=== PATIENT | male | born 1960 | race Caucasian/White ===

== ENCOUNTER 2021-01-17 08:21 | Outpatient (REF) | payer OTHER, SELFPAY ==
[2021-01-17 08:52] LABS: MANUAL DIFF FLAG NO
[2021-01-17 09:17] LABS: Basophils Absolute Auto 0.1 X10*3/uL (0.0-0.2); Basophils Percent Auto 0.8 % (0-2); Eosinophils Absolute Auto 0.3 X10*3/uL (0.0-0.4); Eosinophils Percent Auto 3.5 % (0-4); Hematocrit 46.1 % (42-52); Hemoglobin 15.6 g/dl (14.0-18.0); Imm Gran Abs Auto 0.03 X10*3/uL (0.00-0.03); Imm Gran Pct Auto 0.4 % (0.0-0.4); Lymphocytes Absolute Auto 2.1 X10*3/uL (1.2-4.9); Lymphocytes Percent Auto 29.4 % (20-40); Mean Corpuscular HGB Conc 33.8 g/dl (31.0-36.0); Mean Corpuscular Volume 91.5 fL (80-98); Mean Platelet Volume 10.1 fL (9.4-12.4); Monocytes Absolute Auto 0.6 X10*3/uL (0.1-1.2); Monocytes Percent Auto 8.2 % (2-11); Neutrophils Absolute Auto 4.1 X10*3/uL (2.0-8.3); Neutrophils Percent Auto 57.7 % (45-73); Platelet Count 235 X10*3/uL (160-400); Red Blood Count 5.04 X10*6/uL (4.60-5.80); Red Cell Distribution Width 12.9 % (11.0-16.0); White Blood Count 7.1 X10*3/uL (4.8-10.8)
[2021-01-17 09:19] LABS: Alanine Aminotransferase 31 U/L (0-40); Albumin Level 4.5 g/dL (3.5-5.0); Alkaline Phosphatase 55 U/L (39-117); Anion Gap 12 (12-20); Aspartate Amino Transferase 21 U/L (5-37); Bilirubin Total 0.6 mg/dL (0.0-1.0); Blood Urea Nitrogen 17 mg/dL (9-16); Calcium 9.1 mg/dL (8.4-10.2); Carbon Dioxide 27 mmol/L (22-29); Chloride 104 mmol/L (96-108); Cholesterol 196 mg/dL; Estimated Glomerular Filt Rate > 60; Glucose Fasting 120 mg/dL (60-99); HDL Cholesterol 67 mg/dL; LDL Cholesterol Calculated 94 mg/dl; Potassium 4.3 mmol/L (3.3-5.1); Sodium 139 mmol/L (135-145); Total Protein 7.4 g/dL (6.5-8.0); Triglycerides 175 mg/dL
[2021-01-17 09:31] LABS: Thyroid Stimulating Hormone 1.43 uIU/mL (0.32-4.0); Vitamin D 25-OH Total 35.3 ng/mL (>30)
[2021-01-17 10:50] LABS: Prostate Specific Antigen 0.51 ng/mL (<0.05-4.0)
== END 2021-01-17 08:22 | disposition home or self-care (01) ==
LOC: HO.LAB 08:21
PROVIDERS: Visit Provider Internal Medicine
DX: E78.5 Hyperlipidemia, unspecified (principal); R03.0 Elevated blood-pressure reading, without diagnosis of hypertension; K21.9 Gastro-esophageal reflux disease without esophagitis; Z12.5 Encounter for screening for malignant neoplasm of prostate
CPT/HCPCS: 36415; 80053; 80061; 82306; 84153; 84443; 85025

== ENCOUNTER → 2021-04-12 13:53 | Outpatient (REF) | payer OTHER, SELFPAY | LOC: HO.SL 13:53 | PROVIDERS: PCP Internal Medicine; Visit Provider Internal Medicine | DX: G47.33 Obstructive sleep apnea (adult) (pediatric) (principal) | CPT/HCPCS: 95806 ==

== ENCOUNTER → 2021-06-13 09:38 | Outpatient (BNVA) | payer OTHER, SELFPAY | PROVIDERS: PCP Internal Medicine; Visit Provider Internal Medicine | DX: G47.33 Obstructive sleep apnea (adult) (pediatric) (principal); I10 Essential (primary) hypertension; E66.9 Obesity, unspecified; R73.02 Impaired glucose tolerance (oral); F41.8 Other specified anxiety disorders; Z87.891 Personal history of nicotine dependence; Z68.31 Body mass index [BMI] 31.0-31.9, adult | CPT/HCPCS: 99202 ==

== ENCOUNTER 2021-08-14 11:23 | Day surgery (SDC) | payer OTHER, SELFPAY ==
--- NOTE | 2021-08-11 12:10 | HO.ANESPROP2 ---
Documented by User: Cristina Guerrero NP 08/11/21 12:12 HPI - Anesthesia Eval Consult details Narrative: 61yo M for Upper Endoscopy with Balloon Dilitation, Colonoscopy ? daily ETOH PMFSH Active Problems Active Problems: All Active Problems (Updated 07/07/21 @ 10:22 by Tracy Peraza MD) Generalized anxiety disorder (Acute) Annual physical exam (Acute) SILVERIO (obstructive sleep apnea) (Acute) Obesity (BMI 30.0-34.9) (Acute) Colon cancer screening (Acute) Allergic reaction (Acute) Psoriasis (Acute) Esophageal stricture (Acute) GERD (gastroesophageal reflux disease) (Acute) Hypertension (Acute) Obesity (BMI 30-39.9) (Acute) Impaired glucose tolerance (Acute) Past Medical History Medical History GERD (gastroesophageal reflux disease) Hypertension Impaired glucose tolerance Obesity (BMI 30-39.9) Obesity (BMI 30.0-34.9) SILVERIO (obstructive sleep apnea) Family History Family History Mother Heart attack Father No problems noted. Brother No problems noted. Sister No problems noted. Sister No problems noted. Brother Heart attack Son No problems noted. Son No problems noted. Daughter No problems noted. Surgical History Surgical History H/O left knee surgery History of cataract surgery History of shoulder surgery Social History Social History Housing: House Alcohol intake: current Alcohol intake frequency: 0-2 drinks per day Patient Tobacco Use Status: Former Tobacco user Years Smoked: Quit 1998 e-Cigarette/Vaping Use: Never Used Second Hand Smoke Exposure: No Use of substances other than those prescribed or required for medical reasons: No Are you DNR?: No Advance Directives: No Advance Directives Information Provided: No Recently lost weight without trying: No Nutrition Risks: No Nutritional Risk Current occupational status: employed Meds Allergies Allergy/AdvReac Type Severity Reaction Status Date / Time No Known Allergies Allergy Verified 07/07/21 10:06 Home Medications Medication Instructions Recorded Confirmed Last Taken Type aspirin 81 mg tablet,delayed 81 mg PO DAILY 03/09/21 07/07/21 Unknown History release (Adult Low Dose Aspirin) atorvastatin 20 mg tablet 20 mg PO DAILY 03/09/21 07/07/21 Unknown History calcium citrate 250 mg PO DAILY 03/09/21 07/07/21 Unknown History cholecalciferol (vitamin D3) 25 25 mcg PO DAILY 03/09/21 07/07/21 Unknown History mcg (1,000 unit) capsule diltiazem HCl 180 mg capsule,24 180 mg PO DAILY 03/09/21 07/07/21 08/14/21 History hr,extended release folic acid 400 mcg tablet 0.4 mg PO DAILY 03/09/21 07/07/21 Unknown History metoprolol succinate 50 mg 50 mg PO DAILY 03/09/21 07/07/21 08/14/21 History tablet,extended release 24 hr omeprazole 20 mg capsule,delayed 20 mg PO DAILY 03/09/21 07/07/21 08/14/21 History release pyridoxine (vitamin B6) 50 mg 50 mg PO DAILY 03/09/21 07/07/21 Unknown History tablet Exam Exam Date and Time: August 11, 2021 1210 Pertinent Lab Results Pertinent Lab Results: Laboratory Tests 01/17/21 01/17/21 08:34 08:34 WBC 7.1 Hgb 15.6 Hct 46.1 Plt Count 235 Sodium 139 Potassium 4.3 Chloride 104 Carbon Dioxide 27 BUN 17 H Creatinine 0.96 Assessment and Plan Assessment Anesthesia Assessment: Chart Reviewed Documented by User: Laureen Dahl MD 08/14/21 12:36 [facility] Past Medical History Medical History GERD (gastroesophageal reflux disease) Hypertension Impaired glucose tolerance Obesity (BMI 30-39.9) Obesity (BMI 30.0-34.9) SILVERIO (obstructive sleep apnea) Family History Family History Mother Heart attack Father No problems noted. Brother No problems noted. Sister No problems noted. Sister No problems noted. Brother Heart attack Son No problems noted. Son No problems noted. Daughter No problems noted. Surgical History Surgical History H/O left knee surgery History of cataract surgery History of shoulder surgery History of Problems with Anesthesia: No Social History Social History Housing: House Alcohol intake: current Alcohol intake frequency: 0-2 drinks per day Patient Tobacco Use Status: Former Tobacco user Years Smoked: Quit 1998 e-Cigarette/Vaping Use: Never Used Second Hand Smoke Exposure: No Use of substances other than those prescribed or required for medical reasons: No Are you DNR?: No Advance Directives: No Advance Directives Information Provided: No Recently lost weight without trying: No Nutrition Risks: No Nutritional Risk Current occupational status: employed Meds Allergies Allergy/AdvReac Type Severity Reaction Status Date / Time No Known Allergies Allergy Verified 07/07/21 10:06 Home Medications Medication Instructions Recorded Confirmed Last Taken Type aspirin 81 mg tablet,delayed 81 mg PO DAILY 03/09/21 07/07/21 Unknown History release (Adult Low Dose Aspirin) atorvastatin 20 mg tablet 20 mg PO DAILY 03/09/21 07/07/21 Unknown History calcium citrate 250 mg PO DAILY 03/09/21 07/07/21 Unknown History cholecalciferol (vitamin D3) 25 25 mcg PO DAILY 03/09/21 07/07/21 Unknown History mcg (1,000 unit) capsule diltiazem HCl 180 mg capsule,24 180 mg PO DAILY 03/09/21 07/07/21 08/14/21 History hr,extended release folic acid 400 mcg tablet 0.4 mg PO DAILY 03/09/21 07/07/21 Unknown History metoprolol succinate 50 mg 50 mg PO DAILY 03/09/21 07/07/21 08/14/21 History tablet,extended release 24 hr omeprazole 20 mg capsule,delayed 20 mg PO DAILY 03/09/21 07/07/21 08/14/21 History release pyridoxine (vitamin B6) 50 mg 50 mg PO DAILY 03/09/21 07/07/21 Unknown History tablet Exam Airway Mallampati Class: II TM Dist: >3cm Neck ROM: Full Loose/Missing/Broken Teeth: No Heart: RRR Lungs: CTA Assessment and Plan Assessment Anesthesia Assessment: Anesthesia Plan Discussed Final Anesthetic Review History of Problems with Anesthesia: No NPO: Yes ASA Class: III Final Preanesthetic Review: Meds/Allgs Chart Reviewed, Consent Obtained/Reviewed and Anes Risks/Benef Reviewed Patient Risk: Intermediate Procedure Risk: Intermediate Anesthetic Plan Anesthetic Plan: MAC: Disposition: Standard PACU
[2021-08-14 11:51] VITALS: BMI 31.1
[2021-08-14 12:00] VITALS: BP 147/83; PULSE 91; RESP 16; TEMP 36.4; O2SAT 94
--- NOTE | 2021-08-14 12:35 | PC.NURSE ---
myself n another rn attempting multiple iv insertions. anesthesia by the bedside. alisia well. patient states hes a hardstick
[2021-08-14] MEDS: Lactated Ringers 1,000 ML 100 ML IVCONT (12:36)
[2021-08-14 14:05] VITALS: BP 99/56; PULSE 64; RESP 16; TEMP 36.8; O2SAT 95
--- NOTE | 2021-08-14 14:10 | PM.OP ---
Brief Operative Note Date of Service: 08/14/21 Pre-op diagnosis: GERD, Dysphagia, Screening Post-op diagnosis: other (Hiatal hernia, GERD, Very mild distal esophageal stricture, Colon polyps) Procedure: EGD with Balloon Dilation and biopsies, Colonoscopy to the cecum and TI with cold snare polypectomy(Cecum) and bx/removal of polyps Surgeon: Dayron Yousif Anesthesia: MAC Was an [employer] Technician used for this Procedure?: No Estimated blood loss (mL): 3.0 Pathology: other (A. EG Junction at 39cm B. Cecal polyp C. Ascending colon polyp D. Rectal polyp) Condition: stable Disposition: PACU
[2021-08-14 14:20] VITALS: BP 101/59; PULSE 71; RESP 16; O2SAT 93
[2021-08-14 14:35] VITALS: BP 117/77; PULSE 55; RESP 20; TEMP 36.8; O2SAT 95
--- NOTE | 2021-08-14 15:16 | OP_ITS ---
SURGEON: Dayron Yousif MD INDICATIONS: The patient presents for evaluation of gastroesophageal reflux, dysphagia, and colorectal cancer screening. Full consent has been obtained from him for this, including risks of bleeding and perforation. PREOPERATIVE DIAGNOSIS: POSTOPERATIVE DIAGNOSIS: PROCEDURE PERFORMED: Esophagogastroduodenoscopy with balloon dilation of gastroesophageal junction, and biopsies, and colonoscopy to the cecum and terminal ileum with cold snare polypectomy, and biopsy and removal of polyps. ESTIMATED BLOOD LOSS: COMPLICATIONS: ANESTHESIA: Monitored anesthesia care. ASSISTANTS: SPECIMENS: PREOPERATIVE DIAGNOSES: Colorectal cancer screening and dysphagia, gastroesophageal reflux. POSTOPERATIVE DIAGNOSES: Colorectal cancer screening and dysphagia, gastroesophageal reflux, hiatal hernia, colon polyps, diverticulosis, and internal hemorrhoids. DESCRIPTION OF PROCEDURE: The patient was placed in the left lateral decubitus position. The Olympus video gastroscope was passed in the posterior oropharynx and upper esophagus under direct vision. The scope was passed slowly into the distal esophagus. The gastroesophageal junction appeared at 39 cm. There was a very minimal irregularity consistent with reflux, but no evidence of esophagitis nor any definitive evidence of Don's mucosa. There may have been a very minimal fibrotic stricture, but the scope easily entered the stomach. There was a small to moderate-sized hiatal hernia. The scope was advanced to pylorus and the duodenum was cannulated the descending portion. The duodenum including the bulb appeared normal without mass or ulceration. The scope was withdrawn back into the stomach. The gastric antrum and body appeared normal with good peristalsis. Scope was retroflexed visualizing the proximal stomach carefully, which appeared normal, without any sign of mass or ulceration. The scope was straightened out and withdrawn back into the esophagus. I did use a [employer] incremental balloon to dilate the gastroesophageal junction from 18 mm to 19 mm to 20 mm at the recommended pressure for between 30 and 60 seconds each. There appeared to be some minimal heme noted post-dilation. The 20 mm balloon actually pulled easily into and out of the esophagus. I did obtain some biopsies at the EG junction at 39 cm. Proximal to this, the esophageal mucosa appeared normal. There was no sign of any proximal esophageal rings nor stricture. The scope was withdrawn from the patient. He was turned around for the colonoscopy. The digital rectal exam revealed no abnormalities. The Olympus video pediatric colonoscope was entered into the rectum and advanced easily to the cecum. Once in the cecum, I did identify cecal pouch with appendiceal orifice a normal-appearing ileocecal valve. The terminal ileum was cannulated and appeared normal. The scope was withdrawn back in the colon. In the cecum, was an approximately 5 or 6 mm slightly raised polyp, which was removed in its majority with a cold snare polypectomy. Two small portions were then biopsied and removed with cold biopsy forceps. The polyp was recovered by suction. The remainder of the cecum appeared normal. The scope was then slowly withdrawn assessing all mucosal surfaces carefully. Preparation was excellent. In the ascending colon and in the rectum, were flat approximately 5 mm polyps, which were each biopsied and completely removed with cold biopsy forceps. I did not visualize any other polyps, colitis, nor angiodysplasia. There was a mild amount of sigmoid diverticulosis. In the rectum, scope was retroflexed visualizing small internal hemorrhoids, but no other pathology. The rectal mucosa appeared normal. The scope was straightened out and withdrawn from the patient. He tolerated the procedures well and was returned to the recovery area in stable condition. IMPRESSION: 1. Hiatal hernia, gastroesophageal reflux, question of very mild distal esophageal stricture, status post balloon dilation. 2. Colon polyps. 3. Diverticulosis. 4. Internal hemorrhoids. PLAN: The results of the pathology will be checked. If the colon polyps are tubular adenoma, I would recommend a followup colonoscopy in 5 years. If they are only hyperplastic, I would recommend a followup colonoscopy in 10 years. He was advised to continue his daily omeprazole. He was advised not to use any aspirin and NSAIDs for 1 more week. If he continues to have significant dysphagia despite today's procedure, I would then recommend a barium swallow with a barium tablet to further assess things. May very well be having some symptoms from the hiatal hernia in regard to esophageal spasm and reflux. This has been discussed with his . MD JESSE Luna/MARIAELENA / [id number]
== END 2021-08-14 15:19 | disposition home or self-care (01) ==
PROVIDERS: PCP Internal Medicine; Visit Provider Internal Medicine
PROC: (CPT 45385; principal; 2021-08-14 12:30)
DX: Z12.11 Encounter for screening for malignant neoplasm of colon (principal); D12.0 Benign neoplasm of cecum; D12.2 Benign neoplasm of ascending colon; K62.1 Rectal polyp; K57.30 Diverticulosis of large intestine without perforation or abscess without bleeding; K64.8 Other hemorrhoids; K22.2 Esophageal obstruction; R13.19 Other dysphagia; K21.9 Gastro-esophageal reflux disease without esophagitis; K44.9 Diaphragmatic hernia without obstruction or gangrene; Z79.899 Other long term (current) drug therapy
CPT/HCPCS: 45385; 45380; 43249; 43239; 88305; C1726; J3010

== ENCOUNTER → 2021-09-11 10:16 | Outpatient (BNVA) | payer OTHER, SELFPAY | PROVIDERS: PCP Internal Medicine; Visit Provider Internal Medicine | DX: G47.33 Obstructive sleep apnea (adult) (pediatric) (principal); E66.9 Obesity, unspecified; Z68.32 Body mass index [BMI] 32.0-32.9, adult | CPT/HCPCS: 99212 ==

== ENCOUNTER 2021-11-06 09:54 | Outpatient (REF) | payer OTHER, SELFPAY ==
[2021-11-06 10:17] LABS: MANUAL DIFF FLAG NO
[2021-11-06 10:53] LABS: Basophils Absolute Auto 0.1 X10*3/uL (0.0-0.2); Basophils Percent Auto 0.8 % (0-2); Eosinophils Absolute Auto 0.2 X10*3/uL (0.0-0.4); Eosinophils Percent Auto 2.6 % (0-4); Hemoglobin 13.5 g/dl (14.0-18.0); Imm Gran Abs Auto 0.04 X10*3/uL (0.00-0.03); Imm Gran Pct Auto 0.5 % (0.0-0.4); Lymphocytes Absolute Auto 1.9 X10*3/uL (1.2-4.9); Lymphocytes Percent Auto 25.1 % (20-40); Mean Corpuscular HGB Conc 33.8 g/dl (31.0-36.0); Mean Platelet Volume 9.8 fL (9.4-12.4); Monocytes Absolute Auto 0.6 X10*3/uL (0.1-1.2); Monocytes Percent Auto 8.3 % (2-11); Neutrophils Absolute Auto 4.8 x10*3/uL (2.0-8.3); Neutrophils Percent Auto 62.7 % (45-73); Platelet Count 260 X10*3/uL (160-400); Red Blood Count 4.35 X10*6/uL (4.60-5.80); Red Cell Distribution Width 12.7 % (11.0-16.0); White Blood Count 7.6 X10*3/uL (4.8-10.8)
== END 2021-11-06 09:55 | disposition home or self-care (01) ==
LOC: HO.LAB 09:54
PROVIDERS: Absent Provider Internal Medicine; PCP Internal Medicine; Visit Provider Physician Assistant
DX: S30.1XXA Contusion of abdominal wall, initial encounter (principal)
CPT/HCPCS: 36415; 85025

== ENCOUNTER 2022-01-29 10:26 | Outpatient (REF) | payer OTHER, SELFPAY ==
[2022-01-29 10:29] VITALS: BP 153/75; PULSE 75; RESP 16; TEMP 36.8; O2SAT 97
[2022-01-29 10:30] VITALS: BMI 31.1
== END 2022-01-29 10:27 | disposition home or self-care (01) ==
LOC: HO.MS 10:26
PROVIDERS: PCP Internal Medicine; Visit Provider Ophthalmology
PROC: (CPT 66821; principal; 2022-01-29 12:10)
DX: H26.491 Other secondary cataract, right eye (principal); Z96.1 Presence of intraocular lens; H52.4 Presbyopia; H35.371 Puckering of macula, right eye; I10 Essential (primary) hypertension; Z79.82 Long term (current) use of aspirin; Z79.899 Other long term (current) drug therapy; Z87.891 Personal history of nicotine dependence
CPT/HCPCS: 66821

== ENCOUNTER → 2022-03-08 09:53 | Outpatient (BNVA) | payer OTHER, SELFPAY | PROVIDERS: PCP Internal Medicine; Visit Provider Internal Medicine | DX: G47.33 Obstructive sleep apnea (adult) (pediatric) (principal); E66.9 Obesity, unspecified; Z68.32 Body mass index [BMI] 32.0-32.9, adult | CPT/HCPCS: 99212 ==

== ENCOUNTER 2022-06-13 09:51 | Outpatient (REF) | payer OTHER, SELFPAY ==
[2022-06-13 10:03] LABS: MANUAL DIFF FLAG NO
[2022-06-13 10:25] LABS: Basophils Absolute Auto 0.1 X10*3/uL (0.0-0.2); Eosinophils Absolute Auto 0.2 X10*3/uL (0.0-0.4); Eosinophils Percent Auto 3.4 % (0-4); Hematocrit 44.7 % (42.0-52.0); Hemoglobin 15.3 g/dl (14.0-18.0); Imm Gran Abs Auto 0.02 X10*3/uL (0.00-0.03); Imm Gran Pct Auto 0.3 % (0.0-0.4); Lymphocytes Absolute Auto 1.8 X10*3/uL (1.2-4.9); Lymphocytes Percent Auto 26.1 % (20-40); Mean Corpuscular HGB Conc 34.2 g/dl (31.0-36.0); Mean Corpuscular Hemoglobin 31.1 pg (27.0-33.0); Mean Corpuscular Volume 90.9 fL (80.0-98.0); Mean Platelet Volume 9.5 fL (9.4-12.4); Monocytes Absolute Auto 0.6 X10*3/uL (0.1-1.2); Monocytes Percent Auto 8.7 % (2-11); Neutrophils Absolute Auto 4.3 x10*3/uL (2.0-8.3); Neutrophils Percent Auto 60.5 % (45-73); Platelet Count 241 X10*3/uL (160-400); Red Blood Count 4.92 X10*6/uL (4.60-5.80); Red Cell Distribution Width 12.7 % (11.0-16.0)
[2022-06-13 10:38] LABS: Estimated Average Glucose 114 mg/dL; Hemoglobin A1C 150.3381 umol/L; Hemoglobin A1c % 5.6 %
[2022-06-13 10:53] LABS: Alanine Aminotransferase 40 U/L (0-40); Albumin Level 4.5 g/dL (3.5-5.0); Alkaline Phosphatase 58 U/L (39-117); Anion Gap 16 (12-20); Aspartate Amino Transferase 26 U/L (5-37); Bilirubin Total 0.6 mg/dL (0.0-1.0); Blood Urea Nitrogen 20 mg/dL (9-16); Calcium 9.2 mg/dL (8.4-10.2); Carbon Dioxide 25 mmol/L (22-29); Chloride 103 mmol/L (96-108); Cholesterol 195 mg/dL; Estimated Glomerular Filt Rate > 60; Glucose Random 104 mg/dL (60-115); HDL Cholesterol 56 mg/dL; LDL Cholesterol Calculated 98 mg/dl; Potassium 4.2 mmol/L (3.3-5.1); Sodium 140 mmol/L (135-145); Total Protein 7.6 g/dL (6.5-8.0); Triglycerides 209 mg/dL
[2022-06-13 11:06] LABS: Free T4 (Free Thyroxine) 0.85 ng/dL (0.71-1.85); Prostate Specific Antigen Scr 0.93 ng/mL (<0.05-4.0); Vitamin D 25-OH Total 50.5 ng/mL (>30)
[2022-06-13 11:56] LABS: Folate > 20.0 ng/mL (> or = 4.0); Vitamin B12 289 pg/mL (200-900)
== END 2022-06-13 09:52 | disposition home or self-care (01) ==
LOC: HO.LAB 09:51
PROVIDERS: PCP Internal Medicine; Visit Provider Internal Medicine
DX: Z12.5 Encounter for screening for malignant neoplasm of prostate (principal); R73.02 Impaired glucose tolerance (oral); E78.00 Pure hypercholesterolemia, unspecified; I10 Essential (primary) hypertension
CPT/HCPCS: 36415; 80053; 80061; 82306; 82607; 82746; 83036; 84153; 84439; 84443; 85025

== ENCOUNTER → 2022-08-16 09:35 | Outpatient (BNVA) | payer OTHER, SELFPAY | PROVIDERS: PCP Internal Medicine; Visit Provider Internal Medicine | DX: G47.33 Obstructive sleep apnea (adult) (pediatric) (principal); E66.9 Obesity, unspecified; Z68.32 Body mass index [BMI] 32.0-32.9, adult | CPT/HCPCS: 99212 ==

== ENCOUNTER → 2023-02-11 09:31 | Outpatient (BNVA) | payer OTHER, SELFPAY | PROVIDERS: PCP Internal Medicine; Visit Provider Internal Medicine | DX: G47.33 Obstructive sleep apnea (adult) (pediatric) (principal); E66.9 Obesity, unspecified; Z68.33 Body mass index [BMI] 33.0-33.9, adult | CPT/HCPCS: 99212 ==

== ENCOUNTER 2023-06-18 09:42 | Outpatient (AMB) | payer OTHER, SELFPAY ==
[2023-06-18 09:46] VITALS: BP 144/80; PULSE 78; O2SAT 98; BMI 31.5
--- NOTE | 2023-06-18 09:46 | A.OFFPC_ITS ---
Vital Signs 06/18/23 09:46 06/18/23 10:23 Height 6 ft Weight 232 lb BMI 31.5 BP 144/80 H 132/86 Blood Pressure Location Lt brachial Lt brachial Position Sitting Sitting Pulse 78 Pulse Source Pulse Oximeter Pulse Oximetry (%) 98 Oxygen Delivery Method Room Air Intake Visit Reasons: HTN,IGT, GERD, bilateral feet pain Allergies clindamycin Adverse Reaction (Verified 06/18/23 09:46) Anaphylaxis Medication List - Last Reconciled 06/18/23 by Tracy Peraza MD aspirin (Adult Low Dose Aspirin) 81 mg PO DAILY atorvastatin 20 mg PO DAILY 90 days calcium citrate 250 mg PO DAILY cholecalciferol (vitamin D3) 25 mcg PO DAILY diltiazem HCl TAKE 1 CAPSULE BY MOUTH DAILY folic acid 0.4 mg PO DAILY metoprolol succinate ER 50 mg PO DAILY 90 days omeprazole 40 mg PO BID pyridoxine (vitamin B6) 50 mg PO DAILY zolpidem 5 mg PO BEDTIME PRN 90 days Tobacco use date assessed: 02/13/23 Dental Screening Dental Screen Date: 06/18/23 Did you have a dental visit in the last 12 months?: Yes Did you have a dental problem in the last 6 months where you did not have access to dental care?: No Was dental information given to patient?: Patient has dentist HPI HTN,IGT, GERD HPI Details 62-year-old obese male with impaired glu cose tolerance hypertension GERD obstructive sleep apnea coming in for follow-up. Patient was last seen in February 2023 for physical exam. Colonoscopy is up-to-date August 2021. [facility] Medical History GERD (gastroesophageal reflux disease) Hypertension Impaired glucose tolerance Obesity (BMI 30.0-34.9) SILVERIO (obstructive sleep apnea) Surgical History H/O left knee surgery History of cataract surgery History of shoulder surgery Family History (Updated 06/18/23 @ 09:[address] [facility]) Mother Heart attack Father No problems noted. Brother No problems noted. Sister No problems noted. Sister No problems noted. Brother Heart attack Son No problems noted. Son No problems noted. Daughter No problems noted. Social History (Updated 02/13/23 @ 14:10 by NAVID Burr) Housing: House Alcohol intake: current Alcohol intake frequency: a few times a week Patient Tobacco Use Status: Former Tobacco user Tobacco use type: Cigarette Years Smoked: Quit 1998 e-Cigarette/Vaping Use: Never Used Second Hand Smoke Exposure: No Current occupational status: employed Cognitive needs: No Hearing needs: No Vision needs: Yes (reading glasses) Questionnaire PHQ-9 Over the last 2 weeks, how often have you been bothered by any of the following problems? 1. Little interest or pleasure in doing things: more than half the days 2. Feeling down, depressed, or hopeless: more than half the days 3. Trouble falling or staying asleep, or sleeping too much: more than half the days 4. Feeling tired or having little energy: more than half the days 5. Poor appetite or overeating: not at all 6. Feeling bad about yourself - or that you are a failure or have let yourself or your family down: not at all 7. Trouble concentrating on things, such as reading the newspaper or watching television: not at all 8. Moving or speaking so slowly that other people could have noticed. Or the opposite - being so fidgety or restless that you have been moving around a lot more than usual: not at all 9. Thoughts that you would be better off or of hurting yourself in some way: not at all Total score: 8 Depression Screening Interpretation: Positive 32242 - PHQ-9 Billing: Yes Source: Developed by Drs. Dayron Osborne, Ronald Mcclure and colleagues, with an educational joya from [employer]. Thrive Questionnaire Date Thrive assessed: 02/13/23 AUDIT C Alcohol Use Questionnaire (AUDIT-C) 1. How often do you have a drink containing alcohol?: 4 or more times a week 2. How many drinks containing alcohol do you have on a typical day when you are drinking?: 1 or 2 3. How often do you have six or more drinks on one occasion?: Never Total Score: 4 YADIRA-7 AMB Questionnaire YADIRA-7 Date YADIRA - 7 assessed: 02/13/23 Source: Developed by Drs. Dayron Osborne, Ronald Mcclure and colleagues, with an educational joya from [employer]. Physical exam (Primary Care) Vital Signs: Last Vital Signs Pulse 78 06/18/23 09:46 BP 132/86 06/18/23 10:23 Pulse Ox 98 06/18/23 09:46 Oxygen Delivery Method Room Air 06/18/23 09:46 BMI result Body Mass Index 31.5 Tobacco/Smoking Status: Tobacco use Status Tobacco use date assessed 02/13/23 06/18/23 09:54 Patient Tobacco Use Status Former Tobacco user 06/18/23 09:54 Tobacco use type Cigarette 06/18/23 09:54 e-Cigarette/Vaping Use Never Used 06/18/23 09:54 PHQ-9: PHQ-9 Score PHQ-9: Total score 8 06/18/23 19:10 Depression Screening Interpretation: Positive Thrive Assessment: Date of Thrive Assessment Date Thrive assessed 02/13/23 06/18/23 09:54 Const General: alert; No acute distress Eyes Conjunctivae: conjunctivae normal Resp Auscultation: clear to auscultation bilaterally Cardio Rate: regular rate Rhythm: regular rhythm GI Inspection: Yes normal to inspection Extrem General: Yes normal to inspection and No edema Assessment and Plan Assessment & Plan (1) Impaired glucose tolerance: Code(s): R73.02 - Impaired glucose tolerance (oral) Plan: Decrease the amount of carbohydrate intake, pasta, bread, rice and potatoes are all sugar and that is aside from all the sweet stuff, remember that fruits are good but they are Sweet also. (2) Hypertension: Code(s): I10 - Essential (primary) hypertension Qualifiers: Hypertension type: essential hypertension Qualified Code(s): I10 - Essential (primary) hypertension Plan: Continue with blood pressure medication. Decrease salt intake and exercise patient takes diltiazem metoprolol (3) GERD (gastroesophageal reflux disease): Code(s): K21.9 - Gastro-esophageal reflux disease without esophagitis Qualifiers: Esophagitis presence: without esophagitis Qualified Code(s): K21.9 - Gastro-esophageal reflux disease without esophagitis Plan: Avoid the foods that causes that usually spicy foods, tomato products, juices, coffee, soda and foods that your sensitive to. After eating do not lie down, allow 3-4 hours before in lie down. And keep the head of bed above 30 degrees to avoid the acid from going up. On omeprazole 40 mg twice a day (4) Obesity (BMI 30.0-34.9): Comment: PATIENT REMAINS MODERATELY OBESE. DISCUSSED ABOUT NEED TO LOSE WEIGHT. HE IS ENCOURAGED TO WALK DAILY, AND REDUCE INTAKE OF CARBOHYDRATES./CALORIES. Code(s): E66.9 - Obesity, unspecified Plan: Diet and exercise (5) SILVERIO (obstructive sleep apnea): Comment: PATIENT USING CPAP REGULARLY, COMPLIANCE IS OK . RE-INFORCED TO USE CPAP EVERY NIGHT . Order for new supplies is sent. Revisit Q 6 months Code(s): G47.33 - Obstructive sleep apnea (adult) (pediatric) Plan: Continue to use the CPAP more than 4 hours a night and benefits from this (6) Generalized anxiety disorder: Comment[facility] Code(s): F41.1 - Generalized anxiety disorder Plan: [place] (7) Hypercholesterolemia: Code(s): E78.00 - Pure hypercholesterolemia, unspecified Plan: Avoid fried foods, chicken skin, eggs, butter margarine, pastries and meat. Be it pork or beef they have a lot of cholesterol LDL goal of less than 130 and triglyceride of less than 150 (8) Insomnia: Code(s): G47.00 - Insomnia, unspecified Plan: zolpidem did not work and so change to seroquel (9) Plantar fasciitis, bilateral: Code(s): M72.2 - Plantar fascial fibromatosis Orders: Orders Complete Blood Count Auto Diff Today Z13.0 - Encounter for screening for diseases of the blood and blood-forming organs and certain disorders involving the immune mechanism Comprehensive Met. Panel Today I10 - Essential (primary) hypertension Hemoglobin A1c Today R73.02 - Impaired glucose tolerance (oral) Lipid Panel Today I10 - Essential (primary) hypertension, Z13.220 - Encounter for screening for lipoid disorders PSA,Total (Free>4and<10) Today Z12.5 - Encounter for screening for malignant neoplasm of prostate TSH reflex Free T4 Today Z13.29 - Encounter for screening for other suspected endocrine disorder Referrals Podiatry Referral M72.2 - Plantar fascial fibromatosis Medications: New quetiapine (Seroquel) 50 mg PO BEDTIME 90 tabs 1RF G47.00 - Insomnia, unspecified Discontinued zolpidem Discontinued Reason: None 5 mg PO BEDTIME 90 days PRN 90 tabs 1RF sleep G47.00 - Insomnia, unspecified Coding Level of Care Code Est Pt Level 4 (72802) Diagnoses Impaired glucose tolerance R73.02 Essential hypertension I10 Hypertension type: essential hypertension Gastroesophageal reflux disease without esophagitis K21.9 Esophagitis presence: without esophagitis Obesity (BMI 30.0-34.9) E66.9 SILVERIO (obstructive sleep apnea) G47.33 Generalized anxiety disorder F41.1 Hypercholesterolemia E78.00 Insomnia G47.00 Plantar fasciitis, bilateral M72.2
[2023-06-18 10:23] VITALS: BP 132/86
== END 2023-06-18 10:28 | disposition home or self-care (01) ==
PROVIDERS: PCP Internal Medicine; Visit Provider Internal Medicine
DX: R73.02 Impaired glucose tolerance (oral) (principal); I10 Essential (primary) hypertension; K21.9 Gastro-esophageal reflux disease without esophagitis; G47.33 Obstructive sleep apnea (adult) (pediatric); F41.1 Generalized anxiety disorder; E78.00 Pure hypercholesterolemia, unspecified; G47.00 Insomnia, unspecified; M72.2 Plantar fascial fibromatosis
CPT/HCPCS: 99214

== ENCOUNTER 2023-06-19 08:44 | Outpatient (REF) | payer OTHER, SELFPAY ==
[2023-06-19 08:59] LABS: MANUAL DIFF FLAG NO
[2023-06-19 09:26] LABS: Basophils Absolute Auto 0.1 X10*3/uL (0.0-0.2); Basophils Percent Auto 0.7 % (0-2); Eosinophils Absolute Auto 0.2 X10*3/uL (0.0-0.4); Eosinophils Percent Auto 1.5 % (0-4); Hematocrit 46.3 % (42.0-52.0); Hemoglobin 15.9 g/dl (14.0-18.0); Imm Gran Abs Auto 0.03 X10*3/uL (0.00-0.03); Imm Gran Pct Auto 0.3 % (0.0-0.4); Lymphocytes Absolute Auto 1.9 X10*3/uL (1.2-4.9); Lymphocytes Percent Auto 19.4 % (20-40); Mean Corpuscular HGB Conc 34.3 g/dl (31.0-36.0); Mean Corpuscular Hemoglobin 32.1 pg (27.0-33.0); Mean Corpuscular Volume 93.3 fL (80.0-98.0); Mean Platelet Volume 10.1 fL (9.4-12.4); Monocytes Absolute Auto 0.9 X10*3/uL (0.1-1.2); Monocytes Percent Auto 8.7 % (2-11); Neutrophils Percent Auto 69.4 % (45-73); Platelet Count 244 X10*3/uL (160-400); Red Blood Count 4.96 X10*6/uL (4.60-5.80); Red Cell Distribution Width 12.8 % (11.0-16.0)
[2023-06-19 09:31] LABS: Estimated Average Glucose 108 mg/dL; Hemoglobin A1c % 5.4 % (<6.0)
[2023-06-19 10:04] LABS: Alanine Aminotransferase 46 U/L (0-40); Albumin Level 4.6 g/dL (3.5-5.0); Alkaline Phosphatase 51 U/L (39-117); Anion Gap 15 (12-20); Aspartate Amino Transferase 33 U/L (5-37); Bilirubin Total 0.7 mg/dL (0.0-1.0); Blood Urea Nitrogen 23 mg/dL (9-16); Carbon Dioxide 26 mmol/L (22-29); Chloride 107 mmol/L (96-108); Cholesterol 208 mg/dL (<200); Estimated Glomerular Filt Rate > 60; Glucose Random 96 mg/dL (60-115); HDL Cholesterol 64 mg/dL (>40); LDL Cholesterol Calculated 115 mg/dL (<100); Potassium 4.1 mmol/L (3.3-5.1); Sodium 144 mmol/L (135-145); Total Protein 7.9 g/dL (6.5-8.0); Triglycerides 147 mg/dL (<150)
[2023-06-19 10:12] LABS: PSA,Total (Free>4and<10) 0.51 ng/mL (0.00-4.00)
[2023-06-19 10:22] LABS: TSH reflex Free T4 1.27 uIU/mL (0.32-4.0)
== END 2023-06-19 08:45 | disposition home or self-care (01) ==
LOC: HO.LAB 08:44
PROVIDERS: PCP Internal Medicine; Visit Provider Internal Medicine
DX: I10 Essential (primary) hypertension (principal); R73.02 Impaired glucose tolerance (oral); Z13.29 Encounter for screening for other suspected endocrine disorder; Z13.0 Encounter for screening for diseases of the blood and blood-forming organs and certain disorders involving the immune mechanism; Z13.220 Encounter for screening for lipoid disorders; Z12.5 Encounter for screening for malignant neoplasm of prostate
CPT/HCPCS: 36415; 80053; 80061; 83036; 84153; 84443; 85025

== ENCOUNTER 2023-07-12 08:44 | Outpatient (REF) | payer OTHER, SELFPAY | END 2023-07-12 08:45 | disposition home or self-care (01) | LOC: HO.US 08:44 | PROVIDERS: PCP Internal Medicine; Visit Provider Internal Medicine | DX: R79.89 Other specified abnormal findings of blood chemistry (principal) | CPT/HCPCS: 76700 ==

== ENCOUNTER 2023-07-18 11:43 | Outpatient (REF) | payer OTHER, SELFPAY ==
[2023-07-18 13:01] LABS: Alanine Aminotransferase 28 U/L (0-40); Albumin Level 4.4 g/dL (3.5-5.0); Alkaline Phosphatase 51 U/L (39-117); Aspartate Amino Transferase 20 U/L (5-37); Bilirubin Direct 0.2 mg/dL (0.0-0.5); Bilirubin Total 0.5 mg/dL (0.0-1.0); Total Protein 7.4 g/dL (6.5-8.0)
[2023-07-19 04:03] LABS: HBS Num1 0.21 mIU/mL (0-7.99); HBc Num1 0.08 S/CO (0.00-0.79); HBsAGNum1 0.31 S/CO (0.00-0.99); Hepatitis B Core Antibody Nonreactive (Nonreactive); Hepatitis B Surface Antigen Negative (Negative); ~HepC Num1 0.07 S/CO (0.00-0.79); ~Hepatitis B Surface Antibody NONREACTIVE (Nonreactive); ~Hepatitis C Antibody Nonreactive (Nonreactive)
== END 2023-07-18 11:44 | disposition home or self-care (01) ==
LOC: HO.LAB 11:43
PROVIDERS: PCP Internal Medicine; Visit Provider Internal Medicine
DX: R79.89 Other specified abnormal findings of blood chemistry (principal)
CPT/HCPCS: 36415; 80076; 86704; 86706; 86803; 87340

== ENCOUNTER 2023-11-06 10:11 | Outpatient (AMB) | payer OTHER, SELFPAY ==
--- NOTE | 2023-11-06 10:14 | MHC.OFFVIS ---
Intake Vital Signs 11/06/23 10:17 Height 6 ft Weight 246 lb 14.684 oz BMI 33.5 BP 110/70 Blood Pressure Location Lt brachial Position Sitting Pulse 67 Pulse Source Pulse Oximeter Pulse Oximetry (%) 96 Oxygen Delivery Method Room Air Intake Visit Reasons: Obstructive sleep apnea Intake Note: pt is here for follow up and states he does okay, but he is still getting gimenez on side of face. Park Aide Required: No Allergies clindamycin Adverse Reaction (Verified 11/06/23 10:32) Anaphylaxis Medication List - Last Reconciled 11/06/23 by Alfredito Rivas MD aspirin (Adult Low Dose Aspirin) 81 mg PO DAILY atorvastatin 20 mg PO DAILY 90 days bupropion HCl 450 mg PO DAILY calcium citrate 250 mg PO DAILY cholecalciferol (vitamin D3) 25 mcg PO DAILY diltiazem HCl TAKE 1 CAPSULE BY MOUTH DAILY folic acid 0.4 mg PO DAILY metoprolol succinate ER 50 mg PO DAILY 90 days omeprazole 40 mg PO BID pyridoxine (vitamin B6) 50 mg PO DAILY quetiapine (Seroquel) 50 mg PO BEDTIME Do you need a note to return to daycare/school/sports/work: No HPI Obstructive sleep apnea HPI Details 63 YEARS OLD GENTLEMAN WITH MODERATE OBESITY, AND OBSTRUCTIVE SLEEP APNEA, IS HERE AFTER 6 MONTHS FOR FOLLOW-UP. HE HAS BEEN USING CPAP REGULARLY EVERY NIGHT FOR AT LEAST 6 HOURS PER NIGHT, SLEEPS WELL BUT HAS TO TAKE SEROQUEL 50 MG AT BEDTIME. HE COMPLAINS OF SOME IRRITATION OF THE CHEEKS WITH SOME GIMENEZ ON THE FACE WHEN HE WAKES UP IN THE MORNING. HE HAS NOT BEEN PHYSICALLY ACTIVE AND HAS GAINED ABOUT 14 LB IN THE LAST 4 MONTHS. HE BLAMES IT ON WINTER MONTHS. HAS NOT BEEN WALKING. [facility]LY [facility] Medical History LFT elevation SILVERIO (obstructive sleep apnea) Obesity (BMI 30.0-34.9) GERD (gastroesophageal reflux disease) Hypertension Impaired glucose tolerance Surgical History H/O left knee surgery History of shoulder surgery History of cataract surgery Family History Mother Heart attack Father No problems noted. Brother No problems noted. Sister No problems noted. Sister No problems noted. Brother Heart attack Son No problems noted. Son No problems noted. Daughter No problems noted. Social History Housing: House Alcohol intake: current Alcohol intake frequency: a few times a week Patient Tobacco Use Status: Former Tobacco user Tobacco use type: Cigarette Years Smoked: Quit 1998 e-Cigarette/Vaping Use: Never Used Second Hand Smoke Exposure: No Current occupational status: employed Cognitive needs: No Hearing needs: No Vision needs: Yes (reading glasses) Review of Systems Const All systems reviewed & are unremarkable except as noted in HPI and below Eyes Reports no additional complaints ENT Reports no additional complaints Card Reports no additional complaints Resp Reports no additional complaints GI Reports heartburn (GERD SYMPTOMS CONTROLLED WITH OMEPRAZOLE) Reports no additional complaints Musc Reports no additional complaints Skin/Breast Reports system reviewed and no additional complaints, except as documented Neuro Reports no additional complaints Psych Reports depression (Mild, controlled with minimal medication) Endo Reports no additional complaints Aller/Immun Reports no additional complaints Physical Exam Const General: healthy appearing (Except for overweight .), comfortable, no acute distress, alert and awake Orientation/consciousness: patient oriented x3 HEENT Head: Yes normal to inspection General nose exam: No nasal polyps present and No nasal discharge present Face and sinus: Yes sinuses nontender Mouth: oropharynx normal Throat: Yes posterior oropharynx normal Eyes General: appearance normal, both eyes and all related structures Neck Neck: Yes normal visual inspection, Yes no lymphadenopathy, Yes trachea midline and Yes no JVD Thyroid: Thyroid normal Chest Chest palpation & inspection: normal inspection of the chest, normal palpation of entire chest wall and no tenderness Resp Effort & Inspection: normal respiratory effort Auscultation: clear to auscultation bilaterally, no rhonchi and no wheezes Percussion: percussion normal Cardio Palpation: normal PMI Rate: regular rate Rhythm: regular rhythm Heart sounds: no gallops and no murmurs Peripheral pulses: Peripheral pulses 2+ throughout GI Palpation (GI): Soft to palpation, nontender, No hepatosplenomegaly present and no masses Auscultation: normal bowel sounds Back/Spine/Pelvis Thoracic/Lumbar Spine: thoracic and lumbar spine normal to inspection Skin General skin exam: no rashes or lesions noted and dry skin (RELATED TO PSORIASIS) Neuro General: patient oriented x3 and no focal motor deficits Cranial nerves: Yes CN's II-XII intact bilaterally Extrem General: Yes normal to inspection, Yes no clubbing, cyanosis or edema and Yes no calf tenderness Psych Appearance: grossly normal and well kempt Speech and movement: Normal speech and movement present Results Reviewed Results Reviewed: COMPLIANCE REPORT REVIEWED USED 30/30 NIGHTS, 100% AVERAGE USE IT PER NIGHT 6 HOURS 35 MINUTES. PRESSURE USED IS WELL WITHIN THE RANGE AND 95TH PERCENTILE 11.8 CM. NO SIGNIFICANT AIR. LEAK IS NOTED RESIDUAL AHI ONLY 1.0 Assessment & Plan Assessment & Plan (1) Obesity (BMI 30.0-34.9): Comment: PATIENT REMAINS MODERATELY OBESE. HAS PUT ON SOME WEIGHT DURING THE PAST 4 MONTHS, DUE TO STAYING IN THE HOUSE MOST OF THE TIME. DISCUSSED ABOUT NEED TO LOSE WEIGHT. Code(s): E66.9 - Obesity, unspecified Plan: MADE AWARE OF HIS WEIGHT GAIN. HE IS ENCOURAGED TO WALK DAILY, AND REDUCE INTAKE OF CARBOHYDRATES./CALORIES. (2) SILVERIO (obstructive sleep apnea): Comment: PATIENT USING CPAP REGULARLY, COMPLIANCE IS OK . AND HE IS DEFINITELY BENEFITING FROM THE USE OF CPAP. Code(s): G47.33 - Obstructive sleep apnea (adult) (pediatric) Plan: RE-INFORCED TO USE CPAP EVERY NIGHT . Order for new supplies is sent. Revisit Q 6 months Coding Level of Care Code Est Pt Level 3 (08237) Diagnoses Obesity (BMI 30.0-34.9) E66.9 SILVERIO (obstructive sleep apnea) G47.33
[2023-11-06 10:17] VITALS: BP 110/70; PULSE 67; O2SAT 96; BMI 33.5
== END 2023-11-06 10:33 | disposition home or self-care (01) ==
PROVIDERS: PCP Internal Medicine; Visit Provider Internal Medicine
DX: E66.9 Obesity, unspecified (principal); G47.33 Obstructive sleep apnea (adult) (pediatric)
CPT/HCPCS: 99213

== ENCOUNTER → 2023-11-06 10:11 | Outpatient (BNVA) | payer OTHER, SELFPAY | PROVIDERS: PCP Internal Medicine; Visit Provider Internal Medicine | DX: G47.33 Obstructive sleep apnea (adult) (pediatric) (principal); E66.9 Obesity, unspecified; Z68.33 Body mass index [BMI] 33.0-33.9, adult | CPT/HCPCS: 99212 ==

== ENCOUNTER 2023-12-17 09:42 | Outpatient (AMB) | payer OTHER, SELFPAY ==
[2023-12-17 10:12] VITALS: BP 130/82; PULSE 65; O2SAT 98; BMI 33.5
--- NOTE | 2023-12-17 10:12 | MHC.PC.OV ---
Vital Signs 12/17/23 10:12 Height 6 ft Weight 247 lb BMI 33.5 BP 130/82 Blood Pressure Location Lt brachial Position Sitting Pulse 65 Pulse Source Pulse Oximeter Pulse Oximetry (%) 98 Oxygen Delivery Method Room Air Intake Visit Reasons: Hypertension Allergies clindamycin Adverse Reaction (Verified 12/17/23 10:12) Anaphylaxis Tobacco use date assessed: 12/17/23 Dental Screening Dental Screen Date: 12/17/23 Did you have a dental visit in the last 12 months?: Yes Did you have a dental problem in the last 6 months where you did not have access to dental care?: No Was dental information given to patient?: Patient has dentist HPI Hypertension HPI Details 63-year-old obese male with impaired glucose tolerance hypertension GERD obstructive sleep apnea hypercholesterolemia generalized anxiety disorder and insomnia last seen in June 2023. Patient's colonoscopy was done in August 2021 having tubular adenoma. Review of the notes patient follows up with Pulmonary October 2023 for the sleep apnea patient had a good compliance with the CPAP patient had blood work done with an elevated liver function test ultrasound of the liver done diagnosis of hepatic steatosis. years of having ANDREWS R temporal area- has had a scan and is negative, states has been faithful with CPAP, sleeping good, QD takes advil or tylenol. Patient also complains of bilateral shoulder pain did have surgery done by before and would like to have the Orthopedics to see them again. Also complains of frequency but not nocturia discussed on doing ultrasound but will have the urinalysis done 1st. [facility] Medical History LFT elevation SILVERIO (obstructive sleep apnea) Obesity (BMI 30.0-34.9) GERD (gastroesophageal reflux disease) Hypertension Impaired glucose tolerance Surgical History H/O left knee surgery History of shoulder surgery History of cataract surgery Family History Mother Heart attack Father No problems noted. Brother No problems noted. Sister No problems noted. Sister No problems noted. Brother Heart attack Son No problems noted. Son No problems noted. Daughter No problems noted. Social History Housing: House Alcohol intake: current Alcohol intake frequency: a few times a week Patient Tobacco Use Status: Former Tobacco user Tobacco use type: Cigarette Years Smoked: Quit 1998 e-Cigarette/Vaping Use: Never Used Second Hand Smoke Exposure: No Current occupational status: employed Cognitive needs: No Hearing needs: No Vision needs: Yes (reading glasses) Questionnaire PHQ-9 Over the last 2 weeks, how often have you been bothered by any of the following problems? 1. Little interest or pleasure in doing things: more than half the days 2. Feeling down, depressed, or hopeless: more than half the days 3. Trouble falling or staying asleep, or sleeping too much: more than half the days 4. Feeling tired or having little energy: more than half the days 5. Poor appetite or overeating: not at all 6. Feeling bad about yourself - or that you are a failure or have let yourself or your family down: not at all 7. Trouble concentrating on things, such as reading the newspaper or watching television: not at all 8. Moving or speaking so slowly that other people could have noticed. Or the opposite - being so fidgety or restless that you have been moving around a lot more than usual: not at all 9. Thoughts that you would be better off or of hurting yourself in some way: not at all Total score: 8 Depression Screening Interpretation: Positive Depression Screening Done: Yes 49570 - PHQ-9 Billing: Yes Source: Developed by Drs. Dayron Osborne, Lety Higgins, Ronald Pacheco and colleagues, with an educational joya from [employer]. Thrive Questionnaire Date Thrive assessed: 12/17/23 I am a: Patient What is your living situation today?: I have a steady place to live Within the past 12 months, did the food you bought not last and you didn't have the money to get more?: Never true Within the past 12 months, did you worry whether your food would run out before you got money to buy more?: Never true Do you have trouble paying for medicines?: No Do you have trouble getting transportation to medical appointments?: No Do you have trouble paying your heating and electricity bill?: No Do you have trouble taking care of your child, family member or friend?: No Do you have trouble with day-to-day activities such as bathing, preparing meals, shopping, managing finances, etc.?: No Are you currently unemployed and looking for a job?: No Are you interested in more education?: No Currently or been in a relationship where the following occur: no concerns reported THRIVE Score: 0 AUDIT C Alcohol Use Questionnaire (AUDIT-C) 1. How often do you have a drink containing alcohol?: 4 or more times a week 2. How many drinks containing alcohol do you have on a typical day when you are drinking?: 1 or 2 3. How often do you have six or more drinks on one occasion?: Never Total Score: 4 YADIRA-7 AMB Questionnaire YADIRA-7 Date YADIRA - 7 assessed: 12/17/23 Feeling nervous, anxious, or on edge: 1 = Several days Not being able to stop or control worryin = Not at all Worrying too much about different things: 0 = Not at all Trouble relaxin = Not at all Being so restless that it is hard to sit still: 0 = Not at all Becoming easily annoyed or irritable: 0 = Not at all Feeling afraid as if something awful might happen: 0 = Not at all Total YADIRA-7 score (0-4 normal; 5-9 mild; 10-14 moderate; 15-21 severe): 1 Source: Developed by Drs. Dayron Osborne, Lety Higgins, Ronald Pacheco and colleagues, with an educational joya from [employer]. Physical exam (Primary Care) Vital Signs: Last Vital Signs Pulse 65 12/17/23 10:12 BP 130/82 12/17/23 10:12 Pulse Ox 98 12/17/23 10:12 Oxygen Delivery Method Room Air 12/17/23 10:12 BMI result Body Mass Index 33.5 Tobacco/Smoking Status: Tobacco use Status Tobacco use date assessed 12/17/23 12/17/23 10:18 Patient Tobacco Use Status Former Tobacco user 12/17/23 10:18 Tobacco use type Cigarette 12/17/23 10:18 e-Cigarette/Vaping Use Never Used 12/17/23 10:18 PHQ-9: PHQ-9 Score PHQ-9: Total score 8 12/17/23 10:18 Depression Screening Interpretation: Positive Thrive Assessment: Date of Thrive Assessment Date Thrive assessed 12/17/23 12/17/23 10:18 Currently or been in a relationship where the following occur: no concerns reported Const General: alert; No acute distress Eyes Conjunctivae: conjunctivae normal Resp Auscultation: clear to auscultation bilaterally Cardio Rate: regular rate Rhythm: regular rhythm GI Inspection: Yes normal to inspection Extrem General: Yes normal to inspection and No edema Assessment and Plan Assessment & Plan (1) Hypertension: Code(s): I10 - Essential (primary) hypertension Qualifiers: Hypertension type: essential hypertension Qualified Code(s): I10 - Essential (primary) hypertension Plan: Continue with blood pressure medication. Decrease salt intake and exercise patient takes diltiazem and metoprolol (2) Impaired glucose tolerance: Code(s): R73.02 - Impaired glucose tolerance (oral) Plan: Decrease the amount of carbohydrate intake, pasta, bread, rice and potatoes are all sugar and that is aside from all the sweet stuff, remember that fruits are good but they are Sweet also. (3) Obesity (BMI 30.0-34.9): Comment: PATIENT REMAINS MODERATELY OBESE. HAS PUT ON SOME WEIGHT DURING THE PAST 4 MONTHS, DUE TO STAYING IN THE HOUSE MOST OF THE TIME. DISCUSSED ABOUT NEED TO LOSE WEIGHT. Code(s): E66.9 - Obesity, unspecified Plan: Diet and exercise (4) SILVERIO (obstructive sleep apnea): Comment: PATIENT USING CPAP REGULARLY, COMPLIANCE IS OK . AND HE IS DEFINITELY BENEFITING FROM THE USE OF CPAP. Code(s): G47.33 - Obstructive sleep apnea (adult) (pediatric) Plan: Patient uses the CPAP more than 6 hours a night and benefits from this. (5) Hypercholesterolemia: Code(s): E78.00 - Pure hypercholesterolemia, unspecified Plan: Avoid fried foods, chicken skin, eggs, butter margarine, pastries and meat. Be it pork or beef they have a lot of cholesterol LDL goal of less than 130 and triglyceride of less than 150 June 2023 last blood work wheeled atorvastatin 20 mg once a day (6) Fatty liver: Comment: 07/2023 Code(s): K76.0 - Fatty (change of) liver, not elsewhere classified Plan: Low-fat diet and exercise (7) Generalized anxiety disorder: Comment: [facility]) Code(s): F41.1 - Generalized anxiety disorder Plan: Continue with Bue per prior on and lorazepam. (8) Headache: Code(s): R51.9 - Headache, unspecified Plan: Concern that the headaches may be part of the problem sleep apnea although 1 CPAP. Referral to neurology done. Will try on migraine medication. (9) Shoulder pain, right: Code(s): M25.511 - Pain in right shoulder Plan: Referral to orthopedics done. (10) Frequency of micturition: Code(s): R35.0 - Frequency of micturition Plan: Ordered for urinalysis as well as ultrasound of the bladder. Orders: Orders AMB Urinalysis Automated Today R35.0 - Frequency of micturition, Z13.9 - Encounter for screening, unspecified US bladder Today R35.0 - Frequency of micturition Referrals Orthopedics Referral M25.511 - Pain in right shoulder Neurology Referral R51.9 - Headache, unspecified Medications: New sumatriptan succinate (Imitrex) do not exceed 4 doses per 24 hrs 50 mg PO .QD PRN 10 tabs 3RF migraine headache R51.9 - Headache, unspecified Coding Level of Care Code Est Pt Level 4 (23476) Diagnoses Essential hypertension I10 Hypertension type: essential hypertension Impaired glucose tolerance R73.02 Obesity (BMI 30.0-34.9) E66.9 SILVERIO (obstructive sleep apnea) G47.33 Hypercholesterolemia E78.00 Fatty liver K76.0 Generalized anxiety disorder F41.1 Headache R51.9 Shoulder pain, right M25.511 Frequency of micturition R35.0
== END 2023-12-17 10:49 | disposition home or self-care (01) ==
PROVIDERS: PCP Internal Medicine; Visit Provider Internal Medicine
DX: I10 Essential (primary) hypertension (principal); R73.02 Impaired glucose tolerance (oral); E66.9 Obesity, unspecified; Z68.33 Body mass index [BMI] 33.0-33.9, adult; G47.33 Obstructive sleep apnea (adult) (pediatric); R35.0 Frequency of micturition; E78.00 Pure hypercholesterolemia, unspecified; K76.0 Fatty (change of) liver, not elsewhere classified; F41.1 Generalized anxiety disorder; R51.9 Headache, unspecified; M25.511 Pain in right shoulder
CPT/HCPCS: 81003; 99214

== ENCOUNTER 2024-01-01 11:20 | Outpatient (REF) | payer OTHER, SELFPAY ==
--- NOTE | ~2024-01-01 | US_ITS ---
EXAMINATION: US PELVIS LIMITED (BLADDER) CLINICAL INFORMATION: Frequency of micturition. COMPARISON: None available. TECHNIQUE: Real-time imaging of the bladder. FINDINGS: BLADDER: Moderately distended. Bladder wall appears diffusely thickened with mild irregularity, although this could partially be attributable to incomplete distention. Bilateral ureteral jets are demonstrated. Prevoid bladder volume is 171 mL. Postvoid bladder volume is 20.6 mL. Prostate volume 18.7 mL. US/US bladder IMPRESSION: 1. Bladder wall appears diffusely thickened with mild irregularity, although this could partially be attributable to incomplete distention. Correlation with clinical exam and urinalysis recommended. 2. Prostate volume 18.7 mL.
== END 2024-01-01 11:21 | disposition home or self-care (01) ==
LOC: HO.US 11:20
PROVIDERS: PCP Internal Medicine; Visit Provider Internal Medicine
DX: R35.0 Frequency of micturition (principal)
CPT/HCPCS: 76857

== ENCOUNTER 2024-01-17 12:24 | Outpatient (REF) | payer OTHER, SELFPAY | END 2024-01-17 12:25 | disposition home or self-care (01) | LOC: HO.HOSX 12:24 | PROVIDERS: Visit Provider Physician Assistant | DX: Z13.89 Encounter for screening for other disorder (principal) ==

== ENCOUNTER 2024-01-24 08:17 | Outpatient (REF) | payer OTHER, SELFPAY ==
--- NOTE | ~2024-01-24 | XR_ITS ---
EXAMINATION: XR SHOULDER, RIGHT CLINICAL INFORMATION: Pain right shoulder COMPARISON: None available. TECHNIQUE: 3 views of the right shoulder of the right shoulder. FINDINGS: The bones and soft tissues are normal. No fracture. Glenohumeral and acromioclavicular alignment is anatomic with normal joint space. No abnormal soft tissue calcifications. XR/XR shoulder RT min 2V IMPRESSION: Normal right shoulder.
== END 2024-01-24 08:18 | disposition home or self-care (01) ==
LOC: HO.HOSX 08:17
PROVIDERS: Visit Provider Physician Assistant
DX: M25.511 Pain in right shoulder (principal); M77.8 Other enthesopathies, not elsewhere classified
CPT/HCPCS: 73030; 99202

== ENCOUNTER 2024-01-24 11:13 | Outpatient (AMB) | payer OTHER, SELFPAY ==
[2024-01-24 11:39] VITALS: BMI 33.5
--- NOTE | 2024-01-24 11:39 | A.OFFVIS_ITS ---
Vital Signs 01/24/24 11:39 Height 6 ft Weight 247 lb BMI 33.5 Intake Visit Reasons: N/P rt shoulder pain Intake Note: Lucille 63 year old right hand dominant male who presents today for as new patient for an evaluation for his right shoulder pain. Patient reports left shoulder with Dr. Vega over 5 years ago. States that he has always had discomfort in his shoulder however recently his pain has increased. He has pain with ROM. States he does not take any OTC pain relievers for his pain. Allergies clindamycin Adverse Reaction (Verified 01/24/24 11:40) Anaphylaxis Medication List - Last Reconciled 01/24/24 by Gretchen Morales PA-C aspirin (Adult Low Dose Aspirin) 81 mg PO DAILY atorvastatin 20 mg PO DAILY 90 days bupropion HCl XL 450 mg PO DAILY calcium citrate 250 mg PO DAILY cholecalciferol (vitamin D3) 25 mcg PO DAILY diltiazem HCl CD TAKE 1 CAPSULE BY MOUTH DAILY folic acid 0.4 mg PO DAILY lorazepam 1 mg PO DAILY PRN metoprolol succinate ER 50 mg PO DAILY 90 days omeprazole 40 mg PO BID pyridoxine (vitamin B6) 50 mg PO DAILY quetiapine (Seroquel) 50 mg PO BEDTIME sumatriptan succinate (Imitrex) 50 mg PO .QD PRN HPI HPI N/P rt shoulder pain: Details: 63-year-old right hand dominant male who presents to the office today for evaluation of right shoulder pain. He states he has right shoulder pain and discomfort which has been worse recently. He currently states he has intermittent pain in his shoulder which is worse with ROM, heavy lifting and overhead reaching. He does not take any OTC pain relievers for his pain. He had a left shoulder with Dr. Vega about 5 years ago. He is retired ex-. [facility] Medical History LFT elevation SILVERIO (obstructive sleep apnea) Obesity (BMI 30.0-34.9) GERD (gastroesophageal reflux disease) Hypertension Impaired glucose tolerance Surgical History H/O left knee surgery History of shoulder surgery History of cataract surgery Family History Mother Heart attack Father No problems noted. Brother No problems noted. Sister No problems noted. Sister No problems noted. Brother Heart attack Son No problems noted. Son No problems noted. Daughter No problems noted. Social History (Updated 01/24/24 @ 11:45 by FILIBERTO Tripp) Housing: House Alcohol intake: current Alcohol intake frequency: a few times a week Patient Tobacco Use Status: Former Tobacco user Tobacco use type: Cigarette Years Smoked: Quit 1998 e-Cigarette/Vaping Use: Never Used Second Hand Smoke Exposure: No Current occupational status: retired Current occupation: right hand dominant Cognitive needs: No Hearing needs: No Vision needs: Yes (reading glasses) Review of Systems Const All systems reviewed & are unremarkable except as noted in HPI and below Physical Exam Vital Signs: BMI result Body Mass Index 33.5 Const General: cooperative, healthy appearing, comfortable, no acute distress, well developed and alert Orientation/consciousness: patient oriented x3 HEENT Head: Yes normal to inspection, Yes normocephalic and Yes atraumatic Eyes General: appearance normal, both eyes and all related structures Resp Effort & Inspection: normal respiratory effort and able to speak in complete sentences Cardio Rate: regular rate Peripheral pulses: Peripheral pulses 2+ throughout GI Palpation (GI): Soft to palpation Skin Lesions: no lesions Rashes: no rashes Neuro General: patient oriented x3 Extrem Other: Right shoulder normal to inspection. Tenderness over the bicipital groove and along the deltoid region of the shoulder. Forward flexion to 175, external rotation to 90, internal rotation to S1. Significant pain and weakness with RTC strength testing. Positive O'Briens. NVI. Results Reviewed Results Reviewed: Xrays were obtained in the office today and personally reviewed by me of the right shoulder are negative for acute fracture or dislocation Assessment & Plan Assessment & Plan (1) Tendinitis of right rotator cuff: Code(s): M75.81 - Other shoulder lesions, right shoulder Category: Medical Plan Based on significant pain and weakness on exam, an MRI of the right shoulder has been ordered to further evaluate the integrity of RTC. Once the scan is complete, he will see me back with the results. Orders: Orders MR shoulder RT wo con 01/24/24 M77.8 - Other enthesopathies, not elsewhere cla ssified XR shoulder RT min 2V 01/24/24 M25.511 - Pain in right shoulder Patient Instructions: Scribed for Gretchen Morales PA-C, by He Rojo, director of medical staff services, on 01/24/2024 at 11:15 AM Gretchen MAYORGA PA-C, have personally reviewed and agree with the information entered by the scribe.
== END 2024-01-24 12:01 | disposition home or self-care (01) ==
PROVIDERS: PCP Internal Medicine; Visit Provider Physician Assistant
DX: M75.81 Other shoulder lesions, right shoulder (principal)
CPT/HCPCS: 99203; 99213

== ENCOUNTER 2024-03-03 09:52 | Outpatient (AMB) | payer OTHER, SELFPAY ==
--- NOTE | 2024-03-03 09:58 | MHC.OFFVIS ---
Intake Visit Reasons: frequency, bladder wall thickening Intake Note: New Patient presents today for initial visit to establish treatment for : Urinary Frequency Urology Medications: None Allergies to Antibiotic: Clindamycin Blood Thinner: ASA PVR: 77ml's Rabies Inspector Required: No Accompanied by: Self / Same As Patient Allergies clindamycin Adverse Reaction (Verified 03/03/24 10:35) Anaphylaxis Medication List - Last Reconciled 03/03/24 by ALVARADO ArguelloP- aspirin (Adult Low Dose Aspirin) 81 mg PO DAILY atorvastatin 20 mg PO DAILY 90 days bupropion HCl XL 450 mg PO DAILY calcium citrate 250 mg PO DAILY cholecalciferol (vitamin D3) 25 mcg PO DAILY diltiazem HCl CD TAKE 1 CAPSULE BY MOUTH DAILY doxycycline hyclate 100 mg PO BID folic acid 0.4 mg PO DAILY lorazepam 1 mg PO DAILY PRN metoprolol succinate ER 50 mg PO DAILY 90 days omeprazole 40 mg PO BID pyridoxine (vitamin B6) 50 mg PO DAILY quetiapine (Seroquel) 50 mg PO BEDTIME sumatriptan succinate (Imitrex) 50 mg PO .QD PRN HPI Comments Details: Marquez is a very pleasant 63-year-old male patient of Dr. Peraza. He has a past medical history of generalized anxiety disorder, obstructive sleep apnea uses CPAP machine, obesity, GERD, hypertension and impaired glucose tolerance. He presents to the office today as a new patient for bladder wall thickening. In discussion with the patient today reports having followed up with his PCP for urinary frequency has been experiencing over the last 6-8 months at which time a bladder ultrasound was ordered for further assessment evaluation. These results reviewed with the patient today. He the bladder is moderately distended. Bladder wall appears diffusely thickened with mild irregularity, although this could partially be attributable to incomplete distention. Bilateral ureteral jets are demonstrated. Prevoid bladder volume is approximately 170 mL. Postvoid bladder volume is approximately 20mls. Prostate volume is approximately 19 mL. He discusses seeking emergency room care at [facility] approximately 1 week ago and has since been diagnosed with Lyme disease. He is currently on doxycycline for treatment. In office urinalysis results reviewed with the patient today. 2+ microscopic hematuria noted. When asked he does reports previous smoking history however quit approximately 25 years ago. He reports smoking for approximately 20 years 1 pack per day. PVR 77 mL. Discussed potential causes for microscopic hematuria may/can include but are not limited to kidney stones, cancer in the urinary tract, BPH, kidney stone disease or inflammatory conditions of the urinary tract. Discussed at length potential causes for lower urinary tract symptoms patient is experiencing. In review of patient's chart it appears PSA 06/29 0.5. He otherwise offers no other issues or concerns at this time. [facility] Medical History LFT elevation SILVERIO (obstructive sleep apnea) Obesity (BMI 30.0-34.9) GERD (gastroesophageal reflux disease) Hypertension Impaired glucose tolerance Surgical History H/O left knee surgery History of shoulder surgery History of cataract surgery Family History Mother Heart attack Father No problems noted. Brother No problems noted. Sister No problems noted. Sister No problems noted. Brother Heart attack Son No problems noted. Son No problems noted. Daughter No problems noted. Social History Housing: House Alcohol intake: current Alcohol intake frequency: a few times a week Patient Tobacco Use Status: Former Tobacco user Tobacco use type: Cigarette Years Smoked: Quit 1998 e-Cigarette/Vaping Use: Never Used Second Hand Smoke Exposure: No Current occupational status: retired Current occupation: right hand dominant Cognitive needs: No Hearing needs: No Vision needs: Yes (reading glasses) Review of Systems Const Reports as per HPI Eyes Reports no additional complaints ENT Reports no additional complaints Card Reports as per HPI Resp Reports as per HPI GI Reports as per HPI Reports as per HPI Musc Details: Reports joint pains, neck stiffness, and headaches; however recently diagnosed with Lyme disease and on doxycycline. Neuro Reports as per HPI Psych Reports as per HPI Endo Reports no additional complaints Physical Exam Const General: cooperative, healthy appearing, comfortable, no acute distress, well developed, alert and awake Nutritional Appearance: overweight Orientation/consciousness: patient oriented x3 Limitations: no limitations HEENT Head: Yes normal to inspection, Yes normocephalic and Yes atraumatic Ears: hearing grossly normal bilaterally Eyes General: appearance normal, both eyes and all related structures Neck Neck: Yes normal visual inspection and Yes trachea midline Chest Chest palpation & inspection: normal inspection of the chest Resp Effort & Inspection: normal respiratory effort and able to speak in complete sentences Cardio Rate: regular rate GI Inspection: Yes normal to inspection General: Yes no CVA tenderness Back/Spine/Pelvis Back: no CVA tenderness Skin General skin exam: no rashes or lesions noted Neuro General: patient oriented x3 Extrem General: Yes normal to inspection Psych Appearance: grossly normal and well kempt Mental Status: mental status grossly normal Speech and movement: Normal speech and movement present and Clear speech present Affect: normal affect Attitude: cooperative Thought process: Normal thought process present Thought content: Normal thought content present Insight: Fair insight present (Psych) Judgement: Fair judgement present (Psych) Office Procedures Post Void Residual Post Residual Void Post Void Residual (PVR): 77 21071-[id number] Void Residual by ultrasound Results AMB Urinalysis, Automated UA Leukoctes 0 Susanna/uL Last Edit by [employer] on 03/03/24 10:16 UA Nitrite Negative Last Edit by [employer] on 03/03/24 10:16 UA Urobilinogen 0.2 mg/dL Last Edit by [employer] on 03/03/24 10:16 UA Protein 15 mg/dL Last Edit by [employer] on 03/03/24 10:16 UA pH 6.0 Last Edit by [employer] on 03/03/24 10:16 UA Blood 80 Deepak/uL Last Edit by [employer] on 03/03/24 10:16 UA Specific [place] 1.020 Last Edit by [employer] on 03/03/24 10:16 UA Ketone Negative Last Edit by [employer] on 03/03/24 10:16 UA Bilirubin 1 mg/dL Last Edit by [employer] on 03/03/24 10:16 UA Glucose 0 mg/dL Last Edit by [employer] on 03/03/24 10:16 Results Reviewed Results Reviewed: Laboratory Last Values Urine pH (Auto) 6.0 03/03/24 10:00 Specific [place] (Auto) 1.020 03/03/24 10:00 Urine Protein (Auto) 15 mg/dL 03/03/24 10:00 Glucose (UA)(Auto) 0 mg/dL 03/03/24 10:00 Urine Ketones (Auto) Negative 03/03/24 10:00 Urine Blood (Auto) 80 Deepak/uL 03/03/24 10:00 Urine Nitrite (Auto) Negative 03/03/24 10:00 Urine Bilirubin (Auto) 1 mg/dL 03/03/24 10:00 Urine Urobilinogen (Auto) 0.2 mg/dL 03/03/24 10:00 Leukocyte Esterase (Auto) 0 Susanna/uL 03/03/24 10:00 Date of Service: 01/01/24 EXAMINATION: US PELVIS LIMITED (BLADDER) FINDINGS: BLADDER: Moderately distended. Bladder wall appears diffusely thickened with mild irregularity, although this could partially be attributable to incomplete distention. Bilateral ureteral jets are demonstrated. Prevoid bladder volume is 171 mL. Postvoid bladder volume is 20.6 mL. Prostate volume 18.7 mL. IMPRESSION: 1. Bladder wall appears diffusely thickened with mild irregularity, although this could partially be attributable to incomplete distention. Correlation with clinical exam and urinalysis recommended. 2. Prostate volume 18.7 mL. Assessment & Plan Assessment & Plan (1) Frequency of micturition: Code(s): R35.0 - Frequency of micturition Category: Medical (2) Bladder wall thickening: Code(s): N32.89 - Other specified disorders of bladder Category: Medical (3) Microscopic hematuria: Code(s): R31.29 - Other microscopic hematuria Category: Medical Plan In office urinalysis results reviewed with the patient today; as noted above; will send for urine cytology. PVR 77 mL. Discussed at length potential causes of microscopic hematuria; as noted above. Discussed further treatment options of microscopic hematuria to include CT urogram and in office cystoscopy versus surveillance monitoring; risks and benefits of these interventions were discussed at length; will continue with surveillance monitoring at this time per patient request. Recent bladder ultrasound results reviewed with the patient today; as noted above. Discussed at length potential causes for lower urinary tract symptoms patient is experiencing. Start Flomax as discussed and prescribed. Discussed attempting to sit when voiding to relax pelvis. Discussed possible near future in office cystoscopy for further assessment evaluation. Discussed bladder triggers/irritants. Follow-up in 1-3 months with PVR; or sooner with any issues, concerns, and or questions. Orders: Orders Urine Cytology Today R35.0 - Frequency of micturition, Z13.9 - Encounter for screening, unspecified AMB Urinalysis Automated Today Z13.9 - Encounter for screening, unspecified AMB Post Void Residual by ultrasound Today R35.0 - Frequency of micturition Patient Instructions: The patient had an opportunity to ask questions regarding the treatment plan. All questions were answered. Physical exam, labs, and imaging were discussed and reviewed in detail. As well as risks, benefits, and discussion of treatment choices. No major barriers to understanding were identified. The patient expressed understanding and agreement with the above treatment plan. The patient was made aware they should contact our office by phone for worsening of their current condition, the appearance of new symptoms, or with any questions or concerns. Compliance is encouraged with any medications and follow up testing that is ordered. It is a privilege to be allowed the opportunity to participate in? your urological care.? Again, if you have any questions or concerns If you have any questions or concerns please do not hesitate to contact me. The office is [phone]. This note is constructed using voice recognition software. While every effort has been made to ensure accuracy international logistics coordinator errors may have been included. Yours sincerely, SHARON Arguello Coding Level of Care Code New Pt Level 4 (68908) Diagnoses Frequency of micturition R35.0 Bladder wall thickening N32.89 Microscopic hematuria R31.29 CPT Codes Post Residual Void - PVR CPT Code: 73410-[id number] Void Residual by ultrasound ([id number])
== END 2024-03-03 10:32 | disposition home or self-care (01) ==
PROVIDERS: PCP Internal Medicine; Visit Provider Nurse Practitioner Family
DX: R35.0 Frequency of micturition (principal); N32.89 Other specified disorders of bladder; R31.29 Other microscopic hematuria; Z13.9 Encounter for screening, unspecified
CPT/HCPCS: 99204

== ENCOUNTER 2024-03-03 09:52 | Outpatient (REF) | payer OTHER, SELFPAY ==
[2024-03-03 16:25] LABS: Urine Cytology See Pathology rpt
== END 2024-03-03 09:53 | disposition home or self-care (01) ==
LOC: HO.LNP 09:52
PROVIDERS: PCP Internal Medicine; Visit Provider Nurse Practitioner Family
DX: R35.0 Frequency of micturition (principal); N32.89 Other specified disorders of bladder; R31.29 Other microscopic hematuria
CPT/HCPCS: 51798; 81003; 88112; 99202

== ENCOUNTER 2024-03-16 15:41 | Outpatient (AMB) | payer OTHER, SELFPAY ==
--- NOTE | 2024-03-16 15:41 | MHC.PC.OV ---
Vital Signs 03/16/24 15:42 Height 6 ft Weight 237 lb BMI 32.1 BP 130/74 Blood Pressure Location Lt brachial Position Sitting Pulse 71 Pulse Source Pulse Oximeter Pulse Oximetry (%) 97 Oxygen Delivery Method Room Air Intake Visit Reasons: Frequency, headaches, fatty liver Human Machine Interface Engineer Required: No Allergies clindamycin Adverse Reaction (Verified 03/16/24 15:42) Anaphylaxis Tobacco use date assessed: 03/16/24 Dental Screening Dental Screen Date: 12/17/23 HPI Frequency, headaches, fatty liver HPI Details 63-year-old obese male(noted 10 lb weight loss) with hypertension impaired glucose tolerance obstructive sleep apnea hypercholesterolemia generalized anxiety disorder coming in for follow-up. Last seen in 12/25/2023 patient was sent to Neurology. Patient is up-to-date with colonoscopy 08/26/2021 5 years. Review of the notes [facility] fever 02/24/2024 diagnosis placed his bad headache also has had a schedule with the urologist having frequency with hematuria ultrasound requested and cytology. Reviewed also noted right shoulder pain seen Orthopedics tendonitis of right rotator cuff MRI requested. Lyme disease.- states no known tick bite PFSH Medical History LFT elevation SILVERIO (obstructive sleep apnea) Obesity (BMI 30.0-34.9) GERD (gastroesophageal reflux disease) Hypertension Impaired glucose tolerance Surgical History H/O left knee surgery History of shoulder surgery History of cataract surgery Family History Mother Heart attack Father No problems noted. Brother No problems noted. Sister No problems noted. Sister No problems noted. Brother Heart attack Son No problems noted. Son No problems noted. Daughter No problems noted. Social History Housing: House Alcohol intake: current Alcohol intake frequency: a few times a week Patient Tobacco Use Status: Former Tobacco user Tobacco use type: Cigarette Years Smoked: Quit 1998 e-Cigarette/Vaping Use: Never Used Second Hand Smoke Exposure: No Current occupational status: retired Current occupation: right hand dominant Cognitive needs: No Hearing needs: No Vision needs: Yes (reading glasses) Questionnaire Thrive Questionnaire Date Thrive assessed: 12/17/23 I am a: Patient What is your living situation today?: I have a steady place to live Within the past 12 months, did the food you bought not last and you didn't have the money to get more?: Never true Within the past 12 months, did you worry whether your food would run out before you got money to buy more?: Never true Do you have trouble paying for medicines?: No Do you have trouble getting transportation to medical appointments?: No Do you have trouble paying your heating and electricity bill?: No Do you have trouble taking care of your child, family member or friend?: No Do you have trouble with day-to-day activities such as bathing, preparing meals, shopping, managing finances, etc.?: No Are you currently unemployed and looking for a job?: No Are you interested in more education?: No Currently or been in a relationship where the following occur: no concerns reported THRIVE Score: 0 AUDIT C Alcohol Use Questionnaire (AUDIT-C) 1. How often do you have a drink containing alcohol?: 4 or more times a week 2. How many drinks containing alcohol do you have on a typical day when you are drinking?: 1 or 2 3. How often do you have six or more drinks on one occasion?: Never Total Score: 4 YADIRA-7 AMB Questionnaire YADIRA-7 Date YADIRA - 7 assessed: 12/17/23 Source: Developed by Drs. Dayron Osborne, Lety Higgins, Ronald Pacheco and colleagues, with an educational joya from [employer]. Physical exam (Primary Care) Vital Signs: Last Vital Signs Pulse 71 03/16/24 15:42 BP 130/74 03/16/24 15:42 Pulse Ox 97 03/16/24 15:42 Oxygen Delivery Method Room Air 03/16/24 15:42 BMI result Body Mass Index 32.1 Tobacco/Smoking Status: Tobacco use Status Tobacco use date assessed 03/16/24 03/16/24 15:42 Patient Tobacco Use Status Former Tobacco user 03/16/24 15:42 Tobacco use type Cigarette 03/16/24 15:42 e-Cigarette/Vaping Use Never Used 03/16/24 15:42 Thrive Assessment: Date of Thrive Assessment Date Thrive assessed 12/17/23 03/16/24 15:42 Currently or been in a relationship where the following occur: no concerns reported Const General: alert; No acute distress Eyes Conjunctivae: conjunctivae normal Resp Auscultation: clear to auscultation bilaterally Cardio Rate: regular rate Rhythm: regular rhythm GI Inspection: Yes normal to inspection Extrem General: Yes normal to inspection and No edema Assessment and Plan Assessment & Plan (1) Microscopic hematuria: Code(s): R31.29 - Other microscopic hematuria Plan: Patient follows up with urology and had the cytology done negative results did order for another ultrasound. (2) SILVERIO (obstructive sleep apnea): Comment: PATIENT USING CPAP REGULARLY, COMPLIANCE IS OK . AND HE IS DEFINITELY BENEFITING FROM THE USE OF CPAP. Code(s): G47.33 - Obstructive sleep apnea (adult) (pediatric) Plan: Patient's continue using the CPAP more than 4 hours a night and benefits from this. (3) Obesity (BMI 30.0-34.9): Comment: PATIENT REMAINS MODERATELY OBESE. HAS PUT ON SOME WEIGHT DURING THE PAST 4 MONTHS, DUE TO STAYING IN THE HOUSE MOST OF THE TIME. DISCUSSED ABOUT NEED TO LOSE WEIGHT. Code(s): E66.9 - Obesity, unspecified Plan: Diet and exercise continue noted weight loss (4) Hypertension: Code(s): I10 - Essential (primary) hypertension Qualifiers: Hypertension type: essential hypertension Qualified Code(s): I10 - Essential (primary) hypertension Plan: Continue with blood pressure medication. Decrease salt intake and exercise on metoprolol 50 mg once a day (5) GERD (gastroesophageal reflux disease): Code(s): K21.9 - Gastro-esophageal reflux disease without esophagitis Qualifiers: Esophagitis presence: without esophagitis Qualified Code(s): K21.9 - Gastro-esophageal reflux disease without esophagitis Plan: Avoid the foods that causes that usually spicy foods, tomato products, juices, coffee, soda and foods that your sensitive to. After eating do not lie down, allow 3-4 hours before in lie down. And keep the head of bed above 30 degrees to avoid the acid from going up. (6) Lyme disease: Code(s): A69.20 - Lyme disease, unspecified Plan: PAtient was treated for Lyme with 3 weeks of Doxycycline and patient is feeling better- finishing the last week of antibiotics Coding Level of Care Code Est Pt Level 4 (12602) Diagnoses Microscopic hematuria R31.29 SILVERIO (obstructive sleep apnea) G47.33 Obesity (BMI 30.0-34.9) E66.9 Essential hypertension I10 Hypertension type: essential hypertension Gastroesophageal reflux disease without esophagitis K21.9 Esophagitis presence: without esophagitis Lyme disease A69.20
[2024-03-16 15:42] VITALS: BP 130/74; PULSE 71; O2SAT 97; BMI 32.1
== END 2024-03-16 16:41 | disposition home or self-care (01) ==
PROVIDERS: PCP Internal Medicine; Visit Provider Internal Medicine
DX: I10 Essential (primary) hypertension (principal); R31.29 Other microscopic hematuria; G47.33 Obstructive sleep apnea (adult) (pediatric); Z68.32 Body mass index [BMI] 32.0-32.9, adult; E66.9 Obesity, unspecified; K21.9 Gastro-esophageal reflux disease without esophagitis; A69.20 Lyme disease, unspecified
CPT/HCPCS: 99214

== ENCOUNTER 2024-03-17 08:55 | Outpatient (REF) | payer OTHER, SELFPAY ==
--- NOTE | ~2024-03-17 | MR_ITS ---
EXAMINATION: MR SHOULDER WITHOUT CONTRAST, RIGHT CLINICAL INFORMATION: Right shoulder pain and decreased range of motion. Prior arthroscopy 10 years ago. COMPARISON: Outside right shoulder MRI dated 05/27/2017. Right shoulder radiographs dated 01/24/2024. TECHNIQUE: MRI of the shoulder without contrast was performed on a high-field scanner. FINDINGS: ROTATOR CUFF: Minimal distal supraspinatus tendinosis, unchanged. Moderate subscapularis tendinosis with distal articular surface partial tearing measuring up to 3.6 cm in ML dimension, increased in prominence when compared to the prior examination. There are a few thin bursal surface tendon fibers remaining intact. No muscle atrophy or fatty infiltration. BICEPS: Medial dislocation of the proximal long head biceps tendon through the subscapularis tendon tear. There is proximal tendon heterogeneity with flattening as it drapes of the lesser tuberosity, consistent with tendinosis and longitudinal partial tearing. Findings are slightly increased in prominence when compared to the prior examination. No full-thickness transverse tendon tear or tendon retraction. CORACOACROMIAL ARCH: The undersurface of the acromion is curved with no subacromial spur. Mild acromioclavicular osteoarthritis, unchanged. LABRUM/CAPSULE: Linear fluid signal within the undersurface of the superior, posterosuperior, posterior, and posteroinferior labrum, increased in prominence when compared to the prior examination and consistent with undersurface tearing. Posterior parameniscal cyst measuring up to 1.7 cm in ML dimension, new when compared to the prior examination. Intact inferior joint capsule. GLENOHUMERAL JOINT/MARROW: Mild chronic posterior subluxation of the humeral head with posterior glenoid articular cartilage thinning and areas of full thickness articular cartilage loss as well as subchondral cystic change and marginal osteophytes. Findings are slightly progressed when compared to the prior examination. Superior humeral head articular cartilage thinning with areas of loss, progressed when compared to the prior examination. Trace joint effusion. MR/MR shoulder RT wo con IMPRESSION: 1. Moderate subscapularis tendinosis with distal articular surface partial tearing, increased in prominence when compared to the prior examination. Minimal distal supraspinatus tendinosis, unchanged. 2. Medial dislocation of the proximal long head biceps tendon through the subscapularis tendon tear. Proximal long head biceps tendinosis and longitudinal partial tearing, slightly increased when compared to the prior examination. 3. Nondisplaced undersurface tearing of the superior, posterosuperior, posterior, and posteroinferior labrum, increased in prominence when compared to the prior examination. New posterior parameniscal cyst measuring up to 1.7 cm. 4. Mild chronic posterior subluxation of the humeral head with [id number] glenohumeral osteoarthritis, slightly progressed when compared to the prior examination. Trace joint effusion.
== END 2024-03-17 08:56 | disposition home or self-care (01) ==
LOC: HO.MRI 08:55
PROVIDERS: PCP Internal Medicine; Visit Provider Physician Assistant
DX: M77.8 Other enthesopathies, not elsewhere classified (principal)
CPT/HCPCS: 73221

== ENCOUNTER 2024-05-05 09:25 | Outpatient (AMB) | payer OTHER, SELFPAY ==
[2024-05-05 09:33] VITALS: BP 108/80; PULSE 67; O2SAT 95; BMI 32.4
--- NOTE | 2024-05-05 09:33 | MHC.OFFVIS ---
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 Allergies clindamycin Adverse Reaction (Verified 05/05/24 09:38) Anaphylaxis Medication List - Last Reconciled 05/05/24 by Alfredito Rivas MD aspirin (Adult Low Dose Aspirin) 81 mg PO DAILY atorvastatin 20 mg PO DAILY 90 days bupropion HCl XL 450 mg PO DAILY calcium citrate 250 mg PO DAILY cholecalciferol (vitamin D3) 25 mcg PO DAILY diltiazem HCl CD TAKE 1 CAPSULE BY MOUTH DAILY folic acid 0.4 mg PO DAILY lorazepam 1 mg PO DAILY PRN metoprolol succinate ER 50 mg PO DAILY 90 days omeprazole 40 mg PO BID pyridoxine (vitamin B6) 50 mg PO DAILY quetiapine (Seroquel) 50 mg PO BEDTIME sumatriptan succinate (Imitrex) 50 mg PO .QD PRN tamsulosin 0.4 mg PO BEDTIME 30 days Do you need a note to return to daycare/school/sports/work: No HPI HPI Obstructive sleep apnea: Details: Marquez is 63 years old gentleman moderately obese with BMI of 32.4. He is a known case of obstructive sleep apnea, has been using CPAP very regularly. Currently using full face mask and wants to change it to nasal, as he claims that fullface mask becomes somewhat uncomfortable during the night His weight has remained unchanged. He is not in any active weight management program. He does have generalized anxiety syndrome which is under control. [facility] Medical History LFT elevation SILVERIO (obstructive sleep apnea) Obesity (BMI 30.0-34.9) GERD (gastroesophageal reflux disease) Hypertension Impaired glucose tolerance Surgical History H/O left knee surgery History of shoulder surgery History of cataract surgery Family History Mother Heart attack Father No problems noted. Brother No problems noted. Sister No problems noted. Sister No problems noted. Brother Heart attack Son No problems noted. Son No problems noted. Daughter No problems noted. Social History Housing: House Alcohol intake: current Alcohol intake frequency: a few times a week Patient Tobacco Use Status: Former Tobacco user Tobacco use type: Cigarette Years Smoked: Quit 1998 e-Cigarette/Vaping Use: Never Used Second Hand Smoke Exposure: No Current occupational status: retired Current occupation: right hand dominant Cognitive needs: No Hearing needs: No Vision needs: Yes (reading glasses) Review of Systems Const All systems reviewed & are unremarkable except as noted in HPI and below Eyes Reports no additional complaints ENT Reports no additional complaints Card Reports no additional complaints Resp Reports no additional complaints GI Reports heartburn (GERD SYMPTOMS CONTROLLED WITH OMEPRAZOLE) Reports no additional complaints Musc Reports no additional complaints Skin/Breast Reports system reviewed and no additional complaints, except as documented Neuro Reports no additional complaints Psych Reports depression (Mild, controlled with minimal medication) Endo Reports no additional complaints Aller/Immun Reports no additional complaints Physical Exam Vital Signs: Last Vital Signs Pulse 67 05/05/24 09:33 BP 108/80 05/05/24 09:33 Pulse Ox 95 05/05/24 09:33 Oxygen Delivery Method Room Air 05/05/24 09:33 BMI result Body Mass Index 32.4 Const General: healthy appearing (Except for overweight .), comfortable, no acute distress, alert and awake Orientation/consciousness: patient oriented x3 HEENT Head: Yes normal to inspection General nose exam: No nasal polyps present and No nasal discharge present Face and sinus: Yes sinuses nontender Mouth: oropharynx normal Throat: Yes posterior oropharynx normal Eyes General: appearance normal, both eyes and all related structures Neck Neck: Yes normal visual inspection, Yes no lymphadenopathy, Yes trachea midline and Yes no JVD Thyroid: Thyroid normal Chest Chest palpation & inspection: normal inspection of the chest, normal palpation of entire chest wall and no tenderness Resp Effort & Inspection: normal respiratory effort Auscultation: clear to auscultation bilaterally, no rhonchi and no wheezes Percussion: percussion normal Cardio Palpation: normal PMI Rate: regular rate Rhythm: regular rhythm Heart sounds: no gallops and no murmurs Peripheral pulses: Peripheral pulses 2+ throughout GI Palpation (GI): Soft to palpation, nontender, No hepatosplenomegaly present and no masses Auscultation: normal bowel sounds Back/Spine/Pelvis Thoracic/Lumbar Spine: thoracic and lumbar spine normal to inspection Skin General skin exam: no rashes or lesions noted and dry skin (RELATED TO PSORIASIS) Neuro General: patient oriented x3 and no focal motor deficits Cranial nerves: Yes CN's II-XII intact bilaterally Extrem General: Yes normal to inspection, Yes no clubbing, cyanosis or edema and Yes no calf tenderness Psych Appearance: grossly normal and well kempt Speech and movement: Normal speech and movement present Results Reviewed Results Reviewed: Compliance report is reviewed. He uses 30/30 nights, 100%. Average use it per night 6 hours 58 minute. Pressure used is mostly 13-14 cm. .There is no significant air leak Residual AHI 1.1 Assessment & Plan Assessment & Plan (1) Obesity (BMI 30.0-34.9): Comment: PATIENT REMAINS MODERATELY OBESE. HE IS NOT IN ANY ACTIVE WEIGHT MANAGEMENT PROGRAM. BECAUSE OF HIS ANXIETY DISORDER HE IS NOT GOING OUTDOORS MUCH AND DOES NOT DO ANY EXERCISE. Code(s): E66.9 - Obesity, unspecified Category: Medical Plan: DISCUSSED WITH HIM ABOUT DIET MANAGEMENT AND WALKING MORE EVERY DAY. NEEDS TO LOSE ABOUT 10 LB OF WEIGHT. (2) SILVERIO (obstructive sleep apnea): Comment: KNOWN CASE OF SILVERIO. USING CPAP REGULARLY, COMPLIANCE IS OK . AND HE IS DEFINITELY BENEFITING FROM THE USE OF CPAP. WANTS TO TRY A NASAL INTERFACE. Code(s): G47.33 - Obstructive sleep apnea (adult) (pediatric) Category: Medical Plan: COMMENDED FOR GOOD COMPLIANCE. ADVISED TO CONTINUE USING CPAP EVERY NIGHT FOR INTERFACE GIVEN SAMPLE OF NASAL AIR FROM THE OFFICE, TO TRY, HE MAY ALTERNATE BETWEEN NASAL AIR AND FULLFACE MASK. Coding Level of Care Code Est Pt Level 3 (34650) Diagnoses Obesity (BMI 30.0-34.9) E66.9 SILVERIO (obstructive sleep apnea) G47.33
== END 2024-05-05 09:47 | disposition home or self-care (01) ==
PROVIDERS: PCP Internal Medicine; Referring Provider Internal Medicine; Visit Provider Internal Medicine
DX: E66.9 Obesity, unspecified (principal); G47.33 Obstructive sleep apnea (adult) (pediatric)
CPT/HCPCS: 99213

== ENCOUNTER → 2024-05-05 09:25 | Outpatient (BNVA) | payer OTHER, SELFPAY | PROVIDERS: PCP Internal Medicine; Visit Provider Internal Medicine | DX: G47.33 Obstructive sleep apnea (adult) (pediatric) (principal); E66.9 Obesity, unspecified; Z99.89 Dependence on other enabling machines and devices; Z68.32 Body mass index [BMI] 32.0-32.9, adult | CPT/HCPCS: 99212 ==

== ENCOUNTER 2024-05-06 09:43 | Outpatient (AMB) | payer OTHER, SELFPAY ==
--- NOTE | 2024-05-06 09:43 | MHC.OFFVIS ---
Intake Visit Reasons: 2m/PVR Intake Note: Patient presents today for 2m f/u Urinary Frequency/PVR Urology Medications: TAMSULOSIN,PYRIDOXINE Allergies to Antibiotic: Clindamycin Blood Thinner: ASA PVR: 77ml's TODAY'S PVR:22ml's Photoengraving Apprentice Required: No Accompanied by: Self / Same As Patient Allergies clindamycin Adverse Reaction (Verified 05/06/24 10:18) Anaphylaxis Medication List - Last Reconciled 05/06/24 by RYAN Arguello aspirin (Adult Low Dose Aspirin) 81 mg PO DAILY atorvastatin 20 mg PO DAILY 90 days bupropion HCl XL 450 mg PO DAILY calcium citrate 250 mg PO DAILY cholecalciferol (vitamin D3) 25 mcg PO DAILY diltiazem HCl CD TAKE 1 CAPSULE BY MOUTH DAILY folic acid 0.4 mg PO DAILY lorazepam 1 mg PO DAILY PRN metoprolol succinate ER 50 mg PO DAILY 90 days omeprazole 40 mg PO BID pyridoxine (vitamin B6) 50 mg PO DAILY quetiapine (Seroquel) 50 mg PO BEDTIME sumatriptan succinate (Imitrex) 50 mg PO .QD PRN terazosin 5 mg PO BEDTIME 30 days HPI Comments Details: Marquez is a very pleasant 63-year-old male patient of Dr. Peraza. He has a past medical history of generalized anxiety disorder, obstructive sleep apnea uses CPAP machine, obesity, GERD, hypertension and impaired glucose tolerance. He presents to the office today today for follow-up. Of note, patient was seen approximately 2 months ago as a new patient for bladder wall thickening at which time he was started on Flomax. In discussion with the patient today he reports feeling lower urinary tract symptoms have somewhat improved however he does continue with urinary frequency. During last office visit microscopic hematuria was noted at which time urine was sent for urine cytology. These results were reviewed with the patient today. 02/27 Negative for high-grade urothelial carcinoma. Previous workup has included a bladder ultrasound noting the bladder is moderately distended. Bladder wall appears diffusely thickened with mild irregularity, although this could partially be attributable to incomplete distention. Bilateral ureteral jets are demonstrated. Prevoid bladder volume is approximately 170 mL. Postvoid bladder volume is approximately 20mls. Prostate volume is approximately 19 mL. In office urinalysis results reviewed with the patient today. Trace microscopic hematuria noted. When asked he does reports previous smoking history however quit approximately 25 years ago. He reports smoking for approximately 20 years 1 pack per day. PVR 22mLs. Discussed potential causes for microscopic hematuria may/can include but are not limited to kidney stones, cancer in the urinary tract, BPH, kidney stone disease or inflammatory conditions of the urinary tract. Discussed at length potential causes for lower urinary tract symptoms patient is experiencing. Discussed possible near future in office cystoscopy for further assessment evaluation. In review of patient's chart it appears PSA 06/29 0.5. He otherwise offers no other issues or concerns at this time. [facility] Medical History LFT elevation SILVERIO (obstructive sleep apnea) Obesity (BMI 30.0-34.9) GERD (gastroesophageal reflux disease) Hypertension Impaired glucose tolerance Surgical History H/O left knee surgery History of shoulder surgery History of cataract surgery Family History Mother Heart attack Father No problems noted. Brother No problems noted. Sister No problems noted. Sister No problems noted. Brother Heart attack Son No problems noted. Son No problems noted. Daughter No problems noted. Social History Housing: House Alcohol intake: current Alcohol intake frequency: a few times a week Patient Tobacco Use Status: Former Tobacco user Tobacco use type: Cigarette Years Smoked: Quit 1998 e-Cigarette/Vaping Use: Never Used Second Hand Smoke Exposure: No Current occupational status: retired Current occupation: right hand dominant Cognitive needs: No Hearing needs: No Vision needs: Yes (reading glasses) Review of Systems Const Reports as per HPI Eyes Reports no additional complaints ENT Reports no additional complaints Card Reports as per HPI Resp Reports as per HPI GI Reports as per HPI Reports as per HPI Musc Details: Reports joint pains, neck stiffness, and headaches; however recently diagnosed with Lyme disease and on doxycycline. Neuro Reports as per HPI Psych Reports as per HPI Endo Reports no additional complaints Physical Exam Const General: cooperative, healthy appearing, comfortable, no acute distress, well developed, alert and awake Nutritional Appearance: overweight Orientation/consciousness: patient oriented x3 Limitations: no limitations HEENT Head: Yes normal to inspection, Yes normocephalic and Yes atraumatic Ears: hearing grossly normal bilaterally Eyes General: appearance normal, both eyes and all related structures Neck Neck: Yes normal visual inspection and Yes trachea midline Chest Chest palpation & inspection: normal inspection of the chest Resp Effort & Inspection: normal respiratory effort and able to speak in complete sentences Cardio Rate: regular rate GI Inspection: Yes normal to inspection General: Yes no CVA tenderness Back/Spine/Pelvis Back: no CVA tenderness Skin General skin exam: no rashes or lesions noted Neuro General: patient oriented x3 Extrem General: Yes normal to inspection Psych Appearance: grossly normal and well kempt Mental Status: mental status grossly normal Speech and movement: Normal speech and movement present and Clear speech present Affect: normal affect Attitude: cooperative Thought process: Normal thought process present Thought content: Normal thought content present Insight: Fair insight present (Psych) Judgement: Fair judgement present (Psych) Office Procedures Post Void Residual Post Residual Void Post Void Residual (PVR): 22 [id number] Void Residual by ultrasound Results AMB Urinalysis, Automated UA Leukoctes 0 Susanna/uL Last Edit by VIPUL Hilliard on 05/06/24 09:56 UA Nitrite Negative Last Edit by VIPUL Hilliard on 05/06/24 09:56 UA Urobilinogen 0.2 mg/dL Last Edit by VIPUL Hilliard on 05/06/24 09:56 UA Protein 15 mg/dL Last Edit by VIPUL Hilliard on 05/06/24 09:56 UA pH 5.5 Last Edit by VIPUL Hilliard on 05/06/24 09:56 UA Blood 10 Deepak/uL Last Edit by VIPUL Hilliard on 05/06/24 09:56 UA Specific [place] 1.025 Last Edit by VIPUL Hilliard on 05/06/24 09:56 UA Ketone Last Edit by VIPUL Hilliard on 05/06/24 09:56 UA Bilirubin 0 mg/dL Last Edit by VIPUL Hilliard on 05/06/24 09:56 UA Glucose 0 mg/dL Last Edit by VIPUL Hilliard on 05/06/24 09:56 Results Reviewed Results Reviewed: Laboratory Last Values Urine pH (Auto) 5.5 05/06/24 09:55 Specific [place] (Auto) 1.025 05/06/24 09:55 Urine Protein (Auto) 15 mg/dL 05/06/24 09:55 Glucose (UA)(Auto) 0 mg/dL 05/06/24 09:55 Urine Blood (Auto) 10 Deepak/uL 05/06/24 09:55 Urine Nitrite (Auto) Negative 05/06/24 09:55 Urine Bilirubin (Auto) 0 mg/dL 05/06/24 09:55 Urine Urobilinogen (Auto) 0.2 mg/dL 05/06/24 09:55 Leukocyte Esterase (Auto) 0 Susanna/uL 05/06/24 09:55 Assessment & Plan Assessment & Plan (1) Microscopic hematuria: Code(s): R31.29 - Other microscopic hematuria Category: Medical (2) Lower urinary tract symptoms (LUTS): Code(s): R39.9 - Unspecified symptoms and signs involving the genitourinary system Category: Medical Plan In office urinalysis results reviewed with the patient today; as noted above. Previous urine cytology results reviewed with the patient today; as noted above. Discussed at length potential causes of microscopic hematuria in the setting of previous nicotine dependence; discussed further workup to include CT urogram as well as in office cystoscopy; however, patient declines at this time. Stop Flomax. Start terazosin 5 mg at bedtime. Discussed at length bladder triggers/irritants. Discussed importance of limiting fluids 2-3 hours prior to bed to decrease episodes of nocturia. Discussed possible near future in office cystoscopy if symptoms persist and/or worsen. Follow-up in 1-3 months with PVR; or sooner with any issues, concerns, and or questions. Orders: Orders AMB Urinalysis Automated Today Z13.9 - Encounter for screening, unspecified Medications: New terazosin 5 mg PO BEDTIME 30 caps 2RF 30 days N40.1 - Benign prostatic hyperplasia with lower urinary tract symptoms, R35.0 - Frequency of micturition Discontinued tamsulosin Discontinued Reason: Doctor's Order 0.4 mg PO BEDTIME 30 days 30 caps 3RF N40.1 - Benign prostatic hyperplasia with lower urinary tract symptoms, R35.1 - Nocturia Patient Instructions: The patient had an opportunity to ask questions regarding the treatment plan. All questions were answered. Physical exam, labs, and imaging were discussed and reviewed in detail. As well as risks, benefits, and discussion of treatment choices. No major barriers to understanding were identified. The patient expressed understanding and agreement with the above treatment plan. The patient was made aware they should contact our office by phone for worsening of their current condition, the appearance of new symptoms, or with any questions or concerns. Compliance is encouraged with any medications and follow up testing that is ordered. It is a privilege to be allowed the opportunity to participate in? your urological care.? Again, if you have any questions or concerns If you have any questions or concerns please do not hesitate to contact me. The office is [phone]. This note is constructed using voice recognition software. While every effort has been made to ensure accuracy environmental studies faculty member errors may have been included. Yours sincerely, SHARON Arguello Coding Level of Care Code Est Pt Level 4 (04943) Diagnoses Microscopic hematuria R31.29 Lower urinary tract symptoms (LUTS) R39.9 CPT Codes Post Residual Void - PVR CPT Code: 43015-Lmfs Void Residual by ultrasound ([id number])
== END 2024-05-06 10:13 | disposition home or self-care (01) ==
PROVIDERS: PCP Internal Medicine; Visit Provider Nurse Practitioner Family
DX: R31.29 Other microscopic hematuria (principal); R39.9 Unspecified symptoms and signs involving the genitourinary system; Z13.9 Encounter for screening, unspecified
CPT/HCPCS: 99214

== ENCOUNTER → 2024-05-06 09:43 | Outpatient (BNVA) | payer OTHER, SELFPAY | PROVIDERS: PCP Internal Medicine; Visit Provider Nurse Practitioner Family | DX: R31.29 Other microscopic hematuria (principal); R39.9 Unspecified symptoms and signs involving the genitourinary system | CPT/HCPCS: 51798; 81003; 99212 ==

== ENCOUNTER 2024-05-25 09:50 | Outpatient (AMB) | payer OTHER, SELFPAY ==
--- NOTE | 2024-05-25 10:18 | A.OFFVIS_ITS ---
Vital Signs 05/25/24 10:28 Height 6 ft Weight 240 lb BMI 32.5 BP 122/84 Blood Pressure Location Rt brachial Position Sitting Pulse 70 Pulse Source Pulse Oximeter Pulse Oximetry (%) 97 Oxygen Delivery Method Room Air Intake Visit Reasons: MFP-Jeramrug-JQAP Intake Note: Patient presents for headache Allergies clindamycin Adverse Reaction (Verified 05/25/24 10:27) Anaphylaxis Medication List - Last Reconciled 05/25/24 by [place], NAVID amitriptyline 25 mg PO BEDTIME aspirin (Adult Low Dose Aspirin) 81 mg PO DAILY atorvastatin 20 mg PO DAILY 90 days bupropion HCl XL 450 mg PO DAILY [id number] 50-300-40 mg 2 caps PO BID calcium citrate 250 mg PO DAILY cholecalciferol (vitamin D3) 25 mcg PO DAILY diltiazem HCl CD TAKE 1 CAPSULE BY MOUTH DAILY folic acid 0.4 mg PO DAILY lorazepam 1 mg PO DAILY PRN metoprolol succinate ER 50 mg PO DAILY 90 days omeprazole 40 mg PO BID pyridoxine (vitamin B6) 50 mg PO DAILY quetiapine (Seroquel) 50 mg PO BEDTIME sumatriptan succinate (Imitrex) 50 mg PO .QD PRN terazosin 5 mg PO BEDTIME 30 days HPI Comments Details: Right-handed 63-yr-old male presents for new pt evaluation of headache disorder. Pt reports he has had headaches for at least 3 yrs, which started w/o known precipitating cause. He has 2 headache sub-types- a right stabbing temporal HAS and and a right pressure headache. He has tried acute tx's which have not helped- Sumatriptan 50mg, dilaudid, Tylenol, Ibuprofen, Fioricet- none of which have helped. He did see neurology in the past at [facility]- states had head imaging, which was normal. Was tx'd for Lyme dz in February 2024- s/s neck stiffness, intermittent fevers, headache- feeling betetr s/p 3 wk course of Doxy. States his above headache started prior to the Lyme infection. PMH and ROS are notable for:? General- tinnitus d/t service w/ high noise exposure. Musculoskeletal disorders or injury: has intermittent sharp non-radiating low back-hip pain- can last a few days. Tries to sleep straight to avoid waking up w/ a stiff neck. Mood d/o: Anxiety, Depression Resp: Has some SOB on exertion- such as when skiing. Allergies throughout the year. SILVERIO- managed by Dr Rivas- last PAP compliance report shows AHI 1/hr. CV disease: HTN HLD- well-controlled Clotting or hematology d/o: : h/o kidney stones Pertinent denials include: Vision changes- is photophobic s/p Lasix sx. Usual dizziness. History of concussion/head injury, Respiratory d/o, Clotting or hematology d/o, Endocrine d/o, metabolic d/o, History of seizure, syncope, or drop attacks, GI d/o, Constipation, Leg Cramps, Family history of migraine or other headache disorder Lifestyle considerations: Sleep routine: Usual bedtime: 9-11pm and wake-up time: 4-6am Sleep difficulties: Sleeps ok. Caffeine use: 1 cup of coffee per day Substance use: Alcohol- 4-5 beers if watching sports etc- ~4 days per week. Exercise:?Walks. 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 He is f[facility]b the [facility]. Family planning: None Headache questionnaire:? Previous work-up: believes was done a few yrs ago at [facility] Types of headache disorders: 2 Typical headache characteristics: Prodrome symptoms: Denies Aura: Denies Pain intensity: mild-moderate Location, quality, characteristics: Often pressure right sided temporal/just the lateral aspect of right forehead, but sometimes can move across forehead into ronit temples. Associated symptoms: photophobia Postdrome: denies Triggers:No known triggers Time of day: Sometimes can wake up with headache, but no specific time of day Duration and Frequency: w/o tx lasts 1-2 hours, occurs ~5 x's per week. How does headache impact your life? He is able to do his usual activities. Typical stabbing headache: Severe sharp stabbing pain in right sikhism, comes on suddenly w/o provocation, may repeat after a few seconds, max 5 stabs in an episode. Usually 1 episode in a day, and occurs about once a month. It can happen w/wo his other headache. Current acute medication use/interventions: Tylenol, Ibuprofen, Fioricet (b orrowed)- does not help. Current preventative medication use: Denies Non-pharmacological interventions: Sits down and rests, closes his eyes, rubs his temples. [facility] Medical History LFT elevation SILVERIO (obstructive sleep apnea) Obesity (BMI 30.0-34.9) GERD (gastroesophageal reflux disease) Hypertension Impaired glucose tolerance Surgical History H/O left knee surgery History of shoulder surgery History of cataract surgery Family History Mother Heart attack Father No problems noted. Brother No problems noted. Sister No problems noted. Sister No problems noted. Brother Heart attack Son No problems noted. Son No problems noted. Daughter No problems noted. Social History Housing: House Alcohol intake: current Alcohol intake frequency: a few times a week Patient Tobacco Use Status: Former Tobacco user Tobacco use type: Cigarette Years Smoked: Quit 1998 e-Cigarette/Vaping Use: Never Used Second Hand Smoke Exposure: No Current occupational status: retired Current occupation: right hand dominant Cognitive needs: No Hearing needs: No Vision needs: Yes (reading glasses) Physical Exam Vital Signs: Last Vital Signs Pulse 70 05/25/24 10:28 BP 122/84 05/25/24 10:28 Pulse Ox 97 05/25/24 10:28 Oxygen Delivery Method Room Air 05/25/24 10:28 BMI result Body Mass Index 32.5 Const Orientation/consciousness: patient oriented x3 Resp Effort & Inspection: normal respiratory effort and able to speak in complete sentences Neuro Other: No palpable scalp tenderness. Bilateral mild masseter hypertrophy. Signs of lower frontal teeth wearing. Bilateral posterior cervical tightness. Cervical ROM: limited in extension and bilateral rotation. Left lateral rotation and Left Spurling: elicits non-radiating left base of neck paraspinal tightness. Right Spurling: normal. General: patient oriented x3 Cranial nerves: Yes CN's II-XII intact bilaterally Cognition (Neuro): normal cognition Gait exam (Neuro): Normal gait present Motor exam (neuro): 5/5 motor strength present throughout Deep tendon reflexes (DTR's): Right triceps reflex intensity grade: 2+, Left triceps reflex intensity grade: 2+, Rt Biceps (C5, C6): 2+, Left biceps reflex intensity grade: 2+, Right brachioradialis reflex intensity grade: 2+, Left brachioradialis reflex intensity grade: 2+, Right patellar reflex intensity grade: 2+ and Left patellar reflex intensity grade: 2+ Pupils: Normal pupillary reactivity/response: bilateral Psych Appearance: grossly normal Mental Status: mental status grossly normal Speech and movement: Normal speech and movement present Affect: normal affect Attitude: cooperative Thought process: Normal thought process present Assessment & Plan Assessment & Plan (1) Headache: Code(s): R51.9 - Headache, unspecified Category: Medical (2) Stabbing headache: Comment: Episodes of sudden Right sided stabbing pain, w/ max 5 stabs per attack (entire episode < 5 minutes) w/o associated autonomic features. Code(s): G44.85 - Primary stabbing headache Category: Medical Plan Discussed that both pt's headache s/s may be secondary to bruxism, cervical neck tightness. Pt has well-treated SILVERIO, thus I do not think this is r/t SILVERIO dx. It is possible that his current Amitriptyline use is minimizing his headache and it's associated symptoms, thus migraine w/o aura is still a possible etiology. Less suspicion for TA d/t pt has had headaches s/s for mx yrs w/o vision changes. However, will request any head imaging and labs (ESR, CRP) done through [facility] to assess for any possible secondary/alternate etiologies. Consider additional work-up upon review. Trial OTC Magnesium for headache, bruxism, muscle tightness. Trial OTC mouth guard and pt to discuss w/ dentist. Ensure pillows are supportive of his neck. Offered PT for bruxism/craniosacral tx- pt declined at this time. Increase cervical and upper body ROM and stretching. Continue APAP- managed by Dr Rivas. Re-trial sumatriptan at 100mg prn, MR gail's 1 (max 200mg/per day). May take w/ Tylenol or Ibuprofen. I would not continue Fioricet. f/u upon review of above and in 6 months or sooner prn. Medications: New sumatriptan succinate 50 - 100 mg orally at onset of headache, may repeat in 2 hrs PRN; max 2 tabs per day or 4 tabs/week (may take with Ibuprofen) 12 tabs 6RF migraine headache 30 days Coding Level of Care Code New Pt Level 4 (19810) Diagnoses Headache R51.9 Stabbing headache G44.85
[2024-05-25 10:28] VITALS: BP 122/84; PULSE 70; O2SAT 97; BMI 32.5
== END 2024-05-25 11:30 | disposition home or self-care (01) ==
PROVIDERS: PCP Internal Medicine; Referring Provider Internal Medicine; Visit Provider Nurse Practitioner Family
DX: G44.85 Primary stabbing headache (principal)
CPT/HCPCS: 99204

== ENCOUNTER → 2024-05-25 09:50 | Outpatient (BNVA) | payer OTHER, SELFPAY | PROVIDERS: PCP Internal Medicine; Visit Provider Nurse Practitioner Family | DX: G44.85 Primary stabbing headache (principal) | CPT/HCPCS: 99202 ==

== ENCOUNTER 2024-07-24 09:36 | Outpatient (AMB) | payer OTHER, SELFPAY ==
--- NOTE | 2024-07-24 09:42 | A.OFFPC_ITS ---
Vital Signs 07/24/24 09:48 Height 6 ft Weight 234 lb 2 oz BMI 31.7 BP 120/82 Blood Pressure Location Lt brachial Position Sitting Pulse 59 Pulse Source Pulse Oximeter Pulse Oximetry (%) 98 Oxygen Delivery Method Room Air Intake Visit Reasons: Followup Accounting Methods Analyst Required: No Accompanied by: Self / Same As Patient Allergies clindamycin Adverse Reaction (Verified 07/24/24 09:50) Anaphylaxis Tobacco use date assessed: 03/16/24 Fall risk assessment: No Falls in past year Last assessed Fall Risk: 07/24/24 Dental Screening Dental Screen Date: 12/17/23 HPI Followup HPI Details 64-year-old obese male with obstructive sleep apnea hypertension GERD last seen in 03/26/2024 patient was treated with doxycycline for Lyme. Otherwise last colon test was done in 2020. Review of the notes in May 25 patient was seen by Neurology for headache. Currently on amitriptyline advised workup magnesium to help with bruxism and muscle tightness mouth guard sumatriptan trial. Patient was denied Fioricet. Patient has been seen by Urology also for urinary frequency with tamsulosin and B6. Advised to stop Flomax and start on terazosin 5 mg. As for the sleep apnea seen Pulmonary in April compliance good with CPAP use patient had blood work in March 01 normal blood count normal platelet blood sugar was 112 good electrolytes kidney function is normal noted liver number elevation. Patient also had an MRI of the right shoulder in 03/26/2024Moderate subscapularis tendinosis with distal articular surface partial tearing, increased in prominence when compared to the prior examination. Minimal distal supraspinatus tendinosis, unchanged. 2. Medial dislocation of the proximal lo ng head biceps tendon through the subscapularis tendon tear. Proximal long head biceps tendinosis and longitudinal partial tearing, slightly increased when compared to the prior examination. 3. Nondisplaced undersurface tearing of the superior, posterosuperior, posterior, and posteroinferior labrum, increased in prominence when compared to the prior examination. New posterior parameniscal cyst measuring up to 1.7 cm. 4. Mild chronic posterior subluxation of the humeral head with [id number] glenohumeral osteoarthritis, slightly progressed when compared to the prior examination. Trace joint effusion. Patient has not seen Orthopedics and was advised to follow-up. Patient continues to have some pain on the right shoulder. As for the headache took the medication advised but did not help. Patient will continue to follow-up discussed about fluid management eating healthier and keep active. Blood work requested [facility] Medical History LFT elevation SILVERIO (obstructive sleep apnea) Obesity (BMI 30.0-34.9) GERD (gastroesophageal reflux disease) Hypertension Impaired glucose tolerance Surgical History H/O left knee surgery History of shoulder surgery History of cataract surgery Family History Mother Heart attack Father No problems noted. Brother No problems noted. Sister No problems noted. Sister No problems noted. Brother Heart attack Son No problems noted. Son No problems noted. Daughter No problems noted. Social History Housing: House Alcohol intake: current Alcohol intake frequency: a few times a week Patient Tobacco Use Status: Former Tobacco user Tobacco use type: Cigarette Years Smoked: Quit 1998 e-Cigarette/Vaping Use: Never Used Second Hand Smoke Exposure: No service: No Current occupational status: retired Current occupation: right hand dominant Cognitive needs: No Hearing needs: No Vision needs: Yes (reading glasses) Questionnaire Thrive Questionnaire Date Thrive assessed: 12/17/23 YADIRA-7 AMB Questionnaire YADIRA-7 Date YADIRA - 7 assessed: 12/17/23 Source: Developed by Drs. Dayron sOborne, Lety Higgins, Ronald Pacheco and colleagues, with an educational joya from [employer]. Physical exam (Primary Care) Vital Signs: Last Vital Signs Pulse 59 07/24/24 09:48 BP 120/82 07/24/24 09:48 Pulse Ox 98 07/24/24 09:48 Oxygen Delivery Method Room Air 07/24/24 09:48 BMI result Body Mass Index 31.7 Tobacco/Smoking Status: Tobacco use Status Tobacco use date assessed 03/16/24 07/24/24 09:42 Patient Tobacco Use Status Former Tobacco user 07/24/24 09:42 Tobacco use type Cigarette 07/24/24 09:42 e-Cigarette/Vaping Use Never Used 07/24/24 09:42 Thrive Assessment: Date of Thrive Assessment Date Thrive assessed 12/17/23 07/24/24 09:42 Const General: alert; No acute distress Eyes Conjunctivae: conjunctivae normal Resp Auscultation: clear to auscultation bilaterally Cardio Rate: regular rate Rhythm: regular rhythm GI Inspection: Yes normal to inspection Extrem General: Yes normal to inspection and No edema Office Procedures Flu Questionnaire Does the patient have a severe egg allergy?: No Does the patient have severe life threatening allergies?: No Does the patient have a fever or illness today?: No Has the patient ever had Guillain-Adamant Syndrome?: No Has the patient ever had any past reaction to a flu shot?: No Immunizations Fluarix Triv 2403-1613 (PF) 45 mcg (15 mcg x 3)/0.5 mL IM syringe Performing Provider: Tracy Peraza MD Performing Location: [facility] – [place] Adult Primary [facility] Administered by: VIPUL Garcia on 07/24/24 09:49 Dose Route Admin Location Dispensed Lot Number Expiration Date [employer] 0.5 mL IM Left Deltoid 0.5 mL [id number] 04/05/25 [id number] [email or web address] VIS Given Date VIS Provided VIS Publication Date 07/24/24 Single Vaccine 21 Eligibility Eligibility Date Funding Source Not [facility] Eligible 07/24/24 Private Coding Level of Care Code Est Pt Level 4 (35767) Diagnoses Stabbing headache G44.85 Frequency of micturition R35.0 Hypercholesterolemia E78.00 Generalized anxiety disorder F41.1 SILVERIO (obstructive sleep apnea) G47.33 Obesity (BMI 30.0-34.9) E66.9 Essential hypertension I10 Hypertension type: essential hypertension Primary osteoarthritis, right shoulder M19.011 Assessment & Plan Assessment & Plan (1) Stabbing headache: Comment: Episodes of sudden Right sided stabbing pain, w/ max 5 stabs per attack (entire episode < 5 minutes) w/o associated autonomic features. Code(s): G44.85 - Primary stabbing headache Category: Medical Plan: Patient has seen with Neurology on amitriptyline and has been prescribed migraine medication. Advised to follow-up with Neurology as the medications given did not help. (2) Frequency of micturition: Code(s): R35.0 - Frequency of micturition Category: Medical Plan: Patient follows up with urology changed medication to terazosin. Continue to follow-up with urology (3) Hypercholesterolemia: Code(s): E78.00 - Pure hypercholesterolemia, unspecified Category: Medical Plan: Avoid fried foods, chicken skin, eggs, butter margarine, pastries and meat. Be it pork or beef they have a lot of cholesterol LDL goal of less than 130 and tri glyceride of less than 150 on atorvastatin 20 mg once a day blood work requested. (4) Generalized anxiety disorder: Comment: [facility] Code(s): F41.1 - Generalized anxiety disorder Category: Medical Plan: Continue with therapy and counseling on Wellbutrin on lorazepam Seroquel (5) SILVERIO (obstructive sleep apnea): Comment: KNOWN CASE OF SILVERIO. USING CPAP REGULARLY, COMPLIANCE IS OK . AND HE IS DEFINITELY BENEFITING FROM THE USE OF CPAP. WANTS TO TRY A NASAL INTERFACE. Code(s): G47.33 - Obstructive sleep apnea (adult) (pediatric) Category: Medical Plan: Patient follows up with Pulmonary. Continue with using the CPAP more than 4 hours a night and benefits from this. (6) Obesity (BMI 30.0-34.9): Comment: PATIENT REMAINS MODERATELY OBESE. HE IS NOT IN ANY ACTIVE WEIGHT MANAGEMENT PROGRAM. BECAUSE OF HIS ANXIETY DISORDER HE IS NOT GOING OUTDOORS MUCH AND DOES NOT DO ANY EXERCISE. Code(s): E66.9 - Obesity, unspecified Category: Medical Plan: Diet and exercise (7) Hypertension: Code(s): I10 - Essential (primary) hypertension Category: Medical Qualifiers: Hypertension type: essential hypertension Qualified Code(s): I10 - Essential (primary) hypertension Plan: Continue with blood pressure medication. Decrease salt intake and exercise takes metoprolol 50 mg once a day diltiazem (8) Primary osteoarthritis, right shoulder: Comment: 03/26/2024Moderate subscapularis tendinosis with distal articular surface partial tearing, increased in prominence when compared to the prior examination. Minimal distal supraspinatus tendinosis, unchanged. 2. Medial dislocation of the proximal long head biceps tendon through the subscapularis tendon tear. Proximal long head biceps tendinosis and longitudinal partial tearing, slightly increased when compared to the prior examination. 3. Nondisplaced undersurface tearing of the superior, posterosuperior, posterior, and posteroinferior labrum, increased in prominence when compared to the prior examination. New posterior parameniscal cyst measuring up to 1.7 cm. 4. Mild chronic posterior subluxation of the humeral head with [id number] glenohumeral osteoarthritis, slightly progressed when compared to the prior examination. Trace joint effusion. Code(s): M19.011 - Primary osteoarthritis, right shoulder Category: Medical Plan: MRI of the shoulder showing the arthritis. Patient has been advised to follow- up with orthopedics Orders: Orders Influenza [id number] Immunization Today Z23 - Encounter for immunization Comprehensive Met. Panel Today R73.02 - Impaired glucose tolerance (oral) Complete Blood Count Auto Diff Today R73.02 - Impaired glucose tolerance (oral) Lipid Panel Today E78.00 - Pure hypercholesterolemia, unspecified, R73.02 - Impaired glucose tolerance (oral) Prostate Specific Antigen Scr Today R73.02 - Impaired glucose tolerance (oral) Free T4 (Free Thyroxine) Today R73.02 - Impaired glucose tolerance (oral) Magnesium Today R73.02 - Impaired glucose tolerance (oral) Phospholipase A2 Receptor Pnl Today R73.02 - Impaired glucose tolerance (oral) C Reactive Protein Today R73.02 - Impaired glucose tolerance (oral) Hemoglobin A1c Today R73.02 - Impaired glucose tolerance (oral) Thyroid Stimulating Hormone Today R73.02 - Impaired glucose tolerance (oral) Vitamin B12 and Folate Today R73.02 - Impaired glucose tolerance (oral) Erythrocyte Sedimentation Rate Today R73.02 - Impaired glucose tolerance (oral) Medications: Discontinued sumatriptan succinate (Imitrex) do not exceed 4 doses per 24 hrs Discontinued Reason: Duplicate 50 mg PO .QD PRN 10 tabs 3RF migraine headache R51.9 - Headache, unspecified quetiapine (Seroquel) Discontinued Reason: Patient Completed Course 50 mg PO BEDTIME 90 tabs 1RF G47.00 - Insomnia, unspecified terazosin Discontinued Reason: Patient Refused 5 mg PO BEDTIME 30 days 30 caps 2RF N40.1 - Benign prostatic hyperplasia with lower urinary tract symptoms, R35.0 - Frequency of micturition
[2024-07-24 09:48] VITALS: BP 120/82; PULSE 59; O2SAT 98; BMI 31.7
== END 2024-07-24 10:27 | disposition home or self-care (01) ==
PROVIDERS: PCP Internal Medicine; Visit Provider Internal Medicine
DX: G44.85 Primary stabbing headache (principal); R35.0 Frequency of micturition; E66.811 Obesity, class 1; Z68.30 Body mass index [BMI] 30.0-30.9, adult; E78.00 Pure hypercholesterolemia, unspecified; F41.1 Generalized anxiety disorder; G47.33 Obstructive sleep apnea (adult) (pediatric); I10 Essential (primary) hypertension; M19.011 Primary osteoarthritis, right shoulder; Z23 Encounter for immunization

== ENCOUNTER → 2024-07-24 09:36 | Outpatient (BNVA) | payer OTHER, SELFPAY | PROVIDERS: PCP Internal Medicine; Visit Provider Internal Medicine | DX: G44.85 Primary stabbing headache (principal); R35.0 Frequency of micturition; E78.00 Pure hypercholesterolemia, unspecified; F41.1 Generalized anxiety disorder; G47.33 Obstructive sleep apnea (adult) (pediatric); E66.9 Obesity, unspecified; Z68.31 Body mass index [BMI] 31.0-31.9, adult; I10 Essential (primary) hypertension; M19.011 Primary osteoarthritis, right shoulder; Z23 Encounter for immunization | CPT/HCPCS: 90471; 90656; 99212 ==

== ENCOUNTER 2024-07-28 11:38 | Outpatient (REF) | payer OTHER, SELFPAY ==
[2024-07-28 12:05] LABS: MANUAL DIFF FLAG NO
[2024-07-28 12:41] LABS: Basophils Absolute Auto 0.1 X10*3/uL (0.0-0.2); Basophils Percent Auto 1.1 % (0-2); Eosinophils Absolute Auto 0.2 X10*3/uL (0.0-0.4); Hematocrit 45.6 % (42.0-52.0); Hemoglobin 16.1 g/dl (14.0-18.0); Imm Gran Abs Auto 0.03 X10*3/uL (0.00-0.03); Imm Gran Pct Auto 0.4 % (0.0-0.4); Lymphocytes Absolute Auto 2.1 X10*3/uL (1.2-4.9); Lymphocytes Percent Auto 28.9 % (20-40); Mean Corpuscular HGB Conc 35.3 g/dl (31.0-36.0); Mean Corpuscular Hemoglobin 32.3 pg (27.0-33.0); Mean Corpuscular Volume 91.6 fL (80.0-98.0); Mean Platelet Volume 9.6 fL (9.4-12.4); Monocytes Absolute Auto 0.6 X10*3/uL (0.1-1.2); Neutrophils Absolute Auto 4.3 x10*3/uL (2.0-8.3); Neutrophils Percent Auto 58.6 % (45-73); Platelet Count 262 X10*3/uL (160-400); Red Blood Count 4.98 X10*6/uL (4.60-5.80); Red Cell Distribution Width 12.3 % (11.0-16.0); White Blood Count 7.3 X10*3/uL (4.8-10.8)
[2024-07-28 12:49] LABS: Estimated Average Glucose 123 mg/dL; Hemoglobin A1c % 5.9 % (<6.0); Total Hemoglobin (HGBA1C) 3816.3521 umol/L
[2024-07-28 13:20] LABS: Alanine Aminotransferase 47 U/L (0-40); Albumin Level 4.5 g/dL (3.5-5.0); Alkaline Phosphatase 57 U/L (39-117); Anion Gap 13 (12-20); Aspartate Amino Transferase 34 U/L (5-37); Bilirubin Total 0.6 mg/dL (0.0-1.0); Blood Urea Nitrogen 16 mg/dL (9-16); C Reactive Protein 0.26 mg/dL (< or = 0.50); Carbon Dioxide 26 mmol/L (22-29); Chloride 104 mmol/L (96-108); Cholesterol 204 mg/dL (<200); Estimated Glomerular Filt Rate > 60; Glucose Random 113 mg/dL (60-115); HDL Cholesterol 60 mg/dL (>40); LDL Cholesterol Calculated 104 mg/dL (<100); Magnesium 2.1 mg/dL (1.6-2.6); Potassium 4.1 mmol/L (3.3-5.1); Sodium 139 mmol/L (135-145); Total Protein 7.9 g/dL (6.5-8.0); Triglycerides 201 mg/dL (<150)
[2024-07-28 13:29] LABS: Erythrocyte Sedimentation Rate 6 MM/HR (0-15)
[2024-07-28 13:35] LABS: Thyroid Stimulating Hormone 2.88 uIU/mL (0.32-4.0)
[2024-07-28 13:40] LABS: Folate 14.9 ng/mL (> or = 4.0); Prostate Specific Antigen Scr 1.03 ng/mL (<0.05-4.0); Vitamin B12 340 pg/mL (200-900)
[2024-08-04 23:28] LABS: Phospholipase A2 IgG ELISA <4 RU/mL; Phospholipase A2 IgG IFA NEGATIVE (NEGATIVE)
== END 2024-07-28 11:39 | disposition home or self-care (01) ==
LOC: HO.LAB 11:38
PROVIDERS: PCP Internal Medicine; Visit Provider Internal Medicine
DX: R73.02 Impaired glucose tolerance (oral) (principal); E78.00 Pure hypercholesterolemia, unspecified; Z12.5 Encounter for screening for malignant neoplasm of prostate
CPT/HCPCS: 36415; 80053; 80061; 82607; 82746; 83036; 83520; 83735; 84153; 84439; 84443; 85025; 85652; 86140; 86255

== ENCOUNTER 2024-09-01 12:52 | Outpatient (AMB) | payer OTHER, SELFPAY ==
[2024-09-01 12:53] VITALS: BP 118/68; PULSE 66; O2SAT 97; BMI 31.9
--- NOTE | 2024-09-01 12:53 | MHC.PC.OV ---
Vital Signs 09/01/24 12:53 Height 6 ft Weight 235 lb BMI 31.9 BP 118/68 Blood Pressure Location Lt brachial Position Sitting Pulse 66 Pulse Source Pulse Oximeter Pulse Oximetry (%) 97 Oxygen Delivery Method Room Air Intake Visit Reasons: CPE Allergies clindamycin Adverse Reaction (Verified 09/01/24 12:54) Anaphylaxis Medication List - Last Reconciled 09/01/24 by Tracy Peraza MD amitriptyline 25 mg PO BEDTIME aspirin (Adult Low Dose Aspirin) 81 mg PO DAILY atorvastatin 20 mg PO DAILY 90 days bupropion HCl XL 450 mg PO DAILY calcium citrate 250 mg PO DAILY cholecalciferol (vitamin D3) 25 mcg PO DAILY clobetasol 0.05% 1 appl topical BID 2 weeks diltiazem HCl CD TAKE 1 CAPSULE BY MOUTH DAILY folic acid 0.4 mg PO DAILY lorazepam 1 mg PO DAILY PRN metoprolol succinate ER 50 mg PO DAILY 90 days omeprazole 40 mg PO BID prednisone 4 tabs QD x 2 days then 3 tabs QD x 2 days then 2 tabs Qd x 2 days then 1 tab QD x 2 days PO daily; pyridoxine (vitamin B6) 50 mg PO DAILY Tobacco use date assessed: 03/16/24 Fall risk assessment: No Falls in past year Last assessed Fall Risk: 09/01/24 Dental Screening Dental Screen Date: 12/17/23 HPI CPE HPI Details 64-year-old obese male with impaired glucose tolerance hypertension GERD history of esophageal stricture psoriasis obstructive sleep apnea generalized anxiety disorder hypercholesterolemia coming in for physical exam last seen in 07/26/2024. Patient's colonoscopy was last done in 08/26/2021. problematic about hand rash Psoriasis and asking for oral steroids and ointment [facility] Medical History LFT elevation SILVERIO (obstructive sleep apnea) Obesity (BMI 30.0-34.9) GERD (gastroesophageal reflux disease) Hypertension Impaired glucose tolerance Surgical History H/O left knee surgery History of shoulder surgery History of cataract surgery Family History Mother Heart attack Father No problems noted. Brother No problems noted. Sister No problems noted. Sister No problems noted. Brother Heart attack Son No problems noted. Son No problems noted. Daughter No problems noted. Social History (Updated 09/01/24 @ 13:33 by Tracy Peraza MD) Housing: House Alcohol intake: current Alcohol intake frequency: a few times a week Comment: 3x a week 3-4 beers Patient Tobacco Use Status: Former Tobacco user Tobacco use type: Cigarette Years Smoked: Quit 1998 e-Cigarette/Vaping Use: Never Used Second Hand Smoke Exposure: No service: No Current occupational status: retired Current occupation: right hand dominant Cognitive needs: No Hearing needs: No Vision needs: Yes (reading glasses) Questionnaire PHQ-9 Over the last 2 weeks, how often have you been bothered by any of the following problems? 1. Little interest or pleasure in doing things: not at all 2. Feeling down, depressed, or hopeless: not at all 3. Trouble falling or staying asleep, or sleeping too much: not at all 4. Feeling tired or having little energy: not at all 5. Poor appetite or overeating: several days 6. Feeling bad about yourself - or that you are a failure or have let yourself or your family down: not at all 7. Trouble concentrating on things, such as reading the newspaper or watching television: not at all 8. Moving or speaking so slowly that other people could have noticed. Or the opposite - being so fidgety or restless that you have been moving around a lot more than usual: not at all 9. Thoughts that you would be better off or of hurting yourself in some way: not at all Total score: 1 Depression Screening Interpretation: Negative Depression Screening Done: Yes [id number] - PHQ-9 Billing: Yes Source: Developed by Drs. Dayron Osborne, Lety Higgins, Ronald Pacheco and colleagues, with an educational joya from [employer]. Thrive Questionnaire Date Thrive assessed: 09/01/24 I am a: Patient What is your living situation today?: I have a steady place to live Within the past 12 months, did the food you bought not last and you didn't have the money to get more?: Never true Within the past 12 months, did you worry whether your food would run out before you got money to buy more?: Never true Do you have trouble paying for medicines?: No Do you have trouble getting transportation to medical appointments?: No Do you have trouble paying your heating and electricity bill?: No Do you have trouble taking care of your child, family member or friend?: No Do you have trouble with day-to-day activities such as bathing, preparing meals, shopping, managing finances, etc.?: No Are you currently unemployed and looking for a job?: No Are you interested in more education?: No Please select the resources that you would like help with: None Currently or been in a relationship where the following occur: No concerns reported THRIVE Score: 0 AUDIT C Alcohol Use Questionnaire (AUDIT-C) 1. How often do you have a drink containing alcohol?: 2-3 times a week 2. How many drinks containing alcohol do you have on a typical day when you are drinking?: 3 or 4 3. How often do you have six or more drinks on one occasion?: Monthly Total Score: 6 YADIRA-7 AMB Questionnaire YADIRA-7 Date YADIRA - 7 assessed: 09/01/24 Feeling nervous, anxious, or on edge: 1 = Several days Not being able to stop or control worryin = Not at all Worrying too much about different things: 0 = Not at all Trouble relaxin = Not at all Being so restless that it is hard to sit still: 0 = Not at all Becoming easily annoyed or irritable: 0 = Not at all Feeling afraid as if something awful might happen: 0 = Not at all Total YADIRA-7 score (0-4 normal; 5-9 mild; 10-14 moderate; 15-21 severe): 1 Source: Developed by Drs. Dayron Osborne, Lety Higgins, Ronald Pacheco and colleagues, with an educational joya from [employer]. Review of Systems Const Denies poor appetite and Denies weakness Eyes Denies no additional complaints ENT Reports Normal hearing present, Denies dizziness, Denies nasal congestion, Denies tinnitus and Denies sore throat Card Denies chest pain, Denies syncope, Denies rapid heart rate and Denies dyspnea Resp Denies cough and Denies dyspnea GI Denies change in stool character, Reports constipation, Denies diarrhea, Denies nausea and Denies vomiting Denies dysuria and Denies urinary frequency Neuro Reports Normal hearing present, Denies confusion, Denies dizziness, Denies syncope and Denies weakness Psych Denies confusion Physical exam (Primary Care) Vital Signs: Last Vital Signs Pulse 66 09/01/24 12:53 BP 118/68 09/01/24 12:53 Pulse Ox 97 09/01/24 12:53 Oxygen Delivery Method Room Air 09/01/24 12:53 BMI result Body Mass Index 31.9 Tobacco/Smoking Status: Tobacco use Status Tobacco use date assessed 03/16/24 09/01/24 12:55 Patient Tobacco Use Status Former Tobacco user 09/01/24 12:55 Tobacco use type Cigarette 09/01/24 12:55 e-Cigarette/Vaping Use Never Used 09/01/24 12:55 PHQ-9: PHQ-9 Score PHQ-9: Total score 1 09/01/24 13:08 Depression Screening Interpretation: Negative Thrive Assessment: Date of Thrive Assessment Date Thrive assessed 09/01/24 09/01/24 12:55 Currently or been in a relationship where the following occur: No concerns reported Const General: No confusion Orientation/consciousness: No confusion HENMT Head: Yes normocephalic Ears: external ears normal and TM's normal bilaterally Face and sinus: Yes normal facial exam Mouth: moist mucous membranes Throat: Yes tonsils normal Eyes Conjunctivae: conjunctivae normal Pupils: Equal, round and reactive pupils present and Pupil accommodation reflex normal Direct Ophthalmoscopy: normal light reflex Neck Neck: No lymphadenopathy Thyroid: Thyroid normal Chest Chest palpation & inspection: normal inspection of the chest Resp Effort & Inspection: normal respiratory effort and no audible wheezes Auscultation: clear to auscultation bilaterally, no crackles, no wheezes and lung sounds not diminished Cardio Rate: regular rate Rhythm: regular rhythm Peripheral pulses: radial pulses present and dorsalis pedis present GI Other: guaiac negative, prostate N Palpation (GI): no masses Auscultation: normal bowel sounds and normoactive bowel sounds Skin General skin exam: no rashes or lesions noted Rashes: no rashes Neuro General: No confusion Cranial nerves: Yes Equal, round and reactive pupils present and Yes Normal hearing present Cognition (Neuro): normal cognition Gait exam (Neuro): Normal gait present Motor exam (neuro): 5/5 motor strength present throughout Deep tendon reflexes (DTR's): Right brachioradialis reflex intensity grade: 2+, Left brachioradialis reflex intensity grade: 2+, Right patellar reflex intensity grade: 2+ and Left patellar reflex intensity grade: 2+ Extrem General: No edema Coding Level of Care Code Est Pt Prev Care 40-64y(10278) Diagnoses Obesity (BMI 30.0-34.9) E66.9 SILVERIO (obstructive sleep apnea) G47.33 Essential hypertension I10 Hypertension type: essential hypertension Gastroesophageal reflux disease without esophagitis K21.9 Esophagitis presence: without esophagitis Impaired glucose tolerance R73.02 Generalized anxiety disorder F41.1 Additional Codes PHQ-9 - 58023 - PHQ-9 Billing: Yes ([id number]) Assessment & Plan Assessment & Plan (1) Obesity (BMI 30.0-34.9): Comment: PATIENT REMAINS MODERATELY OBESE. HE IS NOT IN ANY ACTIVE WEIGHT MANAGEMENT PROGRAM. BECAUSE OF HIS ANXIETY DISORDER HE IS NOT GOING OUTDOORS MUCH AND DOES NOT DO ANY EXERCISE. Code(s): E66.9 - Obesity, unspecified Category: Medical Plan: Diet and exercise (2) SILVERIO (obstructive sleep apnea): Comment: KNOWN CASE OF SILVERIO. USING CPAP REGULARLY, COMPLIANCE IS OK . AND HE IS DEFINITELY BENEFITING FROM THE USE OF CPAP. WANTS TO TRY A NASAL INTERFACE. Code(s): G47.33 - Obstructive sleep apnea (adult) (pediatric) Category: Medical Plan: Continue to use the CPAP more than 4 hours a night and benefits from this. (3) Hypertension: Code(s): I10 - Essential (primary) hypertension Category: Medical Qualifiers: Hypertension type: essential hypertension Qualified Code(s): I10 - Essential (primary) hypertension Plan: Continue with blood pressure medication. Decrease salt intake and exercise on diltiazem metoprolol (4) GERD (gastroesophageal reflux disease): Code(s): K21.9 - Gastro-esophageal reflux disease without esophagitis Category: Medical Qualifiers: Esophagitis presence: without esophagitis Qualified Code(s): K21.9 - Gastro-esophageal reflux disease without esophagitis Plan: Avoid the foods that causes that usually spicy foods, tomato products, juices, coffee, soda and foods that your sensitive to. After eating do not lie down, allow 3-4 hours before in lie down. And keep the head of bed above 30 degrees to avoid the acid from going up. (5) Impaired glucose tolerance: Code(s): R73.02 - Impaired glucose tolerance (oral) Category: Medical Plan: Decrease the amount of carbohydrate intake, pasta, bread, rice and potatoes are all sugar and that is aside from all the sweet stuff, remember that fruits are good but they are Sweet also. (6) Generalized anxiety disorder: Comment: [facility] Code(s): F41.1 - Generalized anxiety disorder Category: Medical Plan: Continue with lorazepam as needed and Wellbutrin and amitriptyline Medications: New prednisone 4 tabs QD x 2 days then 3 tabs QD x 2 days then 2 tabs Qd x 2 days then 1 tab QD x 2 days PO daily; 20 tabs 0RF J45.909 - Unspecified asthma, uncomplicated, L40.9 - Psoriasis, unspecified clobetasol 0.05% 1 appl topical BID 2 weeks 45 grams 0RF L40.9 - Psoriasis, unspecified
== END 2024-09-01 13:55 | disposition home or self-care (01) ==
PROVIDERS: PCP Internal Medicine; Visit Provider Internal Medicine
DX: Z00.00 Encounter for general adult medical examination without abnormal findings (principal); E66.9 Obesity, unspecified; Z68.31 Body mass index [BMI] 31.0-31.9, adult; G47.33 Obstructive sleep apnea (adult) (pediatric); I10 Essential (primary) hypertension; K21.9 Gastro-esophageal reflux disease without esophagitis; R73.02 Impaired glucose tolerance (oral); F41.1 Generalized anxiety disorder

== ENCOUNTER → 2024-09-01 12:52 | Outpatient (BNVA) | payer OTHER, SELFPAY | PROVIDERS: PCP Internal Medicine; Visit Provider Internal Medicine | DX: Z00.00 Encounter for general adult medical examination without abnormal findings (principal); E66.9 Obesity, unspecified; Z68.31 Body mass index [BMI] 31.0-31.9, adult; G47.33 Obstructive sleep apnea (adult) (pediatric); I10 Essential (primary) hypertension; K21.9 Gastro-esophageal reflux disease without esophagitis; R73.02 Impaired glucose tolerance (oral); F41.1 Generalized anxiety disorder; Z71.3 Dietary counseling and surveillance | CPT/HCPCS: 96127 ==

== ENCOUNTER 2024-09-07 09:45 | Outpatient (AMB) | payer OTHER, SELFPAY ==
[2024-09-07 09:48] VITALS: BP 112/78; PULSE 60; O2SAT 96; BMI 32.0
--- NOTE | 2024-09-07 09:48 | MHC.OFFVIS ---
Vital Signs 09/07/24 09:48 Height 6 ft Weight 235 lb 14.314 oz BMI 32.0 BP 112/78 Blood Pressure Location Lt brachial Position Sitting Pulse 60 Pulse Source Pulse Oximeter Pulse Oximetry (%) 96 Oxygen Delivery Method Room Air Intake Visit Reasons: Obstructive sleep apnea Intake Note: pt is here for follow up and states he feels fine, no issues but has questions on mask. 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 Allergies clindamycin Adverse Reaction (Verified 09/07/24 10:16) Anaphylaxis Medication List - Last Reconciled 09/07/24 by Alfredito Rivas MD amitriptyline 25 mg PO BEDTIME aspirin (Adult Low Dose Aspirin) 81 mg PO DAILY atorvastatin 20 mg PO DAILY 90 days bupropion HCl XL 450 mg PO DAILY calcium citrate 250 mg PO DAILY cholecalciferol (vitamin D3) 25 mcg PO DAILY clobetasol 0.05% 1 appl topical BID 2 weeks diltiazem HCl CD TAKE 1 CAPSULE BY MOUTH DAILY folic acid 0.4 mg PO DAILY lorazepam 1 mg PO DAILY PRN metoprolol succinate ER 50 mg PO DAILY 90 days omeprazole 40 mg PO BID prednisone 4 tabs QD x 2 days then 3 tabs QD x 2 days then 2 tabs Qd x 2 days then 1 tab QD x 2 days PO daily; pyridoxine (vitamin B6) 50 mg PO DAILY Do you need a note to return to daycare/school/sports/work: No HPI HPI Obstructive sleep apnea: Details: 64 years old gentleman moderately obese with diagnosis of obstructive sleep apnea is here for his follow-up visit after 4 months. He has been using CPAP very regularly and sleeps good. Currently using nasal interface which is much more comfortable. Denies any daytime sleepiness. He is trying to lose weight slowly. FORMERLY [facility], 1928–1983 Medical History LFT elevation SILVERIO (obstructive sleep apnea) Obesity (BMI 30.0-34.9) GERD (gastroesophageal reflux disease) Hypertension Impaired glucose tolerance Surgical History H/O left knee surgery History of shoulder surgery History of cataract surgery Family History Mother Heart attack Father No problems noted. Brother No problems noted. Sister No problems noted. Sister No problems noted. Brother Heart attack Son No problems noted. Son No problems noted. Daughter No problems noted. Social History Housing: House Alcohol intake: current Alcohol intake frequency: a few times a week Comment: 3x a week 3-4 beers Patient Tobacco Use Status: Former Tobacco user Tobacco use type: Cigarette Years Smoked: Quit 1998 e-Cigarette/Vaping Use: Never Used Second Hand Smoke Exposure: No service: No Current occupational status: retired Current occupation: right hand dominant Cognitive needs: No Hearing needs: No Vision needs: Yes (reading glasses) Review of Systems Const All systems reviewed & are unremarkable except as noted in HPI and below Eyes Reports no additional complaints ENT Reports no additional complaints Card Reports no additional complaints Resp Reports no additional complaints GI Reports heartburn (GERD SYMPTOMS CONTROLLED WITH OMEPRAZOLE) Reports no additional complaints Musc Reports no additional complaints Skin/Breast Reports system reviewed and no additional complaints, except as documented Neuro Reports no additional complaints Psych Reports depression (Mild, controlled with minimal medication) Endo Reports no additional complaints Aller/Immun Reports no additional complaints Physical Exam Vital Signs: Last Vital Signs Pulse 60 09/07/24 09:48 BP 112/78 09/07/24 09:48 Pulse Ox 96 09/07/24 09:48 Oxygen Delivery Method Room Air 09/07/24 09:48 BMI result Body Mass Index 32.0 Const General: healthy appearing (Except for overweight .), comfortable, no acute distress, alert and awake Orientation/consciousness: patient oriented x3 HEENT Head: Yes normal to inspection General nose exam: No nasal polyps present and No nasal discharge present Face and sinus: Yes sinuses nontender Mouth: oropharynx normal Throat: Yes posterior oropharynx normal Eyes General: appearance normal, both eyes and all related structures Neck Neck: Yes normal visual inspection, Yes no lymphadenopathy, Yes trachea midline and Yes no JVD Thyroid: Thyroid normal Chest Chest palpation & inspection: normal inspection of the chest, normal palpation of entire chest wall and no tenderness Resp Effort & Inspection: normal respiratory effort Auscultation: clear to auscultation bilaterally, no rhonchi and no wheezes Percussion: percussion normal Cardio Palpation: normal PMI Rate: regular rate Rhythm: regular rhythm Heart sounds: no gallops and no murmurs Peripheral pulses: Peripheral pulses 2+ throughout GI Palpation (GI): Soft to palpation, nontender, No hepatosplenomegaly present and no masses Auscultation: normal bowel sounds Back/Spine/Pelvis Thoracic/Lumbar Spine: thoracic and lumbar spine normal to inspection Skin General skin exam: no rashes or lesions noted and dry skin (RELATED TO PSORIASIS) Neuro General: patient oriented x3 and no focal motor deficits Cranial nerves: Yes CN's II-XII intact bilaterally Extrem General: Yes normal to inspection, Yes no clubbing, cyanosis or edema and Yes no calf tenderness Psych Appearance: grossly normal and well kempt Speech and movement: Normal speech and movement present Results Reviewed Results Reviewed: Compliance report for the last 30 nights is reviewed. He has used 30/30 nights,. 100% Average use it per night 6 hours 38 minutes. There is very little air leak. Residual AHI 0.8 Assessment & Plan Assessment & Plan (1) Obesity (BMI 30.0-34.9): Comment: PATIENT REMAINS MODERATELY OBESE. SINCE HIS LAST VISIT HE HAS LOST ABOUT 5 LB OF WEIGHT. HE IS NOT IN ANY ACTIVE WEIGHT MANAGEMENT PROGRAM. BECAUSE OF HIS ANXIETY DISORDER HE IS NOT GOING OUTDOORS MUCH AND DOES NOT DO ANY EXERCISE. Code(s): E66.9 - Obesity, unspecified Category: Medical Plan: ENCOURAGED TO LIMIT HIS ORAL INTAKE AND TRY TO WALK DAILY, SO THAT HE WILL CONTINUE TO LOSE A FEW LBS EVERY MONTH. (2) SILVERIO (obstructive sleep apnea): Comment: KNOWN CASE OF SILVERIO. USING CPAP REGULARLY, COMPLIANCE IS GOOD . AND HE IS DEFINITELY BENEFITING FROM THE USE OF CPAP. HE LIKES THE NASAL INTERFACE WHICH IS MORE COMFORTABLE. Code(s): G47.33 - Obstructive sleep apnea (adult) (pediatric) Category: Medical Plan: COMMENDED FOR GOOD COMPLIANCE AND ADVISED TO KEEP ON USING CPAP MORE THAN 6 HOURS EVERY NIGHT. ORDER FOR NEW SUPPLIES IS BEING SENT INCLUDING THE NASAL AIR OR NASAL PILLOWS, Coding Level of Care Code Est Pt Level 3 (98521) Diagnoses Obesity (BMI 30.0-34.9) E66.9 SILVERIO (obstructive sleep apnea) G47.33
== END 2024-09-07 10:19 | disposition home or self-care (01) ==
PROVIDERS: PCP Internal Medicine; Visit Provider Internal Medicine
DX: E66.9 Obesity, unspecified (principal); G47.33 Obstructive sleep apnea (adult) (pediatric)
CPT/HCPCS: 99213

== ENCOUNTER → 2024-09-07 09:45 | Outpatient (BNVA) | payer OTHER, SELFPAY | PROVIDERS: PCP Internal Medicine; Visit Provider Internal Medicine | DX: E66.9 Obesity, unspecified (principal); G47.33 Obstructive sleep apnea (adult) (pediatric); Z68.32 Body mass index [BMI] 32.0-32.9, adult; Z99.89 Dependence on other enabling machines and devices | CPT/HCPCS: 99212 ==

== ENCOUNTER 2024-12-02 13:51 | Outpatient (AMB) | payer OTHER, SELFPAY ==
--- NOTE | 2024-12-02 13:54 | A.OFFVIS_ITS ---
Vital Signs 12/02/24 13:55 Height 6 ft Weight 247 lb BMI 33.5 BP 120/70 Blood Pressure Location Lt brachial Position Sitting Pulse 60 Pulse Source Pulse Oximeter Pulse Oximetry (%) 95 Oxygen Delivery Method Room Air Intake Visit Reasons: 6mo F/U Intake Note: Patient presents follow up headache medication Spike Maker Required: No Accompanied by: Self / Same As Patient Allergies clindamycin Adverse Reaction (Verified 12/02/24 13:57) Anaphylaxis Medication List - Last Reconciled 12/02/24 by NAVID Saucedo amitriptyline 25 mg PO BEDTIME aspirin (Adult Low Dose Aspirin) 81 mg PO DAILY atorvastatin 20 mg PO DAILY 90 days bupropion HCl XL 450 mg PO DAILY calcium citrate 250 mg PO DAILY cholecalciferol (vitamin D3) 25 mcg PO DAILY clobetasol 0.05% 1 appl topical BID 2 weeks diltiazem HCl CD TAKE 1 CAPSULE BY MOUTH DAILY folic acid 0.4 mg PO DAILY lorazepam 1 mg PO DAILY PRN metoprolol succinate ER 50 mg PO DAILY 90 days omeprazole 40 mg PO BID pyridoxine (vitamin B6) 50 mg PO DAILY HPI Comments Details: The patient is a 64 year old right-handed male presenting with complaints of headaches and balance issues. He has a history of tension-type headaches correlated with bruxism, for which he utilizes a mouthguard. The frequency of headaches has reduced significantly since its use. The patient's history includes a past Lyme disease diagnosis, after which he noticed balance problems. His symptoms involve feeling off with sudden mov ements, attributed to a potential blood pressure issue rather than true vertiginous dizziness. He reports he has peripheral neuropathy, historically managed with vitamin B6 supplements. He also reports plantar fasciitis, previously treated with toe injections. He prefers non-pharmacologic approaches to headache management due to a dislike for medications. Family History - History of heart issues in family members Review of Systems - Neurological: Reports balance issues; denies true dizziness or vertigo. - Musculoskeletal: Denies musculoskeletal pain unrelated to plantar fasciitis. Headache Review - Frequency: Once a week, previously daily - Onset: Correlated with jaw clenching - Localization: Begins at the jaw, radiating to the head - Quality: Tension-type - Aggravating factors: Bruxism, stress - Alleviating factors: Mouthguard, jaw massage - Medication: Poor response to sumatriptan, occasional Tylenol or ibuprofen Medication History - Sumatriptan: Ineffective, no recollection of side effects - Tylenol/Ibuprofen: Used as needed for headache relief - Metoprolol: Currently prescribed for hypertension, possibly contributing to balance issues - Vitamin B6: Taken for peripheral neuropathy - Lorazepam: Used infrequently for anxiety symptoms Headache Lifestyle Factors - Hydration: Regular fluid intake, preference for low-sugar energy drinks - Sleep: Uses a mouthguard for bruxism affecting headaches Initial HPI 05/25/2024: Right-handed 63-yr-old male presents for new pt evaluation of headache disorder. Pt reports he has had headaches for at least 3 yrs, which started w/o known precipitating cause. He has 2 headache sub-types- a right stabbing temporal HAS and and a right pressure headache. He has tried acute tx's which have not helped- Sumatriptan 50mg, dilaudid, Tylenol, Ibuprofen, Fioricet- none of which have helped. He did see neurology in the past at [facility]- states had head imaging, which was normal. Was tx'd for Lyme dz in February 2024- s/s neck stiffness, intermittent fevers, headache- feeling betetr s/p 3 wk course of Doxy. States his above headache started prior to the Lyme infection. PMH and ROS are notable for:? General- tinnitus d/t service w/ high noise exposure. Musculoskeletal disorders or injury: has intermittent sharp non-radiating low back-hip pain- can last a few days. Tries to sleep straight to avoid waking up w/ a stiff neck. Mood d/o: Anxiety, Depression Resp: Has some SOB on exertion- such as when skiing. Allergies throughout the year. SILVERIO- managed by Dr Rivas- last PAP compliance report shows AHI 1/hr. CV disease: HTN HLD- well-controlled Clotting or hematology d/o: : h/o kidney stones Pertinent denials include: Vision changes- is photophobic s/p Lasix sx. Usual dizziness. History of concussion/head injury, Respiratory d/o, Clotting or hematology d/o, Endocrine d/o, metabolic d/o, History of seizure, syncope, or drop attacks, GI d/o, Constipation, Leg Cramps, Family history of migraine or other headache disorder Lifestyle considerations: Sleep routine: Usual bedtime: 9-11pm and wake-up time: 4-6am Sleep difficulties: Sleeps ok. Caffeine use: 1 cup of coffee per day Substance use: Alcohol- 4-5 beers if watching sports etc- ~4 days per week. Exercise:?Walks. 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 He is f/b the [facility]. Family planning: None Headache questionnaire:? Previous work-up: believes was done a few yrs ago at [facility] Types of headache disorders: 2 Typical headache characteristics: Prodrome symptoms: Denies Aura: Denies Pain intensity: mild-moderate Location, quality, characteristics: Often pressure right sided temporal/just the lateral aspect of right forehead, but sometimes can move across forehead into ronit temples. Associated symptoms: photophobia Postdrome: denies Triggers:No known triggers Time of day: Sometimes can wake up with headache, but no specific time of day Duration and Frequency: w/o tx lasts 1-2 hours, occurs ~5 x's per week. How does headache impact your life? He is able to do his usual activities. Typical stabbing headache: Severe sharp stabbing pain in right caodaism, comes on suddenly w/o provocation, may repeat after a few seconds, max 5 stabs in an episode. Usually 1 episode in a day, and occurs about once a month. It can happen w/wo his other headache. Current acute medication use/interventions: Tylenol, Ibuprofen, Fioricet (borrowed)- does not help. Current preventative medication use: Denies Non-pharmacological interventions: Sits down and rests, closes his eyes, rubs his temples. [facility] Medical History LFT elevation SILVERIO (obstructive sleep apnea) Obesity (BMI 30.0-34.9) GERD (gastroesophageal reflux disease) Hypertension Impaired glucose tolerance Surgical History H/O left knee surgery History of shoulder surgery History of cataract surgery Family History Mother Heart attack Father No problems noted. Brother No problems noted. Sister No problems noted. Sister No problems noted. Brother Heart attack Son No problems noted. Son No problems noted. Daughter No problems noted. Social History Housing: House Alcohol intake: current Alcohol intake frequency: a few times a week Comment: 3x a week 3-4 beers Patient Tobacco Use Status: Former Tobacco user Tobacco use type: Cigarette Years Smoked: Quit 1998 e-Cigarette/Vaping Use: Never Used Second Hand Smoke Exposure: No service: No Current occupational status: retired Current occupation: right hand dominant Cognitive needs: No Hearing needs: No Vision needs: Yes (reading glasses) Physical Exam Vital Signs: Last Vital Signs Pulse 60 12/02/24 13:55 BP 120/70 12/02/24 13:55 Pulse Ox 95 12/02/24 13:55 Oxygen Delivery Method Room Air 12/02/24 13:55 BMI result Body Mass Index 33.5 Const Orientation/consciousness: patient oriented x3 Resp Effort & Inspection: normal respiratory effort and able to speak in complete sentences Neuro General: patient oriented x3 Cranial nerves: Yes CN's II-XII intact bilaterally Cognition (Neuro): normal cognition Gait exam (Neuro): Normal gait present Motor exam (neuro): 5/5 motor strength present throughout Psych Appearance: grossly normal Mental Status: mental status grossly normal Speech and movement: Normal speech and movement present Affect: normal affect Attitude: cooperative Thought process: Normal thought process present Assessment & Plan Assessment & Plan (1) Headache: Code(s): R51.9 - Headache, unspecified Category: Medical (2) Stabbing headache: Comment: Episodes of sudden Right sided stabbing pain, w/ max 5 stabs per attack (entire episode < 5 minutes) w/o associated autonomic features. Code(s): G44.85 - Primary stabbing headache Category: Medical (3) Difficulty balancing: Code(s): R29.818 - Other symptoms and signs involving the nervous system Category: Medical (4) Anemia: Code(s): D64.9 - Anemia, unspecified Category: Medical Plan Discussion Notes During our consultation, we discussed the management of the patient's bruxism- related headaches, highlighting the benefit of the mouthguard. I advised consulting with cardiology regarding antihypertensive treatment that may affect balance. Dietary sodium intake was discussed, electrolyte replacement beverages can assist with orthostatic lightheadedness/dizziness. We talked about the potential need for balance-focused physical therapy if symptoms worsen. Laboratory tests have been planned to assess vitamin levels pertinent to his neuropathy history. Follow-up will be structured to reassess symptoms and adapt the treatment strategy if necessary. Patient was informed and verbally consented to the use of an ambient scribe for clinic note documentation during this visit. Discussed that both pt's headache s/s may be secondary to bruxism, cervical neck tightness. Pt has well-treated SILVERIO, thus I do not think this is r/t SILVERIO dx. It is possible that his current Amitriptyline use is minimizing his headache and it's associated symptoms, thus migraine w/o aura is still a possible etiology. Less suspicion for TA d/t pt has had headaches s/s for mx yrs w/o vision ch anges. However, will request any head imaging and labs (ESR, CRP) done through [facility] to assess for any possible secondary/alternate etiologies. Consider additional work-up upon review. For balance issues: * check labs for common etiologies * 16-24 oz electrolyte replacement beverages per day may be helpful. For headache, cervicalgia, and bruxism: * OTC Magnesium for headache, bruxism, muscle tightness. * Continue using the mouthguard for bruxism- in collaboration with dentist. * Ensure pillows are supportive of his neck. * Home cervical and upper body ROM and stretching. * Continue APAP- managed by Dr Rivas. * Sumatriptan at 100mg prn, MR gail's 1 (max 200mg/per day). May take w/ Tylenol or Ibuprofen. Pt to follow-up in 6 months or sooner prn.. Orders: Orders Vitamin B6 12/02/24 D64.9 - Anemia, unspecified, R29.818 - Other symptoms and signs involving the nervous system, G44.85 - Primary stabbing headache Homocysteine 12/02/24 D64.9 - Anemia, unspecified Methylmalonic Acid 12/02/24 D64.9 - Anemia, unspecified Vitamin B12 and Folate 12/02/24 D64.9 - Anemia, unspecified Medications: Discontinued prednisone Discontinued Reason: Patient Completed Course 4 tabs QD x 2 days then 3 tabs QD x 2 days then 2 tabs Qd x 2 days then 1 tab QD x 2 days PO daily; 20 tabs 0RF J45.909 - Unspecified asthma, uncomplicated, L40.9 - Psoriasis, unspecified Coding Level of Care Code Est Pt Level 4 (31801) Diagnoses Headache R51.9 Stabbing headache G44.85 Difficulty balancing R29.818 Anemia D64.9
[2024-12-02 13:55] VITALS: BP 120/70; PULSE 60; O2SAT 95; BMI 33.5
--- OUTSIDE RECORDS SUMMARY | 2024-12-02 17:03 | XMS_ITS | Continuity of Care Document ---
Author Name [facility] Organization [facility] Care Team Providers Care Quality Control Head Name Role Phone [facility] Unavailable Unavailable Problems Combined list of problems from Department of Defense and Veterans Affairs facilities. It does not include entries that were removed or entered in error. Problem Status Onset Date Problem Type Date of Resolution Comments Source Alcohol intake above recommended sensible limits Active Condition [facility] Panic disorder Active Condition [facility] IELD Recurrent major depressive disorder Active Condition [facility] Diagnosis: ICD-10-CM F33.1 Major depressive disorder, recurrent, moderate Active Diagnosis [facility] Diagnosis: ICD-10-CM F41.8 Other specified anxiety disorders Active Diagnosis [facility] Diagnosis: ICD-10-CM Z02.89 Encounter for other administrative examinations Active Diagnosis [facility] [place] [facility] Medications Combined list of outpatient medications from Department of Defense and Veterans Affairs facilities.Medications provided include 1) outpatient medications from the last 15 months, and 2) patient-reported medications. Medication Details Route Status Patient Instructions Prescription Expires Prescription Number Last Dispense Date Ordering Provider Order Date Order Qty Source AMITRIPTYLI NE HCL 25MG TAB TAKE ONE TABLET BY MOUTH AT BEDTIME FOR SLEEP AND PAIN ORAL ACTIVE 08/01/2025 [id number] 5 Charla HIDALGO 2023 90 [facility] IELD AMITRIPTYLI NE HCL 25MG TAB TAKE ONE TABLET BY MOUTH AT BEDTIME FOR SLEEP AND PAIN ORAL DISCONT INUED 01/15/2025 [id number] 4 Charla HIDALGO 2023 90 [facility] IELD AMITRIPTYLI NE HCL 25MG TAB TAKE ONE TABLET BY MOUTH AT BEDTIME FOR SLEEP AND PAIN ORAL DISCONT INUED 10/16/2024 [id number] 4 Charla HIDALGO 2023 90 [facility] IELD AMITRIPTYLI NE HCL 25MG TAB TAKE ONE TABLET BY MOUTH AT BEDTIME FOR SLEEP AND PAIN ORAL DISCONT INUED (EDIT) 08/21/2024 [id number] 3 Charla HIDALGO G 2022 30 [place] BUPROPION HCL 150MG 24HR TAB,SA TAKE THREE TABLETS BY MOUTH ONCE DAILY FOR DEPRESSI ON ORAL ACTIVE 10/15/2025 [id number] 5 Charla HIDALGO G 2024 270 [place] BUPROPION HCL 150MG 24HR TAB,SA TAKE THREE TABLETS BY MOUTH ONCE DAILY FOR DEPRESSI ON ORAL DISCONT INUED 04/16/2025 [id number] 4 Charla HIDALGO G 2023 270 [place] BUPROPION HCL 150MG 24HR TAB,SA TAKE THREE TABLETS BY MOUTH ONCE DAILY FOR DEPRESSI ON ORAL DISCONT INUED 04/14/2024 [id number] 4 Chrala HIDALGO G 2023 270 [place] BUPROPION HCL 150MG 24HR TAB,SA TAKE THREE TABLETS BY MOUTH ONCE DAILY FOR DEPRESSI ON ORAL DISCONT INUED 01/14/2024 [id number] Charla HIDALGO G 2023 270 [place] BUPROPION HCL 150MG 24HR TAB,SA TAKE THREE TABLETS BY MOUTH ONCE DAILY ORAL DISCONT INUED (EDIT) 09/18/2024 [id number] Charla HIDALGO G 2022 90 [place] LORAZEPAM 1MG TAB TAKE ONE TABLET BY MOUTH ONCE DAILY NEEDED FOR ANXIETY ORAL ACTIVE 04/16/2025 [id number] 5 Charla HIDALGOEN G 2024 15 [place] LORAZEPAM 1MG TAB TAKE ONE TABLET BY MOUTH ONCE DAILY NEEDED FOR ANXIETY ORAL DISCONT INUED 07/17/2024 [id number] 4 Charla HIDALGOEN G 2023 15 [place] Allergies, Adverse Reactions, Alerts Combined list of allergies from Department of Defense and Veterans Affairs facilities. It does not include entries that were removed or entered in error. Substance Category Reaction Severity Reaction type Status Date Reported Comments Source CLINDAMYCIN Propensity to adverse reactions to drug (finding) Eruption active 3 [facility] [place] [facility] IBUPROFEN Propensity to adverse reactions to drug (finding) Itching active 3 [facility] [place] [facility] Immunizations Combined list of available immunizations from the Department of Defense and Veterans Affairs facilities. Immunization Series Date Given Administered By Site Reaction Lot Number CVX Code Drug Supervisor Prepress Status Comments Source COVID-19 (Qgiv), MRNA, LNP-S, PF, 30 MCG/0.3 ML DOSE 2 2020 208 complet ed PFR; [id number]; 1 [facility] COVID-19 (PFIZER), MRNA, LNP-S, PF, 30 MCG/0.3 ML DOSE 1 2020 208 complet ed PFR; [id number]; 1 [facility] Novel influenza-H1N 1-09, injectable 1 2009 Unknown, Provider [id number] [employer] (NOV) complet ed Novel influenza -[id number], injectabl e [facility] influenza virus vaccine, live, attenuated, for intranasal use 1 2008 Unknown, Provider [id number] [employer] (MED) complet ed influenza virus vaccine, live, attenuate d, for intranasa l use [facility] influenza virus vaccine, live, attenuated, for intranasal use 1 2007 Unknown, Provider [id number] 111 [employer] (MED) complet ed influenza virus vaccine, live, attenuate d, for intranasa l use [facility] influenza virus vaccine, live, attenuated, for intranasal use 1 2007 Unknown, Provider [id number] 111 [employer] (MED) complet ed influenza virus vaccine, live, attenuate d, for intranasa l use [facility] influenza virus vaccine, split virus (incl. purified surface antigen)-reti red CODE 1 2005 Unknown, Provider [id number] 15 Sanofi Pasteur ([facility]) complet ed influenza virus vaccine, split virus (incl. purified surface antigen)- retired CODE DoD influenza virus vaccine, split virus (incl. purified surface antigen)-reti red CODE 1 2004 Unknown, Provider [id number] 15 Sanofi Pasteur ([facility]) complet ed influenza virus vaccine, split virus (incl. purified surface antigen)- retired CODE DoD typhoid Vi capsular polysaccharid e vaccine 1 2003 Unknown, Provider [id number] Sanofi Pasteur ([facility]) complet ed typhoid Vi capsular polysacch aride vaccine DoD influenza virus vaccine, whole virus 1 2002 Unknown, Provider [id number] 16 Arina ([facility]) complet ed influenza virus vaccine, whole virus DoD tuberculin skin test; purified protein derivative solution, intradermal 1 2002 Unknown, Provider [id number] [facility] ([facility]) complet ed tuberculi n skin test; purified protein derivativ e solution, intraderm al DoD tetanus and diphtheria toxoids, adsorbed, preservative free, for adult use (2 Lf of tetanus toxoid and 2 Lf of diphtheria toxoid) 1 2002 Unknown, Provider [id number] 09 Sanofi Pasteur ([facility]) complet ed tetanus and diphtheri a toxoids, adsorbed, preservat deanne free, for adult use (2 Lf of tetanus toxoid and 2 Lf of diphtheri a toxoid) DoD influenza virus vaccine, whole virus 1 2001 Unknown, Provider [id number] 16 Sanofi Pasteur ([facility]) complet ed influenza virus vaccine, whole virus DoD typhoid Vi capsular polysaccharid e vaccine 1 2001 Unknown, Provider [id number] Sanofi Pasteur ([facility]) complet ed typhoid Vi capsular polysacch aride vaccine DoD influenza virus vaccine, whole virus 1 2000 Unknown, Provider [id number] 16 Sanofi Pasteur ([facility]) complet ed influenza virus vaccine, whole virus DoD tuberculin skin test; purified protein derivative solution, intradermal 1 2000 Unknown, Provider [id number] [address] [facility] P[facility] ([facility]) complet ed tuberculi n skin test; purified protein derivativ e solution, intraderm al DoD influenza virus vaccine, whole virus 1 2000 Unknown, Provider [id number] 16 Arina ([facility]) complet ed influenza virus vaccine, whole virus DoD typhoid vaccine, parenteral, other than acetone-kille d, dried 1 1999 Unknown, Provider [id number] [facility] Paste[facility] ([facility]) complet ed typhoid vaccine, parentera l, other than acetone-k illed, dried DoD tuberculin skin test; purified protein derivative solution, intradermal 1 1999 Unknown, Provider [id number] 96 Justin (CON) complet ed tuberculi n skin test; purified protein derivativ e solution, intraderm al DoD typhoid vaccine, parenteral, other than acetone-kille d, dried 1 1999 Unknown, Provider 41 () complet ed typhoid vaccine, parentera l, other than acetone-k illed, dried DoD anthrax vaccine 3 1999 Unknown, Provider [id number] 24 [facility] [employer] [place] ([facility]) complet ed anthrax vaccine DoD anthrax vaccine 2 1999 Unknown, Provider [id number] [employer] [place] ([facility]) complet ed anthrax vaccine DoD anthrax vaccine 1 1999 Unknown, Provider [id number] [facility] [employer] [place] ([facility]) complet ed anthrax vaccine DoD hepatitis A vaccine, adult dosage 2 1999 Unknown, Provider [id number] Merck (MSD) complet ed hepatitis A vaccine, adult dosage DoD influenza virus vaccine, whole virus 1 1998 Unknown, Provider [id number] 16 Arina ([facility]) complet ed influenza virus vaccine, whole virus DoD meningococcal polysaccharid e vaccine (MPSV4) 1 1998 Unknown, Provider [id number] 32 Sanofi Pasteur ([facility]) complet ed meningoco ccal polysacch aride vaccine (MPSV4) DoD hepatitis A vaccine, adult dosage 1 1998 Unknown, Provider [id number] Merck (MSD) complet ed hepatitis A vaccine, adult dosage DoD measles, mumps and rubella virus vaccine 1 1998 Unknown, Provider [id number] 03 Justin (CON) complet ed measles, mumps and rubella virus vaccine DoD influenza virus vaccine, whole virus 1 1997 Unknown, Provider [id number] 16 Sanofi Pasteur ([facility]) complet ed influenza virus vaccine, whole virus DoD influenza virus vaccine, whole virus 1 1996 Unknown, Provider 16 () complet ed influenza virus vaccine, whole virus DoD typhoid vaccine, parenteral, acetone-kille d, dried (U.S. ) 2 1996 Unknown, Provider 53 () complet ed typhoid vaccine, parentera l, acetone-k illed, dried ([place].S. ) DoD tetanus and diphtheria toxoids, adsorbed, preservative free, for adult use (2 Lf of tetanus toxoid and 2 Lf of diphtheria toxoid) 1 1992 Unknown, Provider 09 () complet ed tetanus and diphtheri a toxoids, adsorbed, preservat deanne free, for adult use (2 Lf of tetanus toxoid and 2 Lf of diphtheri a toxoid) DoD yellow fever vaccine 1 1992 Unknown, Provider 37 () complet ed yellow fever vaccine DoD trivalent poliovirus vaccine, live, oral 1 1982 Unknown, Provider 02 () complet ed trivalent polioviru s vaccine, live, oral DoD cholera vaccine, unspecified formulation 1 1982 Unknown, Provider 26 () complet ed cholera vaccine, unspecifi ed formulati on DoD Encounters Combined list of: 1) Encounters from Department of Veterans Affairs facilities going backup to the last 18 months, not all VA inpatient encounters are included; 2) Encounters from the Department of Defense facilities going backup to 280 months. Location Location Details Encounter Type Encounter Number Reason For Visit Attending Provider ADM Date DC Date Status Disposition Source [facility] [place] [facility] Outpatient Encounter [id number] Diagnos is: ICD-10- CM Z02.89 Encount er for other adminis trative examina tions SENA RUSHING 06/06 [place] [facility] [place] [facility] [place] [facility] Outpatient Encounter [id number] Diagnos is: ICD-10- CM Z02.89 Encount er for other adminis trative examina tions VAUGHN PANCHAL 06/17 [facility] [place] [facility] [place] [facility] Outpatient Encounter [id number] VAUGHN PANCHAL 06/17 [place] [facility] [place] [facility] [place] PSYCH DIAGNOSTIC EVALUATION [id number] Diagnos is: ICD-10- CM F41.8 Other specifi ed anxiety disorde BLAIRE Saldaña 07/16 [facility] TELEHEALTH FACILITY FEE [id number] Diagnos is: ICD-10- CM F33.1 Major depress deanne disorde r, recurre nt, moderat e SHOBANDE,O DANNYLE 08/21 [facility] OFF/OP CNSLTJ NEW/EST MOD 40 [id number] Diagnos is: ICD-10- CM F33.1 Major depress deanne disorde r, recurre nt, moderat e HIDALGO, EVEN G 08/21 [facility] TELEHEALTH FACILITY FEE [id number] Diagnos is: ICD-10- CM F33.1 Major depress deanne disorde r, recurre nt, moderat e CASIE RAYMOND 09/18 [facility] OFFICE O/P EST LOW 20-29 MIN [id number] Diagnos is: ICD-10- CM F33.1 Major depress deanne disorde r, recurre nt, moderat e HIDALGO,ST EVEN G 09/18 [facility] TELEHEALTH FACILITY FEE [id number] Diagnos is: ICD-10- CM F33.1 Major depress deanne disorde r, recurre nt, moderat e [facility]16 [facility] OFFICE O/P EST LOW 20 MIN [id number] Diagnos is: ICD-10- CM F33.1 Major depress deanne disorde r, recurre nt, moderat e HIDALGO, EVEN G 10/16 [facility] Outpatient Encounter [id number] 01/06 [facility] TELEHEALTH FACILITY FEE [id number] Diagnos is: ICD-10- CM F33.1 Major depress deanne disorde r, recurre nt, moderat e SHOBANDE,O [place] 01/14 [facility] OFFICE O/P EST LOW 20 MIN [id number] Diagnos is: ICD-10- CM F33.1 Major depress deanne disorde r, recurre nt, moderat e HIDALGO,ST EVEN G 01/14 [facility] TELEHEALTH FACILITY FEE [id number] Diagnos is: ICD-10- CM F33.1 Major depress deanne disorde r, recurre nt, moderat e SHOBANDE,O [place] 04/15 [facility] OFFICE O/P EST LOW 20 MIN [id number] Diagnos is: ICD-10- CM F33.1 Major depress deanne disorde r, recurre nt, moderat e HIDALGO,ST EVEN G 04/15 [facility] [place] [facility] Outpatient Encounter [id number] 07/31 [facility] [place] [facility] TELEHEALTH FACILITY FEE [id number] Diagnos is: ICD-10- CM F33.1 Major depress deanne disorde r, recurre nt, moderat e SHOBANDE,O [place] 10/14 [facility] OFFICE O/P EST LOW 20 MIN [id number] Diagnos is: ICD-10- CM F33.1 Major depress deanne disorde r, recurre nt, moderat e HIDALGO,ST EVEN G 10/14 [facility] Social History Combined list of available smoking, tobacco, and other social history from Department of Defense and Veterans Affairs facilities. Social History Type Response [facility] WVIS VA-TOBACCO FORMER USER 024 [facility] History of tobacco use VA-TOBACCO QUIT 1 5 YRS OR MORE 01/15/2024 WEIR This section is an empty social history section. DoD Plan of Care List of future care activities from Department of Veterans Affairs facilities. Additional future care activities may be listed in the Assessment and Plan section. Date/Time Care Activity Care Activity Detail Facili ty 04/14/2025 AMBULATORY - PSYCHIATRY AM[facility] 04/14/2025 [facility] - [facility]
--- OUTSIDE RECORDS SUMMARY | 2024-12-02 17:03 | XMS_ITS | Encounter Summary ---
Author Organization [facility] Address [address] [place] [address] Care Team Providers Care Landcare Officer Name Role Phone Orquidea Hill MD Primary Care Provider Unavail able Reason for Visit * Reason Onset Date Comments President Practicing Urologist Feedback 01/08/2022 General Surgery Encounter Details Date Type Department Care Team Description 01/08/2022 Telephone Adult Medicine - [address] [address] Orquidea Hill MD President Practicing Urologist Feedback (General Surgery) Social History Tobacco Use Types Packs/Day Years Used Date Smoking Tobacco: Former Cigarettes 1 20 Q uit: 12/12/1998 Smokeless Tobacco: Never Alcohol Use Standard Drinks/Week Comments Yes 0 (1 standard drink = 0.6 oz pur e alcohol) 5 days out of week Sex Assigned at Date Recorded Not on file documented as of this encounter Miscellaneous Notes * Telephone Encounter - Michelle Ferrera - 03/13/2022 4:55 PM EDT Unable to process insurance referral patient has an outside PCP and I believe that the patient is no longer part of [facility] * Telephone Encounter - Orlin Castle - 01/08/2022 3:10 PM EDT What insurance does the patient have today? Payor: [employer] / Plan: HMO $21/$31 [place] BALDY [id number] / Product Type: HMO [id number] Effective 07/07/09: BCBS will not retro referral requests over 90 days. If request is for this please instruct patient to call the 800# on their insurance card to appeal. Do not submit a request. Referrals cannot be processed if the insurance is not accurate. If the insurance listed above in red is NO BILLING INFORMATION FOUND FOR THIS ENCOUTNER The patients correct insurance must be obtained and registered in [facility] or their referral can not be processed. Is this a retro request? YES If yes for what date of service do you need the retro referral? 11/07/21 Who is calling to request this referral? Md office If the caller is not the patient, what is their name? N/A Ask the patient WHO referred them to this specialty: Patient spoke to Erika and was told they wouldorder a referral to this specialty FIRST and LAST NAME of SPECIALIST PATIENT is seeing: Dr.Sarah Rivas What specialty is this? General Surgery DIAGNOSIS Patient is being seen for (Not a body part or a procedure): Left lower rectus sheath softtissue attenuation , suggestion hematoma , meassure 5.6 x 9.1 x 14 cms , which extends to the suprapubic region Have you seen this SPECIALIST for this PROBLEM/DX before?NO If YES, when: Have you checked REVIEW or the APPT DESK to see if this referral has already been done or has visits left? YES Is this visit:Initial Visit Address of Specialist: [address] [place] [address] [address] Phone # of Specialist:[phone] Fax #: (if applicable):[phone] Does patient have an appointment scheduled?: NO Date of appointment- (including a retro-request): Is this appointment related to: Not MVA, WC or Surgery related documented in this encounter Plan of Treatment Not on file documented as of this encounter Visit Diagnoses Not on filedocumented in this encounter Care Teams Landcare Officer Relationship Specialty Start Date End Date Orquidea Hill MD PCP - General Internal Medicine 12/10/18 documented as of this encounter
--- OUTSIDE RECORDS SUMMARY | 2024-12-02 17:03 | XMS_ITS | Clinical Summary ---
Author Organization [facility] it Address [address] [place] [address] Care Team Providers Care Career Representative Name Role Phone Orquidea Hill MD Primary Care Provider + [phone] Surgical History Surgery Date Site/Laterality Comments OTHER SURGICAL HISTORY PROCEDURE: OR ENDOSCOPY UPPER SMALL INTESTINE OTHER SURGICAL HISTORY PROCEDURE: OR EGD BALLOON DILATION ESOPHAGUS <30 MM DIAM; COMMENT: x 2 OTHER SURGICAL HISTORY PROCEDURE: COLONOSCOPY, SURGICAL KNEE ARTHROSCOPY W/ MENISCAL REPAIR PROCEDURE: OR ARTHROSCOPY KNEE W/MENISCUS RPR MEDIAL/LATERAL; COMMENT: left side SHOULDER ARTHROSCOPY PROCEDURE: OR SURGICAL ARTHROSCOPY SHOULDER W/LSS&RESCJ ADS; COMMENT: right side EYE SURGERY PROCEDURE: HISTORICAL EYE SURGERY; COMMENT: intraocular lens placement Medical History Medical History Date Comments Pure hypercholesterolemia 12/12/2018 DX:Pur e hypercholesterolemia Essential hypertension 12/12/2018 DX:Essent ial hypertension Gastroesophageal reflux disease 12/12/2018 DX:Gastroesophageal reflux disease Anxiety and depression 12/12/2018 DX:Anxiet y and depression ETOH abuse 12/12/2018 DX:ETOH abuse; C OMMENT: 6 pack beers at least 5 or 6 nights a week Obesity (BMI 30-39.9) 12/12/2018 DX:Obesity (BMI 30-39.9) Family History Relation Name Status Comments Mother Alive Social History Tobacco Use Types Packs/Day Years Used Date Smoking Tobacco: Former Cigarettes Q uit: 12/12/1998 Smokeless Tobacco: Never Alcohol Use Standard Drinks/Week Comments Yes 0 (1 standard drink = 0.6 oz pur e alcohol) Sex and Gender Information Value Date Recorded Sex Assigned at Not on file Legal Sex Male 9:43 PM EST Gender Identity Not on file Sexual Orientation Not on file Obstetrics History Plan of Treatment Health Maintenance Due Date Last Done Comments DTaP,Tdap,and Td Vaccines (1 - Tdap) 1979 Hepatitis A Vaccines (1 of 2 - Risk 2-dose series) 1979 Pneumococcal Vaccine: 50+ Ye ars (1 of 1 - PCV) 2010 Zoster Vaccines (1 of 2) 2010 Cholesterol Screening (Lipid Panel) 09/16/2022 Colorectal Cancer Screening: Colonoscopy 09/16/2022 Depression Screening 09/16/2022 HIV Screening 09/16/2022 Hepatitis C Screening 09/16/2022 Social Influencers of Health Screening 09/16/2022 Hypertension/CHF/CAD Annual BMP Blood Test 09/20/2022 COVID-19 Vaccine ( - 2023-2 5 season) 2024 Influenza Vaccine (#1) 2024 RSV Immunization Patients 60 + Years Old (1 - 1-dose 75+ series) 2035 HIB Vaccines Aged Out No longer eligi ble based on patient's age to complete this topic HPV Vaccines Aged Out No longer eligi ble based on patient's age to complete this topic Hepatitis B Vaccines Aged Out No long er eligible based on patient's age to complete this topic IPV Vaccines Aged Out No longer eligi ble based on patient's age to complete this topic MMR Vaccines Aged Out No longer eligi ble based on patient's age to complete this topic Meningococcal ACWY Vaccine Aged Out N o longer eligible based on patient's age to complete this topic Meningococcal B Vacine Aged Out No lo nger eligible based on patient's age to complete this topic Pneumococcal Vaccine: Pediat rics (0 to 5 Years) and At-Risk Patients (6 to 64 Years) Aged Out No longer eligible b ased on patient's age to complete this topic RSV Immunization Patients Un alyse 20 months Aged Out No longer eligible b ased on patient's age to complete this topic Varicella Vaccines Aged Out No longer eligible based on patient's age to complete this topic Advance Directives Documents on File Type Date Recorded Patient Finish Inspector Expl anation Health Care Decision (hx) 12/02/2019 AD JOHNSON DIRECTIVE Health Care Decision (hx) 12/02/2019 AD JOHNSON DIRECTIVE Health Care Decision (hx) 12/02/2019 AD JOHNSON DIRECTIVE Health Care Decision (hx) 12/02/2019 AD JOHNSON DIRECTIVE Care Teams Career Representative Relationship Specialty Start Date End Date Orquidea Hill MD PCP - General Internal Medicine 12/10/18
--- OUTSIDE RECORDS SUMMARY | 2024-12-02 17:03 | XMS_ITS | Encounter Summary ---
Author Organization [facility] Address [address] [place] [address] Care Team Providers Care Fitting Room Attendant Name Role Phone Donte Hill MD Primary Care Provider Unavail able Reason for Referral * Non DANYELL (Routine) - Authorized/Booked Specialty Diagnoses / Procedures Referred By Contac t Referred To Contact Allergy & Immunology / Allergy Procedures REFERRAL TO ALLERGY Donte Hill MD [address] [place] [id number] Arcelia Pink MD [address] [place] [id number] Referral ID Status Reason Start Date Expiration Date V isits Requested Visits Authorized [id number] Authorized/ Booked 12/07/2019 12/06/2020 12 12 Reason for Visit * Reason Onset Date Comments Allergic Reaction 12/07/2019 Encounter Details Date Type Department Care Team Description 12/07/2019 Telephone Adult Medicine [address] [address] Donte Hill MD Allergic Reaction Social History Tobacco Use Types Packs/Day Years Used Date Smoking Tobacco: Former Cigarettes 1 20 Q uit: 12/12/1998 Smokeless Tobacco: Never Alcohol Use Standard Drinks/Week Comments Yes 0 (1 standard drink = 0.6 oz pur e alcohol) 5 days out of week Sex Assigned at Date Recorded Not on file documented as of this encounter Miscellaneous Notes * Telephone Encounter - Donte Hill MD - 12/07/2019 3:38 PM EST Patient has appointment with me on December 20 I can do a referral to print decorator ahead of time if needed * Telephone Encounter - Nilsa Ayala R.N. - 12/07/2019 3:15 PM EST Spoke with Ny again and the patient wants to keep current appointment and try to go to work on the . She is asking if we can start a referral to allergy before he comes for his follow up Please advise * Telephone Encounter - Nilsa Ayala R.N. - 12/07/2019 2:18 PM EST Spoke with the : Was in ICU for severe allergic reaction. Over the weekend his tongue swelled up again and today hisleft upper lip was swollen. dentist stated was a reaction ER doctor believe it was medicine reaction possibly ibuprofen, the others thought it was the clinda. She is asking to move follow up appt sooner and asking for referral to allergy. She will call backto schedule 12/16 after confirming appt with her as offered at 10:30 * Telephone Encounter - Jass Marquis - 12/07/2019 1:27 PM EST Symptoms patient is having: Pt calling asking for a nurse to return call , pt has had a allergic reaction and would like him seen lyubov. Ask patients who call with respiratory symptoms and/or a fever if they have traveled outside of [place] recently. If yes, do not book. Send to triage If pain or injury related was it due to an accident at work or from a motor vehicle accident? NO If yes, gather 3rd democrat insurance information Date of accident/Injury: How long has patient had these symptoms?: PCP: DONTE HILL Payor: [employer] / Plan: POS $20/30 SKYLAR RITTER [id number] THNE TRADITNAL / Product Type: POS [id number] documented in this encounter Plan of Treatment Not on file documented as of this encounter Visit Diagnoses Not on filedocumented in this encounter Care Teams Fitting Room Attendant Relationship Specialty Start Date End Date Donte Hill MD PCP - General Internal Medicine 12/10/18 documented as of this encounter
--- OUTSIDE RECORDS SUMMARY | 2024-12-02 17:03 | XMS_ITS | Patient Health Record ---
Author Organization [facility] Address [address] [place] [address] Care Team Providers Care Employee Services Manager Name Role Phone Po Tracy YEUNG Primary Care Provider Dayron Wakefield [phone] ALLERGIES No Known Allergies REASON FOR REFERRAL No Information MEDICATIONS Medication SIG (Take, Route, Frequency, Duration) Notes Start Date End Date Status Metoprolol Tartrate 50 MG 1 tablet with food Orally Twice a day for 30 day(s) Active LORazepam 0.5 MG 1 tablet at bedtime as needed Orally Once a day Active Omeprazole 40 MG 1 Orally Twice a day for 30 day(s) Active Atorvastatin Calcium 20 MG 1 tablet Oral ly Once a day for 30 day(s) Active Diltiazem HCl CR 180 MG/24HR 1 capsule Orally Once a day for 30 day(s) Active Omeprazole 20 MG 1 capsule 30 minutes before morning meal Orally Once a day for 30 day(s) Active buPROPion HCl 150 MG as directed Orally Active Escitalopram Oxalate 5 MG Oral for 5 Active Calcium Citrate Acti ve Vitamin B6 Active Vitamin D3 Active Aspirin 81 81 MG 1 tablet Orally Once a day for 30 day(s) Active Folic Acid 400 MCG 1 tablet Orally Once a day for 30 day(s) Active IMMUNIZATIONS Vaccine Route Administration Date Status Comme nts Influenza Unknown 07/26/2021 Administered SOCIAL HISTORY Tobacco Use: Social History Observation Description Date Details (start date - stop date) Former Smoker NA - NA Sex Assigned At : Social History Observation Description Sex Assigned At Unknown Tobacco Use/Smoking Question Answer Notes Patient is a former smoker How long has it been since you last smoked? > 10 years Alcohol Screen Question Answer Notes Did you have a drink contain ing alcohol in the past year? Yes How often did you have a dri nk containing alcohol in the past year? 2 to 3 times a week (3 points) How many drinks did you have on a typical day when you were drinking in the past year? 3 or 4 drinks (1 point) How often did you have 6 or more drinks on one occasion in the past year? Never (0 point) Points 4 Interpretation Positive PROBLEMS Problem Type ICD Code Onset Dates Problem Status W/U Status Risk SNOMED Code Notes Problem Encounter for screening for malignant neoplasm of colon (Z12.11) Active confirmed 352276212 Problem Dysphagia (R13.10) Active confirmed Dys phagia (56556319) Problem Gastroesophageal reflux (K21.9) Active confirmed Esophageal reflux finding (654854437) Problem Diverticulosis of colon (K57.30) Active confirmed Diverticulosi s of colon (823949810) Problem Esophageal dysphagia (R13.19) Active confirmed 51660604 PLAN OF TREATMENT Future Test Test Name Order Date UPPER GI ENDOSCOPY BALLOOON DILATION OF ESOPH 08/10/2021 COLONOSCOPY 08/10/2021 Insurance Providers Payer Name Payer Address Payer Phone Subscriber Number Group Number Insured Name Patient Relationship to Insured Coverage Start Date Coverage End Date [facility] (REFERRA L NEEDED) [address] [place] [phone] [id number] DAVID HUDSON Self - patient is the insured MEDICAL (GENERAL) HISTORY Medical History History ICD Code Hx of kidney stones Sleep apnea- CPAP machine Hypertension Denies TN,DM,CVA,Lung disease,renal dise ase Hyperlipidemia Anxiety He describes a negative screening colono scopy [address] Austin SANCHEZ and a history of what s ounds like an esophageal stricture for which he has undergone 2 previous upper endoscopies with dilations at least 10 years ago Surgical History Surgery Date(Month/Year) knee left right shoulder Cataracts/Lens implants
--- OUTSIDE RECORDS SUMMARY | 2024-12-02 17:03 | XMS_ITS | Clinical Summary ---
Author Organization [facility] Address [address] [place] [address] Care Team Providers Care Dry Cleaning Supervisor Name Role Phone Orquidea Hill MD Primary Care Provider Unavail able Allergies Active Allergy Reactions Severity Noted Date Comments Clindamycin Anaphylaxis High 12/21/2019 Ibuprofen Anaphylaxis High 12/21/2019 Medications Medication Sig Dispensed Refills Start Date End Date Status omeprazole (PRILOSEC) 20 MG capsule Take 20 mg by mouth daily. 0 Active atorvastatin (LIPITOR) 20 MG tablet Take 20 mg by mouth daily. 0 Active folic acid (FOLVITE) 400 MCG tablet Take 400 mcg by mouth daily. 0 Active Cholecalciferol (VITAMIN D-3 OR) Take by mouth. 0 Acti ve Calcium Citrate-Vitamin D (CALCIUM CITRATE + OR) Take by mouth. 0 Active diltiazem (DILTIAZEM CD) 180 MG 24 hr capsule Take 1 Cap by mouth daily for 180 days. 90 Cap 1 06/23/2019 Active metoprolol (TOPROL-XL) 50 MG 24 hr tablet Take 1 Tab by mouth daily for 180 days. 180 Tab 1 06/23/2019 Active aspirin 81 MG tablet Take 81 mg by mouth daily. 0 Active oxycodone (OXY-IR) 5 MG capsuleIndications:He matoma of rectus sheath, initial encounter 1 every 6 hours as needed 10 capsule 0 11/10/2021 Active Active Problems Problem Noted Date Pre-diabetes 12/30/2019 Pure hypercholesterolemia 12/12/2018 Essential hypertension 12/12/2018 Gastroesophageal reflux disease 12/13/19 19 Anxiety and depression 12/12/2018 ETOH abuse 12/12/2018 Overview: 6 pack beers at least 5 or 6 nights a week Obesity (BMI 30-39.9) 12/12/2018 Immunizations Name Administration Dates Next Due Influenza Flu (PT Reported) 08/22/2020 Family History Relation Name Status Comments Mother Alive Social History Tobacco Use Types Packs/Day Years Used Date Smoking Tobacco: Former Cigarettes 1 20 Q uit: 12/12/1998 Smokeless Tobacco: Never Alcohol Use Standard Drinks/Week Comments Yes 0 (1 standard drink = 0.6 oz pur e alcohol) 5 days out of week Sex Assigned at Date Recorded Not on file Last Filed Vital Signs Vital Sign Reading Time Taken Comments Blood Pressure 142/83 11/07/2021 3:45 PM EST Pulse 71 11/07/2021 3:45 PM EST Temperature 36.9 ??C (98.4 ??F) 11/07/2021 3:45 PM ES T Respiratory Rate 16 12/30/2019 11:01 AM EDT Oxygen Saturation - - Inhaled Oxygen Concentration - - Weight 110.7 kg (244 lb) 11/07/2021 3:45 PM EST Height 182.9 cm (6') 11/07/2021 3:45 PM EST Body Mass Index 33.09 11/07/2021 3:45 PM EST Plan of Treatment Health Maintenance Due Date Last Done Comments Covid-19 Vaccine (#1) 1960 HEPATITIS C SCREENING 1978 DTAP/TDAP/TD (1 - Tdap) 1979 CHOLESTEROL SCREENING 1980 COLON CANCER SCREENING 2010 SHINGLES VACCINE (1 of 2) 2010 INFLUENZA (#1) 2024 08/22/2020, 07/07 (External Completion of Vaccination per patient) BMI CHECK/ADVISE 10/07/2024 04/06/2020, 10/2019, 12/30/2019, Additional history exists PNEUMOCOCCAL VACCINE FOR HIG H RISK PATIENTS (#1) 2025 Care Teams Dry Cleaning Supervisor Relationship Specialty Start Date End Date Orquidea Hill MD PCP - General Internal Medicine 12/10/18
--- OUTSIDE RECORDS SUMMARY | 2024-12-02 17:03 | XMS_ITS | Encounter Summary ---
Author Name [facility] ([place] Organization [facility] [place] Address [address] [place] [address] Support Name Relationship Address Phone UNK, UNK [...] PRESCRIPT ION RX Oct 07, 2022 THPRX [id number] DIDIER HUDSON PATIENT OPTUM RX PRESCRIPT ION RX Oct 07, 2022 THPRX [id number] DIDIER HUDSON PATIENT [facility] PLAN [facility] USP [address] [facility] [id number] DIDIER HUDSON PATIENT [facility] MAGDA MONDRAGON E 2020 [facility] [id number] DIDIER HUDSON PATIENT Selected Encounter This section includes the information on record at [place] for the Encounter. Date/Time Encounter Type Encounter Description Reason Pro vider Source Jan 07, 2024 10:00 AM Outpatient Encounter [facility] Encounter Template Text not used by [place] Plan of Treatment: Future Appointments (+ 6 months) and Future Tests (+/- 45 days) The Plan of Treatment section includes future care activities for the patient from all VA treatmentfacilities. This section includes future appointments and future orders which are active, pending or scheduled. Future Appointments This section includes appointments that were scheduled to occur 6 months from the date of the Encounter, up to a maximum of 20 appointments. The data comes from all [place] treatment [facility]. Appointment Date/Time Appointment Type Appointme nt Facility Name Jan 15, 2024 10:30 AM AMBULATORY - PSYCHIATRY [facility] Jan 15, 2024 10:31 AM [facility] Apr 15, 2024 10:00 AM [facility] Apr 15, 2024 10:01 AM AMBULATORY PSYCHIATRY [facility] Encounter Notes: All associated encounter notes This section contains the clinical notes associated to the Encounter. Date/Time Encounter Note(s) Provider Source Jan 07, 2024 10:15 AM CLERICAL NOTE: LOCAL TITLE: APPOINTMENT NO SHOW STANDARD TITLE: CLERICAL NOTE DATE OF NOTE: JAN 07, 2024@10:15 ENTRY DATE: JAN 07, 2024@10:15:24 AUTHOR: MAGAN ROJSA COSIGNER: DARCIE UNGER URGENCY: STATUS: COMPLETED Patient Name: DAVID HUDSON Patient SSN: [id number] Date and time of Appointment No show : 01/07/24 10:00 PATIENT PHONE - PHONE NUMBER [CELLULAR] - Patient's medical record was reviewed. Follow-up actions were determined and initiated: Please check/complete as applies: [X]Telephoned Directly [ ]Re-scheduled for next available appt [X]Sent a N0-show letter ( must call for appointment) [ ]Other (Emergent/Overbook, etc.): Additional Comments: None Future Clinic Visits 01/15/2024 10:30 CWM/SO/CVT/IND 01/PAT 01/15/2024 10:31 CWM/SO/CVT/PSYCHMD/PRO /es/ MAGAN ROJAS CERTIFIED SHORTHAND REPORTER Signed: 01/07/2024 10:15 /evangelista/ SNEHA SEGOVIA [facility] Cosigned: 01/07/2024 12:31 MAGAN ROJASFIELD
--- OUTSIDE RECORDS SUMMARY | 2024-12-02 17:03 | XMS_ITS | Encounter Summary ---
Author Organization [facility] Address [address] [place] [address] Care Team Providers Care Aircraft Technician Name Role Phone Orquidea Hill MD Primary Care Provider Unavail able Encounter Details Date Type Department Care Team Description 02/11/2019 Transfer Records Medical Records [address] [place] [address] Abstract, Provider Social History Tobacco Use Types Packs/Day Years Used Date Smoking Tobacco: Former Cigarettes 1 20 Q uit: 12/12/1998 Smokeless Tobacco: Never Alcohol Use Standard Drinks/Week Comments Yes 0 (1 standard drink = 0.6 oz pur e alcohol) 5 days out of week Sex Assigned at Date Recorded Not on file documented as of this encounter Plan of Treatment Not on file documented as of this encounter Visit Diagnoses Not on filedocumented in this encounter Care Teams Aircraft Technician Relationship Specialty Start Date End Date Orquidea Hill MD PCP - General Internal Medicine 12/10/18 documented as of this encounter
--- OUTSIDE RECORDS SUMMARY | 2024-12-02 17:03 | XMS_ITS | Encounter Summary ---
Author Name [facility] Organization [facility] Address [address] [place] [address] Support Name Relationship Address Phone UNK, UNK [...] PRESCRIPT ION RX Oct 07, 2022 THPRX [id number] DIDIER HUDSON PATIENT OPTUM RX PRESCRIPT ION RX Oct 07, 2022 THPRX [id number] DIDIER HUDSON PATIENT [facility] PLAN USP 2020 [facility] [id number] DIDIER HUDSON PATIENT [facility] MAGDA MONDRAGON E 2020 [id number] [phone] DIDIER HUDSON PATIENT Selected Encounter This section includes the information on record at [place] for the Encounter. Date/Time Encounter Type Encounter Description Reason Provider Source Jan 15, 2024 10:31 AM OFFICE O/P EST LOW 20 MIN [facility] - IND ICD-10-CM F33.1 Major depressive disorder, recurrent, moderate MOE HIDALGO Encounter Template Text not used by [facility] Assessments - Encounter Diagnoses This section includes the primary and secondary diagnoses documented for the Encounter. Date/Time Primary/Secondary Diagnosis Diagnosis Name Provider Source Jan 15, 2024 10:25 AM PRIMARY Major depressive disorder, recurrent, moderate MOE HIDALGO [facility] Jan 15, 2024 10:25 AM SECONDARY Alcohol abuse counseling and surveillance of alcoholic MOE HIDALGO [place] Jan 15, 2024 10:25 AM SECONDARY Panic disorder [episodic paroxysmal anxiety] MOE HIDALGO [place] Plan of Treatment: Future Appointments (+ 6 months) and Future Tests (+/- 45 days) The Plan of Treatment section includes future care activities for the patient from all [place] [facility]. This section includes future appointments and future orders which are active, pending or scheduled. Future Appointments This section includes appointments that were scheduled to occur 6 months from the date of the Encounter, up to a maximum of 20 appointments. The data comes from all [place] treatment facilities. Appointment Date/Time Appointment Type Appointme nt Facility Name Apr 15, 2024 10:00 AM AMBULATORY - PSYCHIATRY [facility] Apr 15, 2024 10:01 AM AMBULATORY PSYCHIATRY [facility] Social History: Smoking Status (Most current) and Tobacco Use (All prior to encounter date) This section includes the most current, and the historical, smoking and tobacco- related health factors from the [place] facility where the Encounter took place. Current Smoking Status This section includes the most current smoking, or tobacco-related health factor, from the [place] facility where the Encounter took place. Date/Time Current Smoking Status Comment Stacia ity Jan 15, 2024 10:31 AM [place]-TOBACCO FORMER USER [facility] Tobacco Use History This section includes a history of the smoking, or tobacco-related health factors, that were collected on or before the date of the Encounter. The data comes from the [place] facility where the Encounter took place. Date/Time Smoking Status/Tobacco Use Comment F acility Jan 15, 2024 10:31 AM MS-TOBACCO QUIT 15 YRS OR MORE [facility] Encounter Notes: All associated encounter notes This section contains the clinical notes associated to the Encounter. 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 Since [...] smoking cessation was helpful CURRENT MEDICATIONS: per [facility] omeprazole (PRILOSEC) 20 MG capsule atorvastatin (LIPITOR) [...] daughter, too. 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 No trauma exposure in . Discharged in 2010. The experience was all right and he reports he enjoyed a lot of it. 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 Legal: (x ) n/a; history [...] OP VISIT: reports I'm doing pretty well. There is a difference. No thoughts of problems or trying to hurt myself, almost past. I still have a short temper, it's better. Its still a 6 out of 10, its not real bad. No changes made. PRESENTING SYMPTOMS AND CONDITION ON TODAY'S VISIT: reports I'm doing well . Only c/o is headaches, PCP Rx sumatriptan prn. Generally better. I don't have any thoughts of harming myself REVIEW OF SYSTEMS MENTAL HEALTH: SLEEP: improved MOOD: depressed not a real lot, maybe once a week. I can get active and forget about it ANXIETY: 3-4 panic attacks the past month not really bad ANGER/IRRITABILITY/AGGRESSION: not as bad SUBSTANCE USE: Alcohol: 4-6 beers, at least 3 or 4 days per week, reduced Illegal/non-prescribed drugs: denies TOBACCO: Non-smoker, quit 1998 LUISITO/HYPOMANIA: None evident PSYCHOTIC FEATURES: None evident Suicidal Thoughts/Intent/plan: denies Social Status/ Stressors: no changes CURRENT PSYCH meds: Wellbutrin 450mg, AMI 25mg, Ativan 1mg daily prn #12 ADVERSE EFFECTS: dry mouth MENTAL STATUS EXAMINATION - Appearance and behavior: [...] sleep, anxiety and pain. No changes indicated. Vanlue does not see his alcohol use as a problem, not interested in reducing. i. Severity of Illness: ()none (x)mild ( [...] for a follow-up appointment with myself in: 12 weeks, sooner if needed Additional Follow-Up instructions: 1. Reinforced: If urgent treatment is needed, call [phone] or go to the nearest Emergency Room 2. To schedule or change an appointment, inquire about medication refills, etc: call office number during normal office hours Tobacco Use Screening: The patient is a former tobacco user. The patient quit fifteen or more years ago. Medication Reconciliation: Outpatient: Has the patient been taking medications as documented in the EMLR? No: Discrepencies were identified. See below. Essential Medication List for Review used to complete this medication reconciliation. INCLUDED IN THIS LIST: Alphabetical list of active outpatient prescriptions dispensed from this [facility] (local) and dispensed from another [place] or [facility] facility (remote) as well as inpatient orders (local, pending and active), local clinic medications, locally documented non-VA medications, and local prescriptions that have or been discontinued in the past 90 days. - Discrepancies were identified, addressed, and discussed with the patient/caregiver at this encounter. - All changes in medications, including all non-VA/Herbal/OTC medications were entered into CPRS. Changes: he is taking sumatriptan by community MD - If there were any medications the patient should no longer take, they were discontinued. - The patient/caregiver was instructed to update this list, discard old lists, and take this list to the next appointment, whether with a VA or non-VA provider. Alcohol Use Screen (AUDIT-C): Alcohol Screen: SCREEN FOR ALCOHOL (AUDIT-C) An alcohol screening test (AUDIT-C) was positive (score=8). 1. How often did you have a drink containing alcohol in the past year? Consider a drink to be a 12 ounce can or bottle of regular beer, 8 ounces of malt liquor, a 5 ounce glass of table wine, or a 1.5 ounce shot of liquor (like scotch, gin, or vodka). Two to three times per week 2. How many drinks containing alcohol did you have on a typical day when you were drinking in the past year? Five or six drinks 3. How often did you have six or more drinks on one occasion in the past year? Weekly /es/ MOE HIDALGO M.D. Signed: 01/15/2024 10:26 MOE HIDALGO [place]
--- OUTSIDE RECORDS SUMMARY | 2024-12-02 17:03 | XMS_ITS | Encounter Summary ---
Author Name [facility] [place] Organization [facility] [place] [place] Address [address] [place] [address] Support Name Relationship Address Phone UNK, UNK [...] PRESCRIPT ION RX Oct 07, 2022 THPRX [id number] DIDIER HUDSON PATIENT [facility] RX PRESCRIPT ION RX Oct 07, 2022 THPRX [id number] DIDIER HUDSON PATIENT [facility] PLAN USP 2020 [facility] [id number] DIDIER HUDSON PATIENT [facility] PLAN [facility] MAGDA MONDRAGON E 2020 [id number] [phone] DIDIER HUDSON PATIENT Selected Encounter This section includes the information on record at [place] for the Encounter. Date/Time Encounter Type Encounter Description Reason Provider Source Oct 14, 2024 10:01 AM OFFICE O/P EST LOW 20 MIN [facility] - IND ICD-10-CM F33.1 Major depressive disorder, recurrent, moderate MOE HIDALGO Encounter Template Text not used by [place] Assessments - Encounter Diagnoses This section includes the primary and secondary diagnoses documented for the Encounter. Date/Time Primary/Secondary Diagnosis Diagnosis Name Provider Source Oct 14, 2024 10:21 AM PRIMARY Major depressive disorder, recurrent, moderate MOE HIDALGO [facility] Oct 14, 2024 10:21 AM SECONDARY Alcohol abuse counseling and surveillance of alcoholic MOE HIDALGO [facility] Oct 14, 2024 10:21 AM SECONDARY Panic disorder [episodic paroxysmal anxiety] MOE HIDALGO [facility] Social History: Smoking Status (Most current) and Tobacco Use (All prior to encounter date) This section includes the most current, and the historical, smoking and tobacco- related health factors from the [place] facility where the Encounter took place. Current Smoking Status This section includes the most current smoking, or tobacco-related health factor, from the [place] facility where the Encounter took place. Date/Time Current Smoking Status Comment Facil ity Jan 15, 2024 10:31 AM [place]-TOBACCO FORMER USER [facility] Tobacco Use History This section includes a history of the smoking, or tobacco-related health factors, that were collected on or before the date of the Encounter. The data comes from the [place] facility where the Encounter took place. Date/Time Smoking Status/Tobacco Use Comment F acility Jan 15, 2024 10:31 AM [place]-TOBACCO QUIT 15 YRS OR MORE [facility] Encounter Notes: All associated encounter notes This [...] a CVT visit, patient was in the [facility] and seen by myself remotely from my home via synchronous telehealth equipment operated from the clinic with staff assistance. gave their permission to hold visit via this equipment. 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 Since [...] smoking cessation was helpful CURRENT MEDICATIONS: per [facility] omeprazole (PRILOSEC) 20 MG capsule atorvastatin (LIPITOR) [...] daughter, too. 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 No trauma exposure in . Discharged in 2010. The experience was all right and he reports he enjoyed a lot of it. 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 Legal: (x ) n/a; history [...] per week, reduced Illegal/non-prescribed drugs: cannabis gummies [facility] TOBACCO: Non-smoker, quit 1998 LUISITO/HYPOMANIA: None evident [...] If urgent treatment is needed, call 211, 298, 911 or go to the nearest Emergency Room 2. To schedule or change an appointment, inquire about medication refills, etc: call office number during normal office hours Diagnoses: Recurrent major depressive disorder (SCT 28107025) - Major depressive disorder, recurrent, moderate (ICD-10-CM F33.1) (Primary) Alcohol intake above recommended sensible limits (SCT 258714220) - Alcohol abuse counseling and surveillance of alcoholic (ICD-10-CM Z71.41) Panic disorder (SCT 208445620) - Panic disorder [episodic paroxysmal anxiety] (ICD-10-CM F41.0) Suicide Screen: C-SSRS Screening [place]-Suicide Severity Rating Scale (C-SSRS Screener) 1. Over [...] HIDALGO M.D. Signed: 10/14/2024 10:22 MOE HIDALGO [facility]
--- OUTSIDE RECORDS SUMMARY | 2024-12-02 17:03 | XMS_ITS | Encounter Summary ---
Author Name [facility] [place] [facility] [place] Organization [place] Address [address] [place] [address] Support Name Relationship Address Phone UNK, UNK [...] PRESCRIPT ION RX Oct 07, 2022 THPRX [id number] [phone] DIDIER HUDSON PATIENT [facility] RX PRESCRIPT ION RX Oct 07, 2022 THPRX [id number] [phone] DIDIER HUDSON PATIENT [facility] PLAN USP 2020 [facility] [id number] DIDIER HUDSON PATIENT [facility] MAGDA MONDRAGON E 2020 [id number] 74 DIDIER HUDSON PATIENT Selected Encounter This section includes the information on record at [place] for the Encounter. Date/Time Encounter Type Encounter [...] Major depressive disorder, recurrent, moderate MOE HIDALGO [facility] Apr 15, 2024 10:13 AM SECONDARY Alcohol abuse counseling and surveillance of alcoholic MOE HIDALGO [facility] Apr 15, 2024 10:13 AM SECONDARY Panic disorder [episodic paroxysmal anxiety] MOE HIDALGO Plan of Treatment: Future Appointments (+ 6 months) and Future Tests (+/- 45 days) The Plan of Treatment section includes future care activities for the [facility] [place] [facility] This section includes future appointments and future orders which are active, pending or scheduled. Future Appointments This section includes appointments that were scheduled to occur 6 months from the date of the Encounter, up to a maximum of 20 appointments. The data comes from all [place] treatment facilities. Appointment Date/Time Appointment Type Appointme nt Facility Name Oct 14, 2024 10:00 AM AMBULATORY - PSYCHIATRY [facility] Oct 14, 2024 10:01 AM AMBULATORY PSYCHIATRY [facility] Social History: Smoking Status (Most current) and Tobacco Use (All prior to encounter date) This section includes the most current, and the historical, smoking and tobacco- related health factors from the [place] facility where the Encounter took place. Current Smoking Status This section includes the most current smoking, or tobacco-related health factor, from the [place] facility where the Encounter took place. Date/Time Current Smoking Status Comment Stacia ity Jan 15, 2024 10:31 AM [place]-TOBACCO FORMER USER [facility] Tobacco Use History This section includes a history of the smoking, or tobacco-related health factors, that were collected on or before the date of the Encounter. The data comes from the [place] facility where the Encounter took place. Date/Time Smoking Status/Tobacco Use Comment F acility Jan 15, 2024 10:31 AM [place]-TOBACCO QUIT 15 YRS OR MORE [facility] Encounter Notes: All associated encounter notes This [...] MH Consult 07/16/23 noting: SUMMARY AND IMPRESSIONS: Van Horn is a 63 year old , , [...] TIME OF INITIAL VISIT WITH MYSELF 08/21/23: Van Horn reports he was in treatment at [facility], psychiatrist retired, last seen in 2020. Since [...] smoking cessation was helpful CURRENT MEDICATIONS: per [facility] omeprazole (PRILOSEC) 20 MG capsule atorvastatin (LIPITOR) [...] daughter, too. 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 No trauma exposure in . Discharged in 2010. The experience was all right and he reports he enjoyed a lot of it. 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 Legal: (x ) n/a; history of INITIAL ASSESSMENT/ DIAGNOSIS AND RECOMMENDATIONS: presents with chronic/recurrent depression and panic disorder without agoraphobia. Encouraged to resume daily/ near-daily walking and to reduce alcohol consumption. Agrees to plan to: re-trial on Wellbutrin, stop Seroquel and start instead on AMI for sleep/pain, allow prn Ativan for panic attacks. NOTED AT LAST OP VISIT: reports I'm doing well . Only c/o is headaches, PCP Rx sumatriptan prn. Generally better. I don't have any thoughts of harming myself . No changes made. PRESENTING SYMPTOMS AND CONDITION ON TODAY'S VISIT: Van Horn reports I'm doing pretty well. Everythings about [...] If urgent treatment is needed, call 211, 248, 911 or go to the nearest Emergency Room 2. To schedule or change an appointment, inquire about medication refills, etc: call office number during normal office hours /evangelista/ MOE HIDALGO M.D. Signed: 04/15/2024 10:13 MOE [place]
--- OUTSIDE RECORDS SUMMARY | 2024-12-02 17:03 | XMS_ITS | Clinical Summary ---
Author Organization [facility] Address [address] [place] [address] Care Team Providers Care Marketing Production Specialist Name Role Phone Oskar Aguilar MD Primary Care Provider [phone] Allergies No known active allergies Medications Medication Sig Dispensed Refills Start Date End Date Status buPROPion (WELLBUTRIN) 100 MG tablet Take 100 mg by mouth 2 (two) times a day. 0 Active atorvastatin (LIPITOR) tablet 20 mg Take 20 mg by mouth daily. 0 Active omeprazole (PRILOSEC) 20 MG capsule Take 20 mg by mouth daily. 0 Active diltiazem (CARDIZEM CD) 120 MG 24 hr capsule Take 120 mg by mouth daily. 0 Active folic acid (FOLVITE) tablet 1 mg Take 1 mg by mouth daily. 0 Active aspirin EC 81 MG tablet Take 81 mg by mouth daily. 0 Active vitamin B-6 (PYRIDOXINE) 25 MG tablet Take 25 mg by mouth daily. 0 Active Active Problems Problem Noted Date Diagnosed Date Acute pain of left knee 09/13/2017 Chronic right shoulder pain 05/09/2017 Social History Tobacco Use Types Packs/Day Years Used Date Smoking Tobacco: Never Assessed Sex and Gender Information Value Date Recorded Sex Assigned at Not on file Gender Identity Not on file Sexual Orientation Not on file Last Filed Vital Signs Vital Sign Reading Time Taken Comments Blood Pressure - - Pulse - - Temperature - - Respiratory Rate - - Oxygen Saturation - - Inhaled Oxygen Concentration - - Weight 95.3 kg (210 lb) 05/09/2017 1:11 PM EDT Height 180.3 cm (5' 11 ) 05/09/2017 1:11 PM EDT Body Mass Index 29.29 05/09/2017 1:11 PM EDT Plan of Treatment Health Maintenance Due Date Last Done Comments Hepatitis C Screening 1960 COVID-19 Vaccine (#1) 1960 Depression Screening 1972 Preventative Health Evaluation 1978 DTap / Tdap / Td (1 - Tdap) 1979 Colon Cancer Screening (Colonoscopy) 2005 Shingrix-Zoster Vaccine (1 of 2) 2010 Influenza Vaccine (#1) 2024 Pneumococcal Vaccine (1 of 1 - PCV) 2025 RSV Adult > 60+ Yrs or Pregn ant (1 - 1-dose 75+ series) 2035 Hepatitis B Vaccines Aged Out No long er eligible based on patient's age to complete this topic Pneumococcal Vaccine Aged Out No long er eligible based on patient's age to complete this topic RSV Ped < 20 months Aged Out No longe r eligible based on patient's age to complete this topic Insurance Payer Benefit Plan / Group Subscriber ID Effective Dates Phone Address [facility] [id number] [facility] t [address] [place] [address] [facility] Care Teams Marketing Production Specialist Relationship Specialty Start Date End Date Oskar Aguilar MD [address] [place] [address] [place] [address] PCP - General Internal Medicine 04/30/17
--- OUTSIDE RECORDS SUMMARY | 2024-12-02 17:03 | XMS_ITS | Encounter Summary ---
Author Organization [facility] | [facility] Address [address] [place] [address] Care Team Providers Care Corrective Therapy Aide Teacher Name Role Phone Orquidea Hill MD Primary Care Provider Unavail able Encounter Details Date Type Department Care Team Description 12/02/2019 Hospital Medical Records [address] [place], [place] [id number] [place] [address] Social History Tobacco Use Types Packs/Day Years [...] on filedocumented in this encounter Care Teams Corrective Therapy Aide Teacher Relationship Specialty Start Date End Date Orquidea Hill MD PCP - General Internal Medicine 12/10/18 documented as of this encounter"
== END 2024-12-02 14:48 | disposition home or self-care (01) ==
PROVIDERS: PCP Internal Medicine; Visit Provider Nurse Practitioner Family
DX: G44.85 Primary stabbing headache (principal); R29.818 Other symptoms and signs involving the nervous system; D64.9 Anemia, unspecified
CPT/HCPCS: 99214

== ENCOUNTER 2024-12-02 13:51 | Outpatient (REF) | payer OTHER, SELFPAY ==
--- OUTSIDE RECORDS SUMMARY | 2024-12-02 18:18 | XMS_ITS | Clinical Summary ---
Author Organization [facility] Address [address] [place] [address] Care Team Providers Care Slot Floorperson Name Role Phone Orquidea Hill MD Primary [...] H RISK PATIENTS (#1) 2025 Care Teams Slot Floorperson Relationship Specialty Start Date End Date Orquidea Hill MD PCP - General Internal Medicine 12/10/18
--- OUTSIDE RECORDS SUMMARY | 2024-12-02 18:18 | XMS_ITS | Encounter Summary ---
Author Organization [facility] Address [address] [place] [address] Care Team Providers Care General Car Supervisor Yard Name Role Phone Orquidea Hill MD Primary Care Provider Unavail able Encounter Details Date Type Department Care Team Description 02/11/2019 Transfer Records Medical Records [address] [place] [address] Abstract, Provider Social History Tobacco Use Types [...] on filedocumented in this encounter Care Teams General Car Supervisor Yard Relationship Specialty Start Date End Date Orquidea Hill MD PCP - General Internal Medicine 12/10/18 documented as of this encounter
--- OUTSIDE RECORDS SUMMARY | 2024-12-02 18:18 | XMS_ITS | Clinical Summary ---
Author Organization [facility] Address [address] [place] [address] Care Team Providers Care Dogman/Woman Name Role Phone Oskar Aguilar MD Primary Care Provider [phone] Allergies No known active allergies Medications Medication [...] Group Subscriber ID Effective Dates Phone Address [facility] [id number] [facility] t [address] [place] [address] [facility] [place] Dogman/Woman Relationship Specialty Start Date End Date Oskar Aguilar MD [address] [place] [address] [place] [address] PCP - General Internal Medicine 04/30/17
--- OUTSIDE RECORDS SUMMARY | 2024-12-02 18:18 | XMS_ITS | Encounter Summary ---
Author Organization [facility] Address [address] [place] [address] Care Team Providers Care Ground Transportation Operator Name Role Phone Orquidea Hill MD Primary Care Provider Unavail able Encounter Details Date Type Department Care Team Description 12/02/2019 Hospital Medical Records [address] [place], [place] [id number] [place] [address] Social History Tobacco Use Types Packs/Day Years [...] on filedocumented in this encounter Care Teams Ground Transportation Operator Relationship Specialty Start Date End Date Orquidea Hill MD PCP - General Internal Medicine 12/10/18 documented as of this encounter"
--- OUTSIDE RECORDS SUMMARY | 2024-12-02 18:18 | XMS_ITS | Encounter Summary ---
Author Organization [facility] Address [address] [place] [address] Care Team Providers Care Manager Mechanical Maintenance Name Role Phone Orquidea Hill MD Primary Care Provider Unavail able Reason for Visit * Reason Onset Date Comments Medication 11/10/2021 Encounter Details Date Type Department Care Team Description 11/10/2021 Telephone General Surgery - [address] [place] [address] Anahi Tucker MD [address] [place] [id number] Medication Social History Tobacco Use Types Packs/Day Years Used Date Smoking Tobacco: Former Cigarettes 1 20 Q uit: 12/12/1998 Smokeless Tobacco: Never Alcohol Use Standard Drinks/Week Comments Yes 0 (1 standard drink = 0.6 oz pur e alcohol) 5 days out of week Sex Assigned at Date Recorded Not on file COVID-19 Exposure Response Date Recorded In the last month, have you been in contact with someone who was confirmed or suspected to have Coronavirus / COVID-19? No / Unsure 11/07/2021 3:41 PM EST documented as of this encounter Miscellaneous Notes * Telephone Encounter - Lurdes Bose L.P.N. - 11/10/2021 12:[address] Clarke refilled script for the patient. Patient advised. * Telephone Encounter - Lurdes Bose L.P.N. - 11/10/2021 12:00 PM EST Patient with large rectus sheath hematoma . Seen by provider 11/07/21. Halo message forwarded to provider to advise. * Telephone Encounter - Cheryl Khan - 11/10/2021 11:41 AM EST Rcvd call from pt, he would like to know if he can be prescribed anything for the pain due to his injury. documented in this encounter Plan of Treatment Not on file documented as of this encounter Visit Diagnoses Not on filedocumented in this encounter Care Teams Manager Mechanical Maintenance Relationship Specialty Start Date End Date Orquidea Hill MD PCP - General Internal Medicine 12/10/18 documented as of this encounter
--- OUTSIDE RECORDS SUMMARY | 2024-12-02 18:18 | XMS_ITS | Continuity of Care Document ---
Author Name [facility] Organization [facility] Care Team Providers Care Early Morning Babysitter Name Role Phone [facility] Unavailable Unavailable Problems Combined list of problems from Department of Defense and Veterans Affairs facilities. It does not include entries that were removed or entered in error. Problem Status Onset Date Problem Type Date of Resolution Comments Source Alcohol intake above recommended sensible limits [facility] Panic disorder Active Condition [facility] IELD Recurrent major depressive disorder Active Condition [place] Diagnosis: ICD-10-CM F33.1 Major depressive disorder, recurrent, moderate Active Diagnosis [place] Diagnosis: ICD-10-CM F41.8 Other specified anxiety disorders Active Diagnosis [facility] Diagnosis: ICD-10-CM Z02.89 Encounter for other administrative examinations Active Diagnosis [place] [facility] [place] [facility] Medications Combined [...] FOR SLEEP AND PAIN ORAL ACTIVE 08/01/2025 [id number] 5 Charla HIDALGO 2023 90 [facility] IELD AMITRIPTYLI NE HCL 25MG TAB TAKE ONE TABLET BY MOUTH AT BEDTIME FOR SLEEP AND PAIN ORAL DISCONT INUED 01/15/2025 [id number] 4 Charla HIDALGO 2023 90 [facility] IELD AMITRIPTYLI NE HCL 25MG TAB TAKE ONE TABLET BY MOUTH AT BEDTIME FOR SLEEP AND PAIN ORAL DISCONT INUED 10/16/2024 [id number] Charla HIDALGO 2023 90 [facility] IELD AMITRIPTYLI NE HCL 25MG TAB TAKE ONE TABLET BY MOUTH AT BEDTIME FOR SLEEP AND PAIN ORAL DISCONT INUED (EDIT) 08/21/2024 [id number] 3 Charla HIDALGO G 2022 30 [place] BUPROPION HCL 150MG 24HR TAB,SA TAKE THREE TABLETS BY MOUTH ONCE DAILY FOR DEPRESSI ON ORAL ACTIVE 10/15/2025 [id number] 5 Charla HIDALGO G 2024 270 [place] BUPROPION HCL 150MG 24HR TAB,SA TAKE THREE TABLETS BY MOUTH ONCE DAILY FOR DEPRESSI ON ORAL DISCONT INUED 04/16/2025 [id number] 4 Charla HIDALGO G 2023 270 [place] BUPROPION HCL 150MG 24HR TAB,SA TAKE THREE TABLETS BY MOUTH ONCE DAILY FOR DEPRESSI ON ORAL DISCONT INUED 04/14/2024 [id number] 4 Charla HIDALGO G 2023 270 [place] BUPROPION HCL 150MG 24HR TAB,SA TAKE THREE TABLETS BY MOUTH ONCE DAILY FOR DEPRESSI ON ORAL DISCONT INUED 01/14/2024 [id number] 4 Charla HIDALGO G 2023 270 [place] BUPROPION HCL 150MG 24HR TAB,SA TAKE THREE TABLETS BY MOUTH ONCE DAILY ORAL DISCONT INUED (EDIT) 09/18/2024 [id number] 3 Charla HIDALGO G 2022 90 [place] LORAZEPAM 1MG TAB TAKE ONE TABLET BY MOUTH ONCE DAILY NEEDED FOR ANXIETY ORAL ACTIVE 04/16/2025 [id number] 5 Charla HIDALGOEN G 2024 15 [place] LORAZEPAM 1MG TAB TAKE ONE TABLET BY MOUTH ONCE DAILY NEEDED FOR ANXIETY ORAL DISCONT INUED 07/17/2024 [id number] 4 Charla HIDALGOEN G 2023 15 [place] Allergies, Adverse Reactions, Alerts Combined list of allergies from Department of Defense and Veterans Affairs facilities. It does not include entries that were removed or entered in error. Substance Category Reaction Severity Reaction type Status Date Reported Comments Source CLINDAMYCIN Propensity to adverse reactions to drug (finding) Eruption active 3 [facility] [place] [facility] IBUPROFEN Propensity to adverse reactions to drug (finding) Itching active 3 [facility] [place] [facility] Immunizations Combined list of available immunizations from the Department of Defense and Veterans Affairs facilities. Immunization Series Date Given Administered By Site Reaction Lot Number CVX Code Drug Silk Soaker Status Comments Source COVID-19 (Muchasa), MRNA, LNP-S, PF, 30 MCG/0.3 ML DOSE 2 2020 208 complet ed PFR; [id number]; [facility] COVID-19 (PFIZER), MRNA, LNP-S, PF, 30 MCG/0.3 ML DOSE 1 2020 208 complet ed PFR; [id number]; 1 [facility] Novel influenza-H1N 1-09, injectable 1 2009 Unknown, Provider [id number] [place]. (NOV) complet ed Novel influenza -[id number], injectabl e [facility] influenza virus vaccine, live, attenuated, for intranasal use 1 2008 Unknown, Provider [id number] [employer] (MED) complet ed influenza virus vaccine, live, attenuate d, for intranasa l use [facility] influenza virus vaccine, live, attenuated, for intranasal use 1 2007 Unknown, Provider [id number] 111 [employer] (MED) complet ed influenza virus vaccine, live, attenuate d, for intranasa l use [facility] influenza virus vaccine, live, attenuated, for intranasal use 1 2007 Unknown, Provider [id number] 111 [employer] (MED) complet ed influenza virus vaccine, live, attenuate d, for intranasa l use [facility] influenza virus vaccine, split virus (incl. purified surface antigen)-reti red CODE 1 2005 Unknown, Provider [id number] 15 Sanofi Pasteur ([facility]) complet ed influenza virus vaccine, split virus (incl. purified surface antigen)- retired CODE DoD influenza virus vaccine, split virus (incl. purified surface antigen)-reti red CODE 1 2004 Unknown, Provider [id number] 15 Sanofi Pasteur ([facility]) complet ed influenza virus vaccine, split virus (incl. purified surface antigen)- retired CODE DoD typhoid Vi capsular polysaccharid e vaccine 1 2003 Unknown, Provider [id number] Sanofi Pasteur ([facility]) complet ed typhoid Vi capsular polysacch aride vaccine DoD influenza virus vaccine, whole virus 1 2002 Unknown, Provider [id number] 16 Arina ([facility]) complet ed influenza virus vaccine, whole virus DoD tuberculin skin test; purified protein derivative solution, intradermal 1 2002 Unknown, Provider [id number] 96 [facility] complet ed tuberculi n skin test; purified protein derivativ e solution, intraderm al DoD tetanus and diphtheria toxoids, adsorbed, preservative free, for adult use (2 Lf of tetanus toxoid and 2 Lf of diphtheria toxoid) 1 2002 Unknown, Provider [id number] 09 Sanofi Pasteur ([facility]) complet ed tetanus and diphtheri a toxoids, adsorbed, preservat deanne free, for adult use (2 Lf of tetanus toxoid and 2 Lf of diphtheri a toxoid) DoD influenza virus vaccine, whole virus 1 2001 Unknown, Provider [id number] 16 Sanofi Pasteur ([facility]) complet ed influenza virus vaccine, whole virus DoD typhoid Vi capsular polysaccharid e vaccine 1 2001 Unknown, Provider [id number] Sanofi Pasteur ([facility]) complet ed typhoid Vi capsular polysacch aride vaccine DoD influenza virus vaccine, whole virus 1 2000 Unknown, Provider [id number] 16 Sanofi Paste[employer] ([facility]) complet ed influenza virus vaccine, whole virus DoD tuberculin skin test; purified protein derivative solution, intradermal 1 2000 Unknown, Provider [id number] 96 [facility]) complet ed tuberculi n skin test; purified protein derivativ e solution, intraderm al DoD influenza virus vaccine, whole virus 1 2000 Unknown, Provider [id number] 16 Arina ([facility]) complet ed influenza virus vaccine, whole virus DoD typhoid vaccine, parenteral, other than acetone-kille d, dried 1 1999 Unknown, Provider [id number] 41 [facility]) complet ed typhoid vaccine, parentera l, other than acetone-k illed, dried DoD tuberculin skin test; purified protein derivative solution, intradermal 1 1999 Unknown, Provider [id number] 96 Justin (CON) complet ed tuberculi n skin test; purified protein derivativ e solution, intraderm al DoD typhoid vaccine, parenteral, other than acetone-kille d, dried 1 1999 Unknown, Provider 41 () complet ed typhoid vaccine, parentera l, other than acetone-k illed, dried DoD anthrax vaccine 3 1999 Unknown, Provider [id number] 24 [facility] [employer] [place] ([facility]) complet ed anthrax vaccine DoD anthrax vaccine 2 1999 Unknown, Provider [id number] 24 [employer] [place] ([facility]) complet ed anthrax vaccine DoD anthrax vaccine 1 1999 Unknown, Provider [id number] 24 [facility] [employer] [place] ([facility]) complet ed anthrax vaccine DoD hepatitis A vaccine, adult dosage 2 1999 Unknown, Provider [id number] 52 Merck (MSD) complet ed hepatitis A vaccine, adult dosage DoD influenza virus vaccine, whole virus 1 1998 Unknown, Provider [id number] 16 Arina ([facility]) complet ed influenza virus vaccine, whole virus DoD meningococcal polysaccharid e vaccine (MPSV4) 1 1998 Unknown, Provider [id number] 32 Sanofi Pasteur ([facility]) complet ed meningoco ccal polysacch aride vaccine (MPSV4) DoD hepatitis A vaccine, adult dosage 1 1998 Unknown, Provider [id number] 52 Merck (MSD) complet ed hepatitis A vaccine, adult dosage DoD measles, mumps and rubella virus vaccine 1 1998 Unknown, Provider [id number] 03 Justin (CON) complet ed measles, mumps and rubella virus vaccine DoD influenza virus vaccine, whole virus 1 1997 Unknown, Provider [id number] 16 Sanofi Pasteur ([facility]) complet ed influenza [...] ADM Date DC Date Status Disposition Source [place] [facility] [place] [facility] Outpatient Encounter [id number] Diagnos is: ICD-10- CM Z02.89 Encount er for other adminis trative examina tions SENA RUSHING 06/06 [place] [facility] [place] [facility] [place] [facility] Outpatient Encounter [id number] Diagnos is: ICD-10- CM Z02.89 Encount er for other adminis trative examina tions VAUGHN PANCHAL 06/17 [place] [facility] [place] [facility] [place] [facility] Outpatient Encounter [id number] VAUGHN PANCHAL 06/17 [place] [facility] [place] [facility] [place] LD PSYCH DIAGNOSTIC EVALUATION [id number] Diagnos is: ICD-10- CM F41.8 Other specifi ed anxiety disorde BLAIRE Saldaña 07/16 [facility] FEE 49409-7.63 [id number] Diagnos is: ICD-10- CM F33.1 Major depress deanne disorde r, recurre nt, moderat e SHOBANDE,O DANNYLE 08/21 [facility] OFF/OP CNSLTJ NEW/EST MOD 40 42789-8.63 [id number] Diagnos is: ICD-10- CM F33.1 Major depress deanne disorde r, recurre nt, moderat e HIDALGO, EVEN G 08/21 [facility] FEE 20943-0.63 [id number] Diagnos is: ICD-10- CM F33.1 Major depress deanne disorde r, recurre nt, moderat e CASIE RAYMOND 09/18 [facility] OFFICE O/P EST LOW 20-29 MIN 88366-0.63 [id number] Diagnos is: ICD-10- CM F33.1 Major depress deanne disorde r, recurre nt, moderat e HIDALGO,ST EVEN G 09/18 [facility] FEE 66882-4.63 [id number] Diagnos is: ICD-10- CM F33.1 Major depress deanne disorde r, recurre nt, moderat e [facility] OFFICE O/P EST LOW 20 MIN 41272-3.63 [id number] Diagnos is: ICD-10- CM F33.1 Major depress deanne disorde r, recurre nt, moderat e HIDALGO, EVEN G 10/16 [facility] Outpatient Encounter [id number] 01/06 [facility] FEE 66736-5.63 [id number] Diagnos is: ICD-10- CM F33.1 Major depress deanne disorde r, recurre nt, moderat e SHOBANDE,O LUBOWALE 01/14 [facility] OFFICE O/P EST LOW 20 MIN 34181-4.63 [id number] Diagnos is: ICD-10- CM F33.1 Major depress deanne disorde r, recurre nt, moderat e HIDALGO,ST EVEN G 01/14 [facility] FEE 28501-2.63 [id number] Diagnos is: ICD-10- CM F33.1 Major depress deanne disorde r, recurre nt, moderat e SHOBANDE,O LUB[place] 04/15 [facility] OFFICE O/P EST LOW 20 MIN 62251-6.63 [id number] Diagnos is: ICD-10- CM F33.1 Major depress deanne disorde r, recurre nt, moderat e HIDALGO,ST EVEN G 04/15 [facility] [place] [facility] Outpatient Encounter [id number] 07/31 [facility] [place] [facility]AC[facility] FEE 28882-5.63 [id number] Diagnos is: ICD-10- CM F33.1 Major depress deanne disorde r, recurre nt, moderat e SHOBANDE,O [place]UB[place] 10/14 [facility] OFFICE O/P EST LOW 20 MIN 40729-3.63 [id number] Diagnos is: ICD-10- CM F33.1 Major depress deanne disorde r, recurre nt, moderat e HIDALGO,ST EVEN G 10/14 [facility] Social History Combined list of available smoking, tobacco, and other social history from Department of Defense and Veterans Affairs facilities. Social History Type Response Date Comment [facility] VA-TOBACCO FORMER USER 024 [place] History of tobacco use VA-TOBACCO QUIT 1 5 YRS OR MORE 01/15/2024 [place] This section is an empty social history section. DoD Plan of Care List of future care activities from Department of Veterans Affairs facilities. Additional future care activities may be listed in the Assessment and Plan section. Date/Time Care Activity Care Activity Detail Facili ty 04/14/2025 AMBULATORY - PSYCHIATRY AMBULATORY - PSYC HI[facility] 04/14/2025 [facility]BULAT[facility]
--- OUTSIDE RECORDS SUMMARY | 2024-12-02 18:18 | XMS_ITS | Clinical Summary ---
Author Organization [facility] it Address [address] [place] [address] Care Team Providers Care Manager Cardiology Name Role Phone Orquidea Hill MD Primary Care Provider + [phone] Surgical History Surgery Date Site/Laterality Comments OTHER SURGICAL HISTORY PROCEDURE: WY ENDOSCOPY UPPER SMALL INTESTINE OTHER SURGICAL HISTORY PROCEDURE: [place] EGD BALLOON DILATION ESOPHAGUS <30 MM DIAM; COMMENT: x 2 OTHER SURGICAL HISTORY PROCEDURE: COLONOSCOPY, SURGICAL KNEE ARTHROSCOPY W/ MENISCAL REPAIR PROCEDURE: WY ARTHROSCOPY KNEE W/MENISCUS RPR MEDIAL/LATERAL; COMMENT: left side SHOULDER ARTHROSCOPY PROCEDURE: WY SURGICAL ARTHROSCOPY SHOULDER W/LSS&RESCJ ADS; COMMENT: right [...] Documents on File Type Date Recorded Patient Reservation Agent Expl anation Health Care Decision (hx) 12/02/2019 AD JOHNSON DIRECTIVE Health Care Decision (hx) 12/02/2019 AD JOHNSON DIRECTIVE Health Care Decision (hx) 12/02/2019 AD JOHNSON DIRECTIVE Health Care Decision (hx) 12/02/2019 AD JOHNSON DIRECTIVE Care Teams Manager Cardiology Relationship Specialty Start Date End Date Orquidea Hill MD PCP - General Internal Medicine 12/10/18
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
== END 2024-12-02 13:52 | disposition home or self-care (01) ==
LOC: HO.HKASLDS 13:51
PROVIDERS: PCP Internal Medicine; Visit Provider Nurse Practitioner Family
DX: D64.9 Anemia, unspecified (principal); R29.818 Other symptoms and signs involving the nervous system; G44.85 Primary stabbing headache
CPT/HCPCS: 99212

== ENCOUNTER 2025-01-04 11:51 | Outpatient (REF) | payer OTHER, SELFPAY ==
[2025-01-04 13:24] LABS: Folate 13.1 ng/mL (> or = 4.0); Vitamin B12 278 pg/mL (200-900)
--- OUTSIDE RECORDS SUMMARY | 2025-01-04 13:39 | XMS_ITS | Clinical Summary ---
Author Organization [facility] Address [address] [place] [address] Care Team Providers Care Shipping Inspector Name Role Phone Oskar Aguilar MD Primary Care Provider [phone] Allergies No known active allergies Medications Medication [...] Group Subscriber ID Effective Dates Phone Address [facility] [id number] [address] [place] [address] [facility] Care Teams Shipping Inspector Relationship Specialty Start Date End Date Oskar Aguilar MD [address] [place] [address] [place] [address] PCP - General Internal Medicine 04/30/17
--- OUTSIDE RECORDS SUMMARY | 2025-01-04 13:39 | XMS_ITS | Encounter Summary ---
Author Name [facility] [place] [facility] Address [address] [place] [address] Support Name Relationship Address Phone UNK, UNK [...] PRESCRIPT ION RX Oct 07, 2022 THPRX [id number] DIDIER HUDSON PATIENT [facility] PRESCRIPT ION RX Oct 07, 2022 THPRX [id number] DIDIER HUDSON PATIENT [facility] USP 2020 [facility] [id number] [phone] DIDIER HUDSON PATIENT [facility] MAG[facility] MONDR[facility] E 2020 [facility] [id number] [phone] DIDIER HUDSON PATIENT Selected Encounter This section includes the information on record at [place] for the Encounter. Date/Time Encounter Type Encounter Description Reason Pro vider Source Jan 07, 2024 10:00 AM Outpatient Encounter [facility] Encounter Template Text not used by [place] Plan of Treatment: Future Appointments (+ 6 [...] 20 appointments. The data comes from all [place] treatment [facility]. Appointment Date/Time Appointment Type Appointme nt Facility Name Jan 15, 2024 10:30 AM AMBULATORY - PSYCHIATRY [facility] Jan 15, 2024 10:31 AM [facility] Apr 15, 2024 10:00 AM [facility] Apr 15, 2024 10:01 AM AMBULATORY PSYCHIATRY [facility] Encounter Notes: All associated encounter notes This section contains the clinical notes associated to the Encounter. Date/Time Encounter Note(s) Provider Source Jan 07, 2024 10:15 AM CLERICAL NOTE: LOCAL TITLE: APPOINTMENT NO SHOW STANDARD TITLE: CLERICAL NOTE DATE OF NOTE: JAN 07, 2024@10:15 ENTRY DATE: JAN 07, 2024@10:15:24 AUTHOR: MAGAN ROJAS COSIGNER: DARCIE UNGER URGENCY: STATUS: COMPLETED Patient Name: DAVID HUDSON Patient SSN: [id number] Date and time of Appointment No show [...] 01/PAT 01/15/2024 10:31 CWM/SO/CVT/PSYCHMD/PRO /es/ MAGAN ROJAS CRANBERRY GROWER Signed: 01/07/2024 10:15 /evangelista/ SNEHA SEGOVIA [employer] Cosigned: 01/07/2024 12:31 MAGAN ROJASFIELD
--- OUTSIDE RECORDS SUMMARY | 2025-01-04 13:39 | XMS_ITS | Encounter Summary ---
Author Name [facility] [place] [facility] [place] Organization [facility] [place] Address [address] [place] [address] Support Name Relationship Address Phone UNK, UNK [...] PRESCRIPT ION RX Oct 07, 2022 THPRX [id number] DIDIER HUDSON PATIENT OPTUM RX PRESCRIPT ION RX Oct 07, 2022 THPRX [id number] DIDIER HUDSON PATIENT [facility] PLAN USP 2020 [facility] [id number] [phone] DIDIER HUDSON PATIENT [facility] MAGDA MONDRAGON E 2020 [id number] [phone] DIDIER HUDSON PATIENT Selected Encounter This section includes the information on record at [place] for the Encounter. Date/Time Encounter Type Encounter Description Reason Provider Source Oct 14, 2024 10:01 AM OFFICE O/P EST LOW 20 MIN [facility] - IND ICD-10-CM F33.1 Major depressive disorder, recurrent, moderate MOE HIDALGO Encounter Template Text not used by [place] Assessments - Encounter Diagnoses This section includes the primary and secondary diagnoses documented for the Encounter. Date/Time Primary/Secondary Diagnosis Diagnosis Name Provider Source Oct 14, 2024 10:21 AM PRIMARY Major depressive disorder, recurrent, moderate MOE HIDALGO [place] Oct 14, 2024 10:21 AM SECONDARY Alcohol abuse counseling and surveillance of alcoholic MOE HIDALGO [place] Oct 14, 2024 10:21 AM SECONDARY Panic disorder [episodic paroxysmal anxiety] MOE HIDALGO [place] Social History: Smoking Status (Most current) and Tobacco Use (All prior to encounter date) This section includes the most current, and the historical, smoking and tobacco- related health factors from the [place] facility where the Encounter took place. Current Smoking Status This section includes the most current smoking, or tobacco-related health factor, from the [place] facility where the Encounter took place. Date/Time Current Smoking Status Comment Facil ity Jan 15, 2024 10:31 AM [place]-TOBACCO FORMER USER [place] Tobacco Use History This section includes a history of the smoking, or tobacco-related health factors, that were collected on or before the date of the Encounter. The data comes from the [place] facility where the Encounter took place. Date/Time Smoking Status/Tobacco Use Comment F acility Jan 15, 2024 10:31 AM [place]-TOBACCO QUIT 15 YRS OR MORE [place] Encounter Notes: All associated encounter notes This [...] a CVT visit, patient was in the [facility] and seen by myself remotely from my home via synchronous telehealth equipment operated from the clinic with staff assistance. gave their permission to hold visit via this equipment. 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 Since [...] smoking cessation was helpful CURRENT MEDICATIONS: per [employer] omeprazole (PRILOSEC) 20 MG capsule atorvastatin (LIPITOR) [...] daughter, too. 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 No trauma exposure in . Discharged in 2010. The experience was all right and he reports he enjoyed a lot of it. 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 Legal: (x ) n/a; history [...] PRESENTING SYMPTOMS AND CONDITION ON TODAY'S VISIT: Brady reports things are going pretty good. I'm [...] per week, reduced Illegal/non-prescribed drugs: cannabis gummies [facility] TOBACCO: Non-smoker, quit 1998 LUISITO/HYPOMANIA: None evident [...] If urgent treatment is needed, call [phone] or go to the nearest Emergency Room 2. To schedule or change an appointment, inquire about medication refills, etc: call office number during normal office hours Diagnoses: Recurrent major depressive disorder (SCT 64386637) - Major depressive disorder, recurrent, moderate (ICD-10-CM F33.1) (Primary) Alcohol intake above recommended sensible limits (SCT 687109684) - Alcohol abuse counseling and surveillance of alcoholic (ICD-10-CM Z71.41) Panic disorder (SCT 953707155) - Panic disorder [episodic paroxysmal anxiety] (ICD-10-CM F41.0) Suicide Screen: C-SSRS Screening Glasscock-Suicide Severity Rating Scale (C-SSRS Screener) 1. Over [...] HIDALGO M.D. Signed: 10/14/2024 10:22 MOE HIDALGO [place]
--- OUTSIDE RECORDS SUMMARY | 2025-01-04 13:39 | XMS_ITS | Patient Health Record ---
Author Organization [facility] Address [address] [place] [address] Care Team Providers Care Psychological Operations Specialist Name Role Phone Po Tracy YEUNG Primary Care Provider Dayron Wakefield [phone] Allergies No Known Allergies Reason For Referral No Information Medications Medication SIG (Take, Route, Frequency, Duration) Notes [...] Once a day for 30 day(s) Active Immunizations Vaccine Route Administration Date Status Comme nts Influenza Unknown 07/26/2021 Administered Social History Tobacco Use: Social History Observation Description Date Details (start date - stop date) Former Smoker NA - NA Tobacco Use/Smoking Question Answer Notes Patient is [...] Never (0 point) Points 4 Interpretation Positive Section Notes: Nonsmoker; 3-4 beers 4 or 5 times a week Problems Problem Type SNOMED Code ICD Code Onset Dates Problem Status W/U Status Risk Notes Problem 843095948 Encounter for screening for malignant neoplasm of colon (Z12.11) Active confirmed Problem Dysphagia (24525462) Dysphagia (R13.10) Active confirmed Problem Esophageal reflux finding (639471020) Gastroesophageal reflux (K21.9) Active confirmed Problem Diverticulosis of colon (355689462) Diverticulosis of colon (K57.30) Active confirmed Problem 03479837 Esophageal dysphagia (R13.19) Active confirmed Plan Of Treatment Future Test Test Name Order Date UPPER GI ENDOSCOPY BALLOOON DILATION OF ESOPH 08/10/2021 COLONOSCOPY 08/10/2021 Insurance Providers Payer Name Payer Address Payer Phone Subscriber Number Group Number Insured Name Patient Relationship to Insured Coverage Start Date Coverage End Date [facility] (REFERRA L NEEDED) [address] [place] [phone] [id number] DAVID HUDSON Self - patient is the insured Medical (General) History Medical History History ICD Code Hx of kidney stones Sleep apnea- CPAP machine Hypertension Denies IL,DM,CVA,Lung disease,renal dise ase Hyperlipidemia Anxiety He describes a negative screening colono scopy [address] Austin SANCHEZ and a history of what s ounds like an esophageal stricture for which he has undergone 2 previous upper endoscopies with dilations at least 10 years ago Surgical History Surgery Date(Month/Year) knee left right shoulder Cataracts/Lens implants
--- OUTSIDE RECORDS SUMMARY | 2025-01-04 13:39 | XMS_ITS | Continuity of Care Document ---
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 It does not include entries that were removed or entered in error. Problem Status Onset Date Problem Type Date of Resolution Comments Source Alcohol intake above recommended sensible limits [facility] Panic disorder Active Condition [facility] Recurrent major depressive disorder Active Condition [place] Diagnosis: ICD-10-CM F33.1 Major depressive disorder, recurrent, moderate Active Diagnosis [place] Diagnosis: ICD-10-CM F41.8 Other specified anxiety disorders Active Diagnosis [facility] Medications Combined list of outpatient medications from Department of [facility] and [facility] facilities.Medications provided include 1) outpatient medications from the last 15 months, and 2) patient-reported medications. Medication Details Route Status Patient Instructions Prescription Expires Prescription Number Last Dispense Date Ordering Provider Order Date Order Qty Source AMITRIPTYLI NE HCL 25MG TAB TAKE ONE TABLET BY MOUTH AT BEDTIME FOR SLEEP AND PAIN ORAL ACTIVE 08/01/2025 [id number] 5 Charla HIDALGO 2023 90 [place] AMITRIPTYLI NE HCL 25MG TAB TAKE ONE TABLET BY MOUTH AT BEDTIME FOR SLEEP AND PAIN ORAL DISCONT INUED 01/15/2025 [id number] 4 Charla HIDALGO 2023 90 [facility] IELD AMITRIPTYLI NE HCL 25MG TAB TAKE ONE TABLET BY MOUTH AT BEDTIME FOR SLEEP AND PAIN ORAL DISCONT INUED 10/16/2024 [id number] Charla HIDALGO 2023 90 [facility] IELD BUPROPION HCL 150MG 24HR TAB,SA TAKE THREE TABLETS BY MOUTH ONCE DAILY FOR DEPRESSI ON ORAL ACTIVE 10/15/2025 [id number] 5 Charla HIDALGO 2024 270 [place] BUPROPION HCL 150MG 24HR TAB,SA TAKE THREE TABLETS BY MOUTH ONCE DAILY FOR DEPRESSI ON ORAL DISCONT INUED 04/16/2025 [id number] 4 Charla HIDALGO G 2023 270 [place] BUPROPION HCL 150MG 24HR TAB,SA TAKE THREE TABLETS BY MOUTH ONCE DAILY FOR DEPRESSI ON ORAL DISCONT INUED 04/14/2024 [id number] 4 Charla HIDALGO G 2023 270 [place] BUPROPION HCL 150MG 24HR TAB,SA TAKE THREE TABLETS BY MOUTH ONCE DAILY FOR DEPRESSI ON ORAL DISCONT INUED 01/14/2024 [id number] HIDALGOCharla JOHNSON G 2023 270 [place] LORAZEPAM 1MG TAB TAKE ONE TABLET BY MOUTH ONCE DAILY NEEDED FOR ANXIETY ORAL ACTIVE 04/16/2025 [id number] 5 HIDALGO,S WILLIETYRESE G 2024 15 [place] LORAZEPAM 1MG TAB TAKE ONE TABLET BY MOUTH ONCE DAILY NEEDED FOR ANXIETY ORAL DISCONT INUED 07/17/2024 [id number] 4 HIDALGO,S WILLIETYRESE G 2023 15 [place] Allergies, Adverse Reactions, Alerts Combined list of allergies from Department of Defense and Veterans Affairs facilities. It does not include entries that were removed or entered in error. Substance Category Reaction Severity Reaction type Status Date Reported Comments Source CLINDAMYCIN Propensity to adverse reactions to drug (finding) Eruption active [address] [facility] [facility] [place] [facility] IBUPROFEN Propensity to adverse reactions to drug (finding) Itching active 3 [facility] [place] [facility] Immunizations Combined list of available immunizations from the Department of Defense and Veterans Affairs facilities. 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 Encounters Combined list of: 1) Encounters from Department of Veterans Affairs facilities going backup to the last 18 months, not all [place] inpatient encounters are included; 2) Encounters from the Department of [facility] facilities going backup to 280 months. Location Location Details Encounter Type Encounter Number Reason For Visit Attending Provider ADM Date DC Date Status Disposition Source [facility] PSYCH DIAGNOSTIC EVALUATION [id number] Diagnos is: ICD-10- CM F41.8 Other specifi ed anxiety disorde BLAIRE Saldaña 07/16 [facility] FEE [id number] [id number] Diagnos is: ICD-10- CM F33.1 Major depress deanne disorde r, recurre nt, moderat e Alysa SUÁREZ 08/21 [facility] [employer] SystemsE OFF/OP CNSLTJ NEW/EST MOD 40 [id number] Diagnos is: ICD-10- CM F33.1 Major depress deanne disorde r, recurre nt, moderat e [facility] [place] EVEN G 08/21 [facility] FEE [id number] Diagnos is: ICD-10- CM F33.1 Major depress deanne disorde r, recurre nt, moderat CASIE Ruby 09/18 [facility] [employer] [facility] OFFICE O/P EST LOW 20-29 MIN [id number] Diagnos is: ICD-10- CM F33.1 Major depress deanne disorde r, recurre nt, moderat ST Charissa EVEN G 09/18 [facility] FEE [id number] [id number] Diagnos is: ICD-10- CM F33.1 Major depress deanne disorde r, recurre nt, moderat e SHOBANDE,O [place] 10/16 [facility] OFFICE O/P EST LOW 20 MIN [id number] [id number] Diagnos is: ICD-10- CM F33.1 Major depress deanne disorde r, recurre nt, moderat e HIDALGO,ST EVEN G 10/16 [facility] Outpatient Encounter [id number] 01/06 [facility] TELEHEALTH FACILITY FEE [id number] Diagnos is: ICD-10- CM F33.1 Major depress deanne disorde r, recurre nt, moderat e SHOBANDE,O [place] 01/14 [facility] OFFICE O/P EST LOW 20 MIN [id number] [id number] Diagnos is: ICD-10- CM F33.1 Major depress deanne disorde r, recurre nt, moderat e HIDALGO,ST EVEN G 01/14 [facility] TELEHEALTH FACILITY FEE [id number] Diagnos is: ICD-10- CM F33.1 Major depress deanne disorde r, recurre nt, moderat e SHOBANDE,O [place] 04/15 [facility] OFFICE O/P EST LOW 20 MIN [id number] Diagnos is: ICD-10- CM F33.1 Major depress deanne disorde r, recurre nt, moderat e HIDALGO,ST EVEN G 04/15 [facility] [place] [facility] Outpatient Encounter [id number] 1.07/31 [facility] [place] [facility] TE[facility]ALTH FACILITY FEE [id number] Diagnos is: ICD-10- CM F33.1 Major depress deanne disorde r, recurre nt, moderat e KAMINI,O SHEREENOWALE 10/14 [facility]P EST LOW 20 MIN [id number] Diagnos is: ICD-10- CM F33.1 Major depress deanne disorde r, recurre nt, moderat e HIDALGO,ST EVEN G 10/14 [facility] IE Social History Combined list of available smoking, tobacco, and other social history from Department of Defense and Veterans Affairs facilities. Social History Type Response Date Comment [facility] e Tobacco smoking status [facility]-TOBACCO FORMER USER 024 [place] History of tobacco use [place]-TOBACCO QUIT 1 5 YRS OR MORE 01/15/2024 [place] Plan of Care List of future care activities from Department of Veterans Affairs facilities. Additional future care activities may be listed in the Assessment and Plan section. Date/Time Care Activity Care Activity Detail Facili ty 04/14/2025 AMBULATORY - PSYCHIATRY AMBULATORY - PSYC [facility]
--- OUTSIDE RECORDS SUMMARY | 2025-01-04 13:39 | XMS_ITS | Encounter Summary ---
Author Name [facility] Organization [facility] [place] [place] Address [address] [place] [address] Support Name Relationship Address Phone UNK, UNK [...] PRESCRIPT ION RX Oct 07, 2022 THPRX [id number] DIDIER HUDSON PATIENT OPTUM RX PRESCRIPT ION RX Oct 07, 2022 THPRX [id number] DIDIER HUDSON PATIENT [facility] PLAN USP 2020 [facility] [id number] [phone] DIDIER HUDSON PATIENT [facility] PLAN [facility] MAGDA MONDRAGON E 2020 [id number] DIDIER HUDSON PATIENT Selected Encounter This section includes the information on record at [place] for the Encounter. Date/Time Encounter Type Encounter [...] Major depressive disorder, recurrent, moderate MOE HIDALGO [place] Jan 15, 2024 10:25 AM SECONDARY Alcohol abuse counseling and surveillance of alcoholic MOE HIDALGO [place] Jan 15, 2024 10:25 AM SECONDARY Panic disorder [episodic paroxysmal anxiety] MOE HIDALGO [place] Plan of Treatment: Future Appointments (+ 6 months) and Future Tests (+/- 45 days) The Plan of Treatment section includes future care activities for the patient from all [place] [facility]. This section includes future appointments and future orders which are active, pending or scheduled. Future Appointments This section includes appointments that were scheduled to occur 6 months from the date of the Encounter, up to a maximum of 20 appointments. The data comes from all [place] treatment facilities. Appointment Date/Time Appointment Type Appointme nt Facility Name Apr 15, 2024 10:00 AM AMBULATORY - PSYCHIATRY [facility] Apr 15, 2024 10:01 AM AMBULATORY PSYCHIATRY [facility] Social History: Smoking Status (Most current) and Tobacco Use (All prior to encounter date) This section includes the most current, and the historical, smoking and tobacco- related health factors from the [place] facility where the Encounter took place. Current Smoking Status This section includes the most current smoking, or tobacco-related health factor, from the [place] facility where the Encounter took place. Date/Time Current Smoking Status Comment Stacia ity Jan 15, 2024 10:31 AM [place]-TOBACCO FORMER USER [place] Tobacco Use History This section includes a history of the smoking, or tobacco-related health factors, that were collected on or before the date of the Encounter. The data comes from the [place] facility where the Encounter took place. Date/Time Smoking Status/Tobacco Use Comment F acility Jan 15, 2024 10:31 AM [place]-TOBACCO QUIT 15 YRS OR MORE [place] Encounter Notes: All associated encounter notes This [...] MH Consult 07/16/23 noting: SUMMARY AND IMPRESSIONS: Paterson is a 63 year old , , [...] TIME OF INITIAL VISIT WITH MYSELF 08/21/23: Paterson reports he was in treatment at [facility], psychiatrist retired, last seen in 2020. Since [...] smoking cessation was helpful CURRENT MEDICATIONS: per [employer] omeprazole (PRILOSEC) 20 MG capsule atorvastatin (LIPITOR) [...] daughter, too. 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 No trauma exposure in . Discharged in 2010. The experience was all right and he reports he enjoyed a lot of it. 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 Legal: (x ) n/a; history of INITIAL ASSESSMENT/ DIAGNOSIS AND RECOMMENDATIONS: presents with chronic/recurrent depression and panic disorder without agoraphobia. Encouraged to resume daily/ near-daily walking and to reduce alcohol consumption. Agrees to plan to: re-trial on Wellbutrin, stop Seroquel and start instead on AMI for sleep/pain, allow prn Ativan for panic attacks. NOTED AT LAST OP VISIT: Paterson reports I'm doing pretty well. There is a difference. No thoughts of problems or trying to hurt myself, almost past. I still have a short temper, it's better. Its still a 6 out of 10, its not real bad. No changes made. PRESENTING SYMPTOMS AND CONDITION ON TODAY'S VISIT: Paterson reports I'm doing well . Only c/o [...] sleep, anxiety and pain. No changes indicated. does not see his alcohol use as [...] Reinforced: If urgent treatment is needed, call [phone] or go to the nearest Emergency Room [...] this [place] (local) and dispensed from another [place] or [place] facility (remote) as well as [...] HIDALGO M.D. Signed: 01/15/2024 10:26 MOE HIDALGO [place]
--- OUTSIDE RECORDS SUMMARY | 2025-01-04 13:39 | XMS_ITS | Clinical Summary ---
Author Organization [facility] it Address [address] [place] [address] Care Team Providers Care Toys And Games Hand Finisher Name Role Phone Orquidea Hill MD Primary Care Provider + [phone] Surgical History Surgery Date Site/Laterality Comments OTHER SURGICAL HISTORY PROCEDURE: MS ENDOSCOPY UPPER SMALL INTESTINE OTHER SURGICAL HISTORY PROCEDURE: MS EGD BALLOON DILATION ESOPHAGUS <30 MM DIAM; COMMENT: x 2 OTHER SURGICAL HISTORY PROCEDURE: COLONOSCOPY, SURGICAL KNEE ARTHROSCOPY W/ MENISCAL REPAIR PROCEDURE: MS ARTHROSCOPY KNEE W/MENISCUS RPR MEDIAL/LATERAL; COMMENT: left side SHOULDER ARTHROSCOPY PROCEDURE: MS SURGICAL ARTHROSCOPY SHOULDER W/LSS&RESCJ ADS; COMMENT: right [...] Documents on File Type Date Recorded Patient Software Applications Architect Expl anation Health Care Decision (hx) 12/02/2019 AD JOHNSON DIRECTIVE Health Care Decision (hx) 12/02/2019 AD JOHNSON DIRECTIVE Health Care Decision (hx) 12/02/2019 AD JOHNSON DIRECTIVE Health Care Decision (hx) 12/02/2019 AD JOHNSON DIRECTIVE Care Teams Toys And Games Hand Finisher Relationship Specialty Start Date End Date Orquidea Hill MD PCP - General Internal Medicine 12/10/18
--- OUTSIDE RECORDS SUMMARY | 2025-01-04 13:39 | XMS_ITS | Encounter Summary ---
Author Name [facility] [place] Organization [facility] [place] Address [address] [place] [address] Support Name Relationship Address Phone UNK, UNK [...] PRESCRIPT ION RX Oct 07, 2022 THPRX [id number] DIDIER HUDSON PATIENT [facility] PRESCRIPT ION RX Oct 07, 2022 THPRX [id number] DIDIER HUDSON PATIENT [facility] USP 2020 [facility] [id number] DIDIER HUDSON PATIENT [facility] [place] [facility] MAGDA [place] E 2020 [id number] DIDIER HUDSON PATIENT Selected Encounter This section includes the information on record at [place] for the Encounter. Date/Time Encounter Type Encounter [...] Major depressive disorder, recurrent, moderate MOE HIDALGO [place] Apr 15, 2024 10:13 AM SECONDARY Alcohol abuse counseling and surveillance of alcoholic MOE HIDALGO [place] Apr 15, 2024 10:13 AM SECONDARY Panic disorder [episodic paroxysmal anxiety] MOE HIDALGO Plan of Treatment: Future Appointments (+ 6 months) and Future Tests (+/- 45 days) The Plan of Treatment section includes future care activities for the patient [facility] [place] [facility] This section includes future appointments and future orders which are active, pending or scheduled. Future Appointments This section includes appointments that were scheduled to occur 6 months from the date of the Encounter, up to a maximum of 20 appointments. The data comes from all [place] treatment facilities. Appointment Date/Time Appointment Type Appointme nt Facility Name Oct 14, 2024 10:00 AM AMBULATORY - PSYCHIATRY [facility] [place] Oct 14, 2024 10:01 AM AMBULATORY PSYCHIATRY [facility] [place] Social History: Smoking Status (Most current) and Tobacco Use (All prior to encounter date) This section includes the most current, and the historical, smoking and tobacco- related health factors from the [place] facility where the Encounter took place. Current Smoking Status This section includes the most current smoking, or tobacco-related health factor, from the [place] facility where the Encounter took place. Date/Time Current Smoking Status Comment Stacia ity Jan 15, 2024 10:31 AM [place]-TOBACCO FORMER USER [place] Tobacco Use History This section includes a history of the smoking, or tobacco-related health factors, that were collected on or before the date of the Encounter. The data comes from the [place] facility where the Encounter took place. 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 Since [...] smoking cessation was helpful CURRENT MEDICATIONS: per Mclowd omeprazole (PRILOSEC) 20 MG capsule atorvastatin (LIPITOR) [...] daughter, too. 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 No trauma exposure in . Discharged in 2010. The experience was all right and he reports he enjoyed a lot of it. 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 Legal: (x ) n/a; history of INITIAL ASSESSMENT/ DIAGNOSIS AND RECOMMENDATIONS: presents with chronic/recurrent depression and panic disorder without agoraphobia. Encouraged to resume daily/ near-daily walking and to reduce alcohol consumption. Agrees to plan to: re-trial on Wellbutrin, stop Seroquel and start instead on AMI for sleep/pain, allow prn Ativan for panic attacks. NOTED AT LAST OP VISIT: [place] reports I'm doing well . Only c/o is headaches, PCP Rx sumatriptan prn. Generally better. I don't have any thoughts of harming myself . No changes made. PRESENTING SYMPTOMS AND CONDITION ON TODAY'S VISIT: reports I'm doing pretty well. Everythings about [...]
[2025-01-08 15:53] LABS: Vitamin B6 93.1 ng/mL (2.1-21.7)
[2025-01-08 17:23] LABS: Methylmalonic Acid 103 nmol/L (69-390)
== END 2025-01-04 11:52 | disposition home or self-care (01) ==
LOC: HO.LAB 11:51
PROVIDERS: PCP Internal Medicine; Visit Provider Nurse Practitioner Family
DX: D64.9 Anemia, unspecified (principal); R29.818 Other symptoms and signs involving the nervous system; G44.85 Primary stabbing headache
CPT/HCPCS: 36415; 82607; 82746; 83090; 83921; 84207

== ENCOUNTER 2025-03-09 10:54 | Outpatient (AMB) | payer OTHER, SELFPAY ==
[2025-03-09 11:00] VITALS: BP 120/68; PULSE 68; O2SAT 95; BMI 31.9
--- NOTE | 2025-03-09 11:00 | A.OFFPC_ITS ---
Vital Signs 03/09/25 11:00 Height 6 ft Weight 235 lb 8 oz BMI 31.9 BP 120/68 Blood Pressure Location Lt brachial Position Sitting Pulse 68 Pulse Source Pulse Oximeter Pulse Oximetry (%) 95 Oxygen Delivery Method Room Air Intake Visit Reasons: HTN,YADIRA Relocation Services Specialist Required: No Accompanied by: Self / Same As Patient Allergies clindamycin Adverse Reaction (Verified 03/09/25 11:15) Anaphylaxis Medication List - Last Reconciled 03/09/25 by Zulema Hilliard PA-C amitriptyline 25 mg PO BEDTIME aspirin (Adult Low Dose Aspirin) 81 mg PO DAILY atorvastatin 20 mg PO DAILY 90 days bupropion HCl XL 450 mg PO DAILY calcium citrate 250 mg PO DAILY cholecalciferol (vitamin D3) 25 mcg PO DAILY clobetasol 0.05% 1 appl topical BID 2 weeks diltiazem HCl CD TAKE 1 CAPSULE BY MOUTH DAILY folic acid 0.4 mg PO DAILY lorazepam 1 mg PO DAILY PRN metoprolol succinate ER 50 mg PO DAILY 90 days omeprazole 40 mg PO BID pyridoxine (vitamin B6) 50 mg PO DAILY Tobacco use date assessed: 03/09/25 Fall risk assessment: No Falls in past year Dental Screening Dental Screen Date: 03/09/25 Did you have a dental visit in the last 12 months?: Yes Did you have a dental problem in the last 6 months where you did not have access to dental care?: No Was dental information given to patient?: Patient has dentist HPI HTN,YADIRA HPI Details 64-year-old male with past medical histo ry of impaired glucose tolerance, hypertension, GERD, obesity, obstructive sleep apnea, anxiety, hypercholesterolemia, fatty liver, anemia last seen 08/[address] Peraza coming in for follow up.?In review of the notes, patient was seen by Neurology 11/2024 blood work was ordered advised to continue on APAP and continue with sumatriptan as needed.? Seen by pulmonology 09/2024 continue with CPAP and recommend weight loss. Patient was told by his neurologist he has bruxism and was recommended to use a mouthguard to prevent tension headaches. He has been using a mouthguard and has noticed in an improvement in the headaches. He is working on his weight he walks 3x per week. [facility] Medical History LFT elevation SILVERIO (obstructive sleep apnea) Obesity (BMI 30.0-34.9) GERD (gastroesophageal reflux disease) Hypertension Impaired glucose tolerance Surgical History H/O left knee surgery History of shoulder surgery History of cataract surgery Family History Mother Heart attack Father No problems noted. Brother No problems noted. Sister No problems noted. Sister No problems noted. Brother Heart attack Son No problems noted. Son No problems noted. Daughter No problems noted. Social History Housing: House Alcohol intake: current Alcohol intake frequency: a few times a week Comment: 3x a week 3-4 beers Patient Tobacco Use Status: Former Tobacco user Tobacco use type: Cigarette Years Smoked: Quit 1998 e-Cigarette/Vaping Use: Never Used Second Hand Smoke Exposure: No service: No Current occupational status: retired Current occupation: right hand dominant Cognitive needs: No Hearing needs: No Vision needs: Yes (reading glasses) Questionnaire PHQ-9 Over the last 2 weeks, how often have you been bothered by any of the following problems? 1. Little interest or pleasure in doing things: not at all 2. Feeling down, depressed, or hopeless: not at all 3. Trouble falling or staying asleep, or sleeping too much: not at all 4. Feeling tired or having little energy: several days 5. Poor appetite or overeating: not at all 6. Feeling bad about yourself - or that you are a failure or have let yourself or your family down: not at all 7. Trouble concentrating on things, such as reading the newspaper or watching television: not at all 8. Moving or speaking so slowly that other people could have noticed. Or the opposite - being so fidgety or restless that you have been moving around a lot more than usual: not at all 9. Thoughts that you would be better off or of hurting yourself in some way: not at all Total score: 1 Source: Developed by Drs. Dayron Osborne, Lety B.Ronald Morris and colleagues, with an educational joya from [employer]. Thrive Questionnaire Date Thrive assessed: 03/09/25 I am a: Patient What is your living situation today?: I have a steady place to live Within the past 12 months, did the food you bought not last and you didn't have the money to get more?: Never true Within the past 12 months, did you worry whether your food would run out before you got money to buy more?: Never true Do you have trouble paying for medicines?: No Do you have trouble getting transportation to medical appointments?: No Do you have trouble paying your heating and electricity bill?: No Do you have trouble taking care of your child, family member or friend?: No Do you have trouble with day-to-day activities such as bathing, preparing meals, shopping, managing finances, etc.?: No Are you currently unemployed and looking for a job?: No Are you interested in more education?: No Please select the resources that you would like help with: None Currently or been in a relationship where the following occur: No concerns reported THRIVE Score: 0 AUDIT C Alcohol Use Questionnaire (AUDIT-C) 1. How often do you have a drink containing alcohol?: 2-3 times a week 2. How many drinks containing alcohol do you have on a typical day when you are drinking?: 3 or 4 3. How often do you have six or more drinks on one occasion?: Monthly Total Score: 6 YADIRA-7 AMB Questionnaire YADIRA-7 Date YADIRA - 7 assessed: 03/09/25 Feeling nervous, anxious, or on edge: 0 = Not at all Not being able to stop or control worryin = Not at all Worrying too much about different things: 0 = Not at all Trouble relaxin = Not at all Being so restless that it is hard to sit still: 0 = Not at all Becoming easily annoyed or irritable: 1 = Several days Feeling afraid as if something awful might happen: 0 = Not at all Total YADIRA-7 score (0-4 normal; 5-9 mild; 10-14 moderate; 15-21 severe): 1 Source: Developed by Drs. Dayron Osborne, Ronald Mcclure and colleagues, with an educational joya from [employer]. Review of Systems Const Denies body aches, Denies chills, Denies fever(s), Denies headache(s) and Denies poor appetite Eyes Reports no additional complaints ENT Denies dizziness and Denies headache(s) Card Denies chest pain, Denies irregular heart rhythm, Denies lightheadedness and Denies dyspnea Resp Denies cough and Denies dyspnea GI Denies abdominal pain, Denies constipation, Denies diarrhea, Denies nausea and Denies vomiting Reports no additional complaints Musc Reports no additional complaints and Denies abnormal gait Skin/Breast Reports system reviewed and no additional complaints, except as documented Neuro Denies abnormal gait, Denies dizziness and Denies headache(s) Psych Reports no additional complaints Physical exam (Primary Care) Vital Signs: Last Vital Signs Pulse 68 03/09/25 11:00 BP 120/68 03/09/25 11:00 Pulse Ox 95 03/09/25 11:00 Oxygen Delivery Method Room Air 03/09/25 11:00 BMI result Body Mass Index 31.9 Tobacco/Smoking Status: Tobacco use Status Tobacco use date assessed 03/09/25 03/09/25 11:11 Patient Tobacco Use Status Former Tobacco user 03/09/25 11:11 Tobacco use type Cigarette 03/09/25 11:11 e-Cigarette/Vaping Use Never Used 03/09/25 11:11 PHQ-9: PHQ-9 Score PHQ-9: Total score 1 03/09/25 11:17 Thrive Assessment: Date of Thrive Assessment Date Thrive assessed 03/09/25 03/09/25 11:11 Currently or been in a relationship where the following occur: No concerns reported Const General: cooperative, healthy appearing, comfortable and no acute distress Orientation/consciousness: patient oriented x3 HENMT Head: Yes normocephalic Ears: hearing grossly normal bilaterally General nose exam: Normal external nose present Eyes General: appearance normal, both eyes and all related structures Conjunctivae: conjunctivae normal Neck Neck: Yes full ROM and Yes no lymphadenopathy Resp Effort & Inspection: normal respiratory effort Auscultation: clear to auscultation bilaterally, no crackles, no rales, no rhonchi and no wheezes Cardio Rate: regular rate Rhythm: regular rhythm Skin General skin exam: no rashes or lesions noted Neuro General: patient oriented x3 Gait exam (Neuro): Normal gait present Extrem General: Yes normal to inspection, Yes full ROM and No edema Psych Affect: normal affect Attitude: cooperative Insight: Good insight present (Psych) Judgement: Good judgement present (Psych) Coding Level of Care Code Est Pt Level 3 (57899) Diagnoses Fatty liver K76.0 Hypercholesterolemia E78.00 SILVERIO (obstructive sleep apnea) G47.33 Obesity (BMI 30.0-34.9) E66.9 Gastroesophageal reflux disease without esophagitis K21.9 Esophagitis presence: without esophagitis Essential hypertension I10 Hypertension type: essential hypertension Impaired glucose tolerance R73.02 Assessment & Plan Assessment & Plan (1) Fatty liver: Comment: 07/2023 Code(s): K76.0 - Fatty (change of) liver, not elsewhere classified Category: Medical Plan: Healthy diet and regular exercise is encouraged. (2) Hypercholesterolemia: Code(s): E78.00 - Pure hypercholesterolemia, unspecified Category: Medical Plan: Avoid foods that are high in cholesterol such as red meat, fried foods, eggs and baked goods. Triglyceride goal of less than 150 and LDL goal of less than 100. Continue on atorvastatin 20 (3) SILVERIO (obstructive sleep apnea): Comment: KNOWN CASE OF SILVERIO. USING CPAP REGULARLY, COMPLIANCE IS GOOD . AND HE IS DEFINITELY BENEFITING FROM THE USE OF CPAP. HE LIKES THE NASAL INTERFACE WHICH IS MORE COMFORTABLE. Code(s): G47.33 - Obstructive sleep apnea (adult) (pediatric) Category: Medical Plan: Uses CPAP faithfully at least 4 hours a night and benefits from this therapy. Continue to follow with pulmonology and Neurology. (4) Obesity (BMI 30.0-34.9): Comment: PATIENT REMAINS MODERATELY OBESE. SINCE HIS LAST VISIT HE HAS LOST ABOUT 5 LB OF WEIGHT. HE IS NOT IN ANY ACTIVE WEIGHT MANAGEMENT PROGRAM. BECAUSE OF HIS ANXIETY DISORDER HE IS NOT GOING OUTDOORS MUCH AND DOES NOT DO ANY EXERCISE. Code(s): E66.9 - Obesity, unspecified Category: Medical Plan: Healthy diet and regular exercise is encouraged. (5) GERD (gastroesophageal reflux disease): Code(s): K21.9 - Gastro-esophageal reflux disease without esophagitis Category: Medical Qualifiers: Esophagitis presence: without esophagitis Qualified Code(s): K21.9 - Gastro-esophageal reflux disease without esophagitis Plan: Avoid trigger foods such as citrus, tomato products, soda, caffeine, spicy foods and other foods that may be irritating to your stomach. Avoid laying flat 3-4 hours after eating and elevate the head of the bed 30 degrees to prevent acid from moving into the esophagus. Continue on omeprazole 40 (6) Hypertension: Code(s): I10 - Essential (primary) hypertension Category: Medical Qualifiers: Hypertension type: essential hypertension Qualified Code(s): I10 - Essential (primary) hypertension Plan: Continue on current blood pressure medication. Avoid salt intake and encourage healthy diet and regular exercise. (7) Impaired glucose tolerance: Code(s): R73.02 - Impaired glucose tolerance (oral) Category: Medical Plan: Decrease the amount of carbohydrates such as pasta, bread, rice, and potatoes and limit the amount of sweets. Although fruits are generally healthy they should be eaten in moderation as they are still high in sugar. Plan Plan for blood work and annual exam in August as scheduled. This note was constructed using voice recognition software. While every effort has been made to ensure accuracy and offshore diver, still areas may have been included sometimes these areas may affect the content or meeting of the given symptoms. Total time spent caring for the patient today was 20 minutes. This includes time spent before the visit reviewing the chart, time spent during the visit, and time spent after the visit and documentation. Orders: Orders Complete Blood Count Auto Diff Today I10 - Essential (primary) hypertension, Z00.00 - Encounter for general adult medical examination without abnormal findings TSH reflex Free T4 Today I10 - Essential (primary) hypertension, Z00.00 - Encounter for general adult medical examination without abnormal findings Hemoglobin A1c Today R73.02 - Impaired glucose tolerance (oral) Lipid Panel Today E78.00 - Pure hypercholesterolemia, unspecified Vitamin B12 and Folate Today I10 - Essential (primary) hypertension, Z13.21 - Encounter for screening for nutritional disorder Comprehensive Met. Panel Today I10 - Essential (primary) hypertension, Z00.00 - Encounter for general adult medical examination without abnormal findings Free T4 (Free Thyroxine) Today I10 - Essential (primary) hypertension, Z00.00 - Encounter for general adult medical examination without abnormal findings
--- OUTSIDE RECORDS SUMMARY | 2025-03-09 12:34 | XMS_ITS | Encounter Summary ---
[facility] Address [address] [place] [address] Care Team Providers Care Vertical Borer Name Role Phone Orquidea Hill MD Primary Care Provider Unavail able Reason for Visit * Reason Onset Date Comments Medication 11/10/2021 Encounter Details Date Type Department Care Team Description 11/10/2021 Telephone General Surgery - [address] [place] [address] Anahi Tucker MD [address] [place] [id number] Medication Social History Tobacco Use Types Packs/Day [...] on filedocumented in this encounter Care Teams Vertical Borer Relationship Specialty Start Date End Date Orquidea Hill MD PCP - General Internal Medicine 12/10/18 documented as of this encounter
== END 2025-03-09 11:38 | disposition home or self-care (01) ==
LOC: HO.HMCH 10:58
PROVIDERS: PCP Internal Medicine
DX: E78.00 Pure hypercholesterolemia, unspecified (principal); K21.9 Gastro-esophageal reflux disease without esophagitis; E66.9 Obesity, unspecified; Z68.31 Body mass index [BMI] 31.0-31.9, adult; K76.0 Fatty (change of) liver, not elsewhere classified; G47.33 Obstructive sleep apnea (adult) (pediatric); I10 Essential (primary) hypertension; R73.02 Impaired glucose tolerance (oral)

== ENCOUNTER → 2025-03-09 10:54 | Outpatient (BNVA) | payer OTHER, SELFPAY | PROVIDERS: PCP Internal Medicine | DX: I10 Essential (primary) hypertension (principal); K21.9 Gastro-esophageal reflux disease without esophagitis; E66.9 Obesity, unspecified; G47.33 Obstructive sleep apnea (adult) (pediatric); F41.9 Anxiety disorder, unspecified; E78.00 Pure hypercholesterolemia, unspecified; K76.0 Fatty (change of) liver, not elsewhere classified; Z68.31 Body mass index [BMI] 31.0-31.9, adult; Z99.89 Dependence on other enabling machines and devices | CPT/HCPCS: 96127; 99212 ==

== ENCOUNTER 2025-03-10 09:25 | Outpatient (AMB) | payer OTHER, SELFPAY ==
[2025-03-10 09:34] VITALS: BP 130/62; PULSE 60; O2SAT 96; BMI 32.4
--- NOTE | 2025-03-10 09:34 | MHC.OFFVIS ---
Vital Signs 03/10/25 09:34 Height 6 ft Weight 239 lb 3.225 oz BMI 32.4 BP 130/62 Blood Pressure Location Lt brachial Position Sitting Pulse 60 Pulse Source Pulse Oximeter Pulse Oximetry (%) 96 Oxygen Delivery Method Room Air Intake Visit Reasons: Obstructive sleep apnea Intake Note: pt is here for follow up and states he is feeling okay. Scale Adjuster Required: No Allergies clindamycin Adverse Reaction (Verified 03/10/25 09:56) Anaphylaxis Medication List - Last Reconciled 03/10/25 by Alfredito Rivas MD amitriptyline 25 mg PO BEDTIME aspirin (Adult Low Dose Aspirin) 81 mg PO DAILY atorvastatin 20 mg PO DAILY 90 days bupropion HCl XL 450 mg PO DAILY calcium citrate 250 mg PO DAILY cholecalciferol (vitamin D3) 25 mcg PO DAILY clobetasol 0.05% 1 appl topical BID 2 weeks diltiazem HCl CD TAKE 1 CAPSULE BY MOUTH DAILY folic acid 0.4 mg PO DAILY lorazepam 1 mg PO DAILY PRN metoprolol succinate ER 50 mg PO DAILY 90 days omeprazole 40 mg PO BID Do you need a note to return to daycare/school/sports/work: No HPI HPI Obstructive sleep apnea: Details: THIS 64 YEARS OLD GENTLEMAN, MODERATELY OBESE, WITH DIAGNOSIS OF OBSTRUCTIVE SLEEP APNEA IS HERE FOR ROUTINE FOLLOW-UP AFTER 6 MONTHS. HE USES CPAP VERY REGULARLY EVERY NIGHT AT LEAST FOR 7 HOURS PER NIGHT AND SLEEPS WELL. THERE ARE NO ISSUES RELATED TO THE MASK OR CPAP DEVICE. TODAY HE IS COMPLAINING OF SHORTNESS OF BREATH ON MINIMAL EXERTION. DURING THE WINTER WHEN HE WAS SKIING HE NOTICED THAT HE WAS BECOMING SHORT OF BREATH MORE EASILY THAN BEFORE. NOW IF HE CLIMBS 1 FLIGHT OF STAIRS OR WALKS 1 BLOCK AT A FAST SPEED HE GETS SHORT OF BREATH. THIS IS SOMEWHAT NEW FOR HIM. HE DENIES ANY TIGHTNESS OR CHEST PAIN, HE ALSO DENIES ANY WHEEZING ATTACKS. HE IS PAST SMOKER BUT QUIT BACK IN 1998. HE HAD HIS LAP TEST IN JULY 2024 AND HIS HEMOGLOBIN WAS NORMAL. HE IS OBESE WITH ABDOMINAL OBESITY AND HAS PUT ON A FEW LB OF WEIGHT SINCE LAST VISIT [facility] Medical History (Updated 03/10/25 @ 14:22 by Alfredito Rivas MD) Dyspnea on exertion LFT elevation SILVERIO (obstructive sleep apnea) Obesity (BMI 30.0-34.9) GERD (gastroesophageal reflux disease) Hypertension Impaired glucose tolerance Surgical History H/O left knee surgery History of shoulder surgery History of cataract surgery Family History Mother Heart attack Father No problems noted. Brother No problems noted. Sister No problems noted. Sister No problems noted. Brother Heart attack Son No problems noted. Son No problems noted. Daughter No problems noted. Social History Housing: House Alcohol intake: current Alcohol intake frequency: a few times a week Comment: 3x a week 3-4 beers Patient Tobacco Use Status: Former Tobacco user Tobacco use type: Cigarette Years Smoked: Quit 1998 e-Cigarette/Vaping Use: Never Used Second Hand Smoke Exposure: No service: No Current occupational status: retired Current occupation: right hand dominant Cognitive needs: No Hearing needs: No Vision needs: Yes (reading glasses) Review of Systems Const All systems reviewed & are unremarkable except as noted in HPI and below Eyes Reports no additional complaints ENT Reports no additional complaints Card Reports no additional complaints Resp Reports no additional complaints GI Reports heartburn (GERD SYMPTOMS CONTROLLED WITH OMEPRAZOLE) Reports no additional complaints Musc Reports no additional complaints Skin/Breast Reports system reviewed and no additional complaints, except as documented Neuro Reports no additional complaints Psych Reports depression (Mild, controlled with minimal medication) Endo Reports no additional complaints Aller/Immun Reports no additional complaints Physical Exam Vital Signs: Last Vital Signs Pulse 60 03/10/25 09:34 BP 130/62 03/10/25 09:34 Pulse Ox 96 03/10/25 09:34 Oxygen Delivery Method Room Air 03/10/25 09:34 BMI result Body Mass Index 32.4 Const General: healthy appearing (Except for overweight .), comfortable, no acute distress, alert and awake Orientation/consciousness: patient oriented x3 HEENT Head: Yes normal to inspection General nose exam: No nasal polyps present and No nasal discharge present Face and sinus: Yes sinuses nontender Mouth: oropharynx normal Throat: Yes posterior oropharynx normal Eyes General: appearance normal, both eyes and all related structures Neck Neck: Yes normal visual inspection, Yes no lymphadenopathy, Yes trachea midline and Yes no JVD Thyroid: Thyroid normal Chest Chest palpation & inspection: normal inspection of the chest, normal palpation of entire chest wall and no tenderness Resp Effort & Inspection: normal respiratory effort Auscultation: clear to auscultation bilaterally, no rhonchi and no wheezes Percussion: percussion normal Cardio Palpation: normal PMI Rate: regular rate Rhythm: regular rhythm Heart sounds: no gallops and no murmurs Peripheral pulses: Peripheral pulses 2+ throughout GI Palpation (GI): Soft to palpation, nontender, No hepatosplenomegaly present and no masses Auscultation: normal bowel sounds Back/Spine/Pelvis Thoracic/Lumbar Spine: thoracic and lumbar spine normal to inspection Skin General skin exam: no rashes or lesions noted and dry skin (RELATED TO PSORIASIS) Neuro General: patient oriented x3 and no focal motor deficits Cranial nerves: Yes CN's II-XII intact bilaterally Extrem General: Yes normal to inspection, Yes no clubbing, cyanosis or edema and Yes no calf tenderness Psych Appearance: grossly normal and well kempt Speech and movement: Normal speech and movement present Office Procedures Spirometry Testing Spirometry Comments: In office spirometry completed with results given to Dr Rivas. [id number]- Spirometry Results Reviewed Results Reviewed: SPIROMETRY : NORMAL , NO RESTRICTIVE OR OBSTRUCTIVE DISORDER Assessment & Plan Assessment & Plan (1) Obesity (BMI 30.0-34.9): Comment: PATIENT REMAINS MODERATELY OBESE. SINCE HIS LAST VISIT HE HAS GAINED ABOUT 4 LB OF WEIGHT . HE IS NOT IN ANY ACTIVE WEIGHT MANAGEMENT PROGRAM. BECAUSE OF HIS ANXIETY DISORDER HE IS NOT GOING OUTDOORS MUCH AND DOES NOT DO ANY EXERCISE. Code(s): E66.9 - Obesity, unspecified Category: Medical Plan: I EXPLAINED TO HIM THAT HE NEEDS TO WATCH HIS WEIGHT CLOSELY. HE SHOULD BE LOSING A FEW LB EVERY MONTH AND NOT GAINING. (2) SILVERIO (obstructive sleep apnea): Comment: KNOWN CASE OF SILVERIO. USING CPAP REGULARLY, COMPLIANCE IS GOOD . AND HE IS DEFINITELY BENEFITING FROM THE USE OF CPAP. HE LIKES THE NASAL INTERFACE WHICH IS MORE COMFORTABLE. Code(s): G47.33 - Obstructive sleep apnea (adult) (pediatric) Category: Medical Plan: COMMENDED FOR GOOD COMPLIANCE AND ADVISED TO CONTINUE USING THE CPAP REGULARLY EVERY NIGHT (3) Dyspnea on exertion: Comment: ON THIS VISIT HE IS COMPLAINING OF INCREASED SHORTNESS OF BREATH ON EXERTIONAL, SUCH WALKING OUTDOORS FOR ABOUT 1 BLOCK, OR GOING UP AND DOWNSTAIRS. DENIES ANY WHEEZING. DENIES ANY CHEST PAIN ON WALKING. WE DID DO A SPIROMETRY IN THE OFFICE WHICH IS ESSENTIALLY NORMAL. Code(s): R06.09 - Other forms of dyspnea Category: Medical Plan: I EXPLAINED TO THE PATIENT THAT HIS SHORTNESS OF BREATH ON EXERTION IS DUE TO COMBINATION OF A FEW FACTORS. 1 - OBESITY, WITH RECENT WEIGHT GAIN EVEN BY A FEW LB CAN CONTRIBUTE TO HIS SHORTNESS OF BREATH. 2- GENERAL DECONDITIONING, IF HE IS NOT DOING ANY REGULAR PHYSICAL EXERCISE, 3-THIS IS ALSO NOT RELATED TO OBSTRUCTIVE SLEEP APNEA. HE IS ADVISED TO DO DEEP BREATHING EXERCISES 2 OR 3 TIMES A DAY. STRESSED THAT IS IMPORTANT FOR HIM TO LOSE SOME WEIGHT AT LEAST 5-10 LB . CONSIDER HAVING CARDIAC EVALUATION FOR ANY POSSIBLE CORONARY ARTERY DISEASE. HE SHOULD DISCUSS IT WITH PRIMARY CARE PHYSICIAN. Orders: Orders AMB Spirometry Testing Today G47.33 - Obstructive sleep apnea (adult) (pediatric) Coding Level of Care Code Est Pt Level 3 (36651) Diagnoses Obesity (BMI 30.0-34.9) E66.9 SILVERIO (obstructive sleep apnea) G47.33 Dyspnea on exertion R06.09 CPT Codes Spirometry - CPT: 50685- Spirometry ([id number])
--- OUTSIDE RECORDS SUMMARY | 2025-03-10 09:48 | XMS_ITS | Encounter Summary ---
Author Organization [facility] Address [address] [place] [address] Care Team Providers Care Trimmer Machine Name Role Phone Orquidea Hill MD Primary Care Provider Unavail able Reason for Visit * Reason Onset Date Comments Medication 11/10/2021 Encounter Details Date Type Department Care Team Description 11/10/2021 Telephone General Surgery - [address] [place] [address] Anahi Tucker MD [address] [place] [id number] Medication Social History Tobacco Use Types Packs/Day [...] on filedocumented in this encounter Care Teams Trimmer Machine Relationship Specialty Start Date End Date Orquidea Hill MD PCP - General Internal Medicine 12/10/18 documented as of this encounter
== END 2025-03-10 10:15 | disposition home or self-care (01) ==
LOC: HO.HPS 09:26
PROVIDERS: PCP Internal Medicine; Visit Provider Internal Medicine
DX: E66.9 Obesity, unspecified (principal); G47.33 Obstructive sleep apnea (adult) (pediatric); R06.09 Other forms of dyspnea
CPT/HCPCS: 94010; 99213

== ENCOUNTER → 2025-03-10 09:25 | Outpatient (BNVA) | payer OTHER, SELFPAY | PROVIDERS: PCP Internal Medicine; Visit Provider Internal Medicine | DX: G47.33 Obstructive sleep apnea (adult) (pediatric) (principal); E66.9 Obesity, unspecified; R06.09 Other forms of dyspnea; Z68.32 Body mass index [BMI] 32.0-32.9, adult; Z99.89 Dependence on other enabling machines and devices; Z87.891 Personal history of nicotine dependence | CPT/HCPCS: 94010; 99212 ==

== ENCOUNTER 2025-04-13 10:54 | Outpatient (REF) | payer OTHER, SELFPAY ==
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
[2025-04-13 11:08] LABS: MANUAL DIFF FLAG NO
[2025-04-13 11:51] LABS: Hematocrit 44.0 % (42.0-52.0); Hemoglobin 15.2 g/dl (14.0-18.0); Imm Gran Abs Auto 0.03 X10*3/uL (0.00-0.03); Imm Gran Pct Auto 0.5 % (0.0-0.4); Lymphocytes Absolute Auto 2.0 X10*3/uL (1.2-4.9); Mean Corpuscular HGB Conc 34.5 g/dl (31.0-36.0); Mean Corpuscular Hemoglobin 31.2 pg (27.0-33.0); Mean Corpuscular Volume 90.3 fL (80.0-98.0); NRBC Abs Auto 0.000 X10*3/uL (0.0-0.012); NRBC Pct Auto 0.0 /100WBC (0.0-0.2); Platelet Count 234 X10*3/uL (160-400); Red Blood Count 4.87 X10*6/uL (4.60-5.80); White Blood Count 6.1 X10*3/uL (4.8-10.8)
[2025-04-13 11:57] LABS: Hemoglobin A1C 158.3159 umol/L; Total Hemoglobin (HGBA1C) 3884.1040 umol/L
--- OUTSIDE RECORDS SUMMARY | 2025-04-13 11:58 | XMS_ITS | Clinical Summary ---
Author Organization [facility] Address [address] [place] [address] Care Team Providers Care Truck Bench Mechanic Name Role Phone Oskar Aguilar MD Primary Care Provider [phone] Allergies No known active allergies Medications Medication [...] (1 of 2) 2010 Influenza Vaccine (#1) 2025 Pneumococcal Vaccine (1 of 1 - PCV) [...] Group Subscriber ID Effective Dates Phone Address [facility] [id number] [facility] [address] [place] [address] [facility] Care Teams Truck Bench Mechanic Relationship Specialty Start Date End Date Oskar Aguilar MD [address] [place] [address] [place] [address] PCP - General Internal Medicine 04/30/17
--- OUTSIDE RECORDS SUMMARY | 2025-04-13 11:58 | XMS_ITS | Patient Health Record ---
Author Organization [facility] Address [address] [place] [address] Care Team Providers Care Patrol Man Name Role Phone Po Tracy YEUNG Primary Care Provider Dayron Wakefield [phone] Allergies No Known Allergies Reason For Referral No Information Medications Medication SIG (Take, Route, Frequency, Duration) Notes Start Date End Date Status Metoprolol Tartrate 50 MG 1 tablet with food Orally Twice a day for 30 day(s) Active LORazepam 0.5 MG 1 tablet at bedtime as needed Orally Once a day Active Atorvastatin Calcium 20 MG 1 tablet [...] for 5 Active Calcium Citrate Acti ve Omeprazole 40 MG 1 capsule Orally Twi ce a day for 90 days 01/30/2025 Active Vitamin B6 Active Vitamin D3 Active Aspirin 81 81 MG 1 tablet Orally Once a day for 30 day(s) Active Folic Acid 400 MCG 1 tablet Orally Once a day for 30 day(s) Active Omeprazole 40 MG TAKE 1 CAPSULE BY [facility] TWO TIMES A DAY Orally Twice a day for 90 days Active Immunizations Vaccine Route Administration Date Status [...] Problem Status W/U Status Risk Notes Problem [id number] Encounter for screening for malignant neoplasm of colon (Z12.11) Active confirmed Problem Dysphagia (07009267) Dysphagia (R13.10) Active confirmed Problem Esophageal reflux finding (366164516) Gastroesophageal reflux (K21.9) Active confirmed Problem Diverticulosis of colon (777492731) Diverticulosis of colon (K57.30) Active confirmed Problem 55152964 Esophageal dysphagia (R13.19) Active confirmed Encounters Encounter Location Date Provider Diagnosis [facility] [address] [place] [address] 01/30/2025 Dayron Yousif Plan Of Treatment Future Test Test Name Order Date UPPER GI ENDOSCOPY BALLOOON DILATION OF ESOPH 08/10/2021 COLONOSCOPY 08/10/2021 Insurance Providers Payer Name Payer Address Payer Phone Subscriber Number Group Number Insured Name Patient Relationship to Insured Coverage Start Date Coverage End Date [facility] HE[facility] (REFERRA L NEEDED) [address] [place] [address] [id number] DAVID HUDSON Self - patient is the insured Medical (General) History Medical History History ICD Code Hx of kidney stones Sleep apnea- CPAP machine Hypertension Denies UT,DM,CVA,Lung disease,renal dise ase Hyperlipidemia Anxiety He describes a negative screening colono scopy [address] Austin SANCHEZ and a history of what s ounds like an esophageal stricture for which he has undergone 2 previous upper endoscopies with dilations at least 10 years ago Surgical History Surgery Date(Month/Year) knee left right shoulder Cataracts/Lens implants
--- OUTSIDE RECORDS SUMMARY | 2025-04-13 11:58 | XMS_ITS | Clinical Summary ---
Author Organization [facility] it Address [address] [place] [address] Care Team Providers Care Hardwood Sawyer Name Role Phone Orquidea Hill MD Primary Care Provider [phone] Surgical History Surgery Date Site/Laterality Comments OTHER SURGICAL HISTORY PROCEDURE: PA ENDOSCOPY UPPER SMALL INTESTINE OTHER SURGICAL HISTORY PROCEDURE: PA EGD BALLOON DILATION ESOPHAGUS <30 MM DIAM; COMMENT: x 2 OTHER SURGICAL HISTORY PROCEDURE: COLONOSCOPY, SURGICAL KNEE ARTHROSCOPY W/ MENISCAL REPAIR PROCEDURE: PA ARTHROSCOPY KNEE W/MENISCUS RPR MEDIAL/LATERAL; COMMENT: left side SHOULDER ARTHROSCOPY PROCEDURE: PA SURGICAL ARTHROSCOPY SHOULDER W/LSS&RESCJ ADS; COMMENT: right [...] 2023-2 5 season) 2024 Influenza Vaccine (#1) 2025 RSV Immunization Adult Patie nts (1 - 1-dose 75+ series) 2035 HIB [...] age to complete this topic Meningococcal B Vaccine Aged Out No l onger eligible based on patient's age to complete this topic RSV Immunization Patients Un alyse 20 months Aged Out No longer eligible b ased on patient's age to complete this topic Varicella Vaccines Aged Out No longer eligible based on patient's age to complete this topic Advance Directives Documents on File Type Date Recorded 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
[2025-04-13 12:24] LABS: Alanine Aminotransferase 31 U/L (0-40); Albumin Level 4.5 g/dL (3.5-5.0); Alkaline Phosphatase 55 U/L (39-117); Anion Gap 12 (12-20); Aspartate Amino Transferase 24 U/L (5-37); Blood Urea Nitrogen 19 mg/dL (9-16); Calcium 9.3 mg/dL (8.4-10.2); Carbon Dioxide 26 mmol/L (22-29); Chloride 106 mmol/L (96-108); Cholesterol 201 mg/dL (<200); Estimated Glomerular Filt Rate > 60; HDL Cholesterol 56 mg/dL (>40); Potassium 3.8 mmol/L (3.3-5.1); Sodium 140 mmol/L (135-145); Total Protein 7.2 g/dL (6.5-8.0); Triglycerides 229 mg/dL (<150)
[2025-04-13 12:45] LABS: Free T4 (Free Thyroxine) 0.68 ng/dL (0.71-1.85)
[2025-04-13 12:47] LABS: Folate 10.5 ng/mL (> or = 4.0); Vitamin B12 329 pg/mL (200-900)
== END 2025-04-13 10:55 | disposition home or self-care (01) ==
LOC: HO.LAB 10:54
PROVIDERS: Absent Provider Nurse Practitioner Family; PCP Internal Medicine
DX: Z00.00 Encounter for general adult medical examination without abnormal findings (principal); E67.2 Megavitamin-B6 syndrome; D64.9 Anemia, unspecified; E78.00 Pure hypercholesterolemia, unspecified; I10 Essential (primary) hypertension; R73.02 Impaired glucose tolerance (oral)
CPT/HCPCS: 36415; 80053; 80061; 82607; 82746; 83036; 84207; 84439; 84443; 85025

== ENCOUNTER 2025-06-08 09:33 | Outpatient (AMB) | payer OTHER, SELFPAY ==
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
--- NOTE | 2025-06-08 09:34 | A.OFFVIS_ITS ---
Vital Signs 06/08/25 09:35 Height 6 ft Weight 238 lb BMI 32.3 BP 150/90 H Blood Pressure Location Rt brachial Position Sitting Pulse 89 Pulse Source Palpation Pulse Oximetry (%) 97 Oxygen Delivery Method Room Air Intake Visit Reasons: 6 mo follow up(Need new Ins Medicare) Intake Note: Patient presents follow up headache medication Terrazzo Layer Helper Required: No Accompanied by: Self / Same As Patient Allergies clindamycin Adverse Reaction (Verified 06/08/25 09:35) Anaphylaxis Medication List - Last Reconciled 06/08/25 by NAVID Saucedo amitriptyline 25 mg PO BEDTIME aspirin (Adult Low Dose Aspirin) 81 mg PO DAILY atorvastatin 20 mg PO DAILY 90 days bupropion HCl XL 450 mg PO DAILY calcium citrate 250 mg PO DAILY cholecalciferol (vitamin D3) 25 mcg PO DAILY clobetasol 0.05% 1 appl topical BID 2 weeks diltiazem HCl CD TAKE 1 CAPSULE BY MOUTH DAILY folic acid 0.4 mg PO DAILY lorazepam 1 mg PO DAILY PRN metoprolol succinate ER 50 mg PO DAILY 90 days omeprazole 40 mg PO BID HPI Comments Details: 64-year-old male presents for follow-up of headache and balance issues. Patient denies any significant medical history changes. Since the last visit, labs were notable for an elevated vitamin B6 level. The patient was advised to hold vitamin B6, and follow-up testing in April 2025 showed a decreased but still elevated vitamin B6 level. 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 Patient denies any recurrent bothersome paresthesia, other than occasionally having his foot fall asleep, held in a sustained position Patient reports that he has not had any headaches since he started consistently using his custom mouth guard. He is compliant with amitriptyline, which he takes for sleep. He has not need to take the sumatriptan in some time. Patient denies any current balance issues. Laboratory Tests 01/04/25 04/13/25 12:06 11:06 Vitamin B6 93.1 H 59.1 H Methylmalonic Acid 103 Vitamin B12 329 Folate 10.5 Homocysteine 8.0 12/02/2024, initial HPI The patient is a 64 year old right-handed male presenting with complaints of headaches and balance issues. He has a history of tension-type headaches correlated with bruxism, for which he utilizes a mouthguard. The frequency of headaches has reduced significantly since its use. The patient's history includes a past Lyme disease diagnosis, after which he noticed balance problems. His symptoms involve feeling off with sudden movements, attributed to a potential blood pressure issue rather than true vertiginous dizziness. He reports he has peripheral neuropathy, historically managed with vitamin B6 supplements. He also reports plantar fasciitis, previously treated with toe injections. He prefers non-pharmacologic approaches to headache management due to a dislike for medications. Family History - History of heart issues in family members Review of Systems - Neurological: Reports balance issues; denies true dizziness or vertigo. - Musculoskeletal: Denies musculoskeletal pain unrelated to plantar fasciitis. Headache Review - Frequency: Once a week, previously daily - Onset: Correlated with jaw clenching - Localization: Begins at the jaw, radiating to the head - Quality: Tension-type - Aggravating factors: Bruxism, stress - Alleviating factors: Mouthguard, jaw massage - Medication: Poor response to sumatriptan, occasional Tylenol or ibuprofen Medication History - Sumatriptan: Ineffective, no recollection of side effects - Tylenol/Ibuprofen: Used as needed for headache relief - Metoprolol: Currently prescribed for hypertension, possibly contributing to balance issues - Vitamin B6: Taken for peripheral neuropathy - Lorazepam: Used infrequently for anxiety symptoms Headache Lifestyle Factors - Hydration: Regular fluid intake, preference for low-sugar energy drinks - Sleep: Uses a mouthguard for bruxism affecting headaches Initial HPI 05/25/2024: Right-handed 63-yr-old male presents for new pt evaluation of headache disorder. Pt reports he has had headaches for at least 3 yrs, which started w/o known precipitating cause. He has 2 headache sub-types- a right stabbing temporal HAS and and a right pressure headache. He has tried acute tx's which have not helped- Sumatriptan 50mg, dilaudid, Tylenol, Ibuprofen, Fioricet- none of which have helped. He did see neurology in the past at [facility]- states had head imaging, which was normal. Was tx'd for Lyme dz in February 2024- s/s neck stiffness, intermittent fevers, h eadache- feeling betetr s/p 3 wk course of Doxy. States his above headache started prior to the Lyme infection. PMH and ROS are notable for:? General- tinnitus d/t service w/ high noise exposure. Musculoskeletal disorders or injury: has intermittent sharp non-radiating low back-hip pain- can last a few days. Tries to sleep straight to avoid waking up w/ a stiff neck. Mood d/o: Anxiety, Depression Resp: Has some SOB on exertion- such as when skiing. Allergies throughout the year. SILVERIO- managed by Dr Rivas- last PAP compliance report shows AHI 1/hr. CV disease: HTN HLD- well-controlled Clotting or hematology d/o: : h/o kidney stones Pertinent denials include: Vision changes- is photophobic s/p Lasix sx. Usual dizziness. History of concussion/head injury, Respiratory d/o, Clotting or hematology d/o, Endocrine d/o, metabolic d/o, History of seizure, syncope, or drop attacks, GI d/o, Constipation, Leg Cramps, Family history of migraine or other headache disorder Lifestyle considerations: Sleep routine: Usual bedtime: 9-11pm and wake-up time: 4-6am Sleep difficulties: Sleeps ok. Caffeine use: 1 cup of coffee per day Substance use: Alcohol- 4-5 beers if watching sports etc- ~4 days per week. Exercise:?Walks. 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 He is f[facility]b the [facility]. Family planning: None Headache questionnaire:? Previous work-up: believes was done a few yrs ago at [facility] Types of headache disorders: 2 Typical headache characteristics: Prodrome symptoms: Denies Aura: Denies Pain intensity: mild-moderate Location, quality, characteristics: Often pressure right sided temporal/just the lateral aspect of right forehead, but sometimes can move across forehead into ronit temples. Associated symptoms: photophobia Postdrome: denies Triggers:No known triggers Time of day: Sometimes can wake up with headache, but no specific time of day Duration and Frequency: w/o tx lasts 1-2 hours, occurs ~5 x's per week. How does headache impact your life? He is able to do his usual activities. Typical stabbing headache: Severe sharp stabbing pain in right bahai, comes on suddenly w/o provocation, may repeat after a few seconds, max 5 stabs in an episode. Usually 1 episode in a day, and occurs about once a month. It can happen w/wo his other headache. Current acute medication use/interventions: Tylenol, Ibuprofen, Fioricet (borrowed)- does not help. Current preventative medication use: Denies Non-pharmacological interventions: Sits down and rests, closes his eyes, rubs his temples. [facility] Medical History (Updated 06/08/25 @ 17:49 by NAVID Saucedo) Dyspnea on exertion LFT elevation SILVERIO (obstructive sleep apnea) Obesity (BMI 30.0-34.9) GERD (gastroesophageal reflux disease) Hypertension Impaired glucose tolerance Surgical History H/O left knee surgery History of shoulder surgery History of cataract surgery Family History Mother Heart attack Father No problems noted. Brother No problems noted. Sister No problems noted. Sister No problems noted. Brother Heart attack Son No problems noted. Son No problems noted. Daughter No problems noted. Social History Housing: House Alcohol intake: current Alcohol intake frequency: a few times a week Comment: 3x a week 3-4 beers Patient Tobacco Use Status: Former Tobacco user Tobacco use type: Cigarette Years Smoked: Quit 1998 e-Cigarette/Vaping Use: Never Used Second Hand Smoke Exposure: No service: No Current occupational status: retired Current occupation: right hand dominant Cognitive needs: No Hearing needs: No Vision needs: Yes (reading glasses) Physical Exam Vital Signs: Last Vital Signs Pulse 89 06/08/25 09:35 BP 150/90 H 06/08/25 09:35 Pulse Ox 97 06/08/25 09:35 Oxygen Delivery Method Room Air 06/08/25 09:35 BMI result Body Mass Index 32.3 Const Orientation/consciousness: patient oriented x3 Resp Effort & Inspection: normal respiratory effort and able to speak in complete sentences Neuro General: patient oriented x3 Cranial nerves: Yes CN's II-XII intact bilaterally Cognition (Neuro): normal cognition Gait exam (Neuro): Normal gait present Motor exam (neuro): 5/5 motor strength present throughout Psych Appearance: grossly normal Mental Status: mental status grossly normal Speech and movement: Normal speech and movement present Affect: normal affect Attitude: cooperative Thought process: Normal thought process present Assessment & Plan Assessment & Plan (1) Headache: Code(s): R51.9 - Headache, unspecified Category: Medical Qualifiers: Headache chronicity pattern: episodic headache Intractability: not intractable Headache type: tension-type Qualified Code(s): G44.219 - Episodic tension-type headache, not intractable (2) Stabbing headache: Comment: Episodes of sudden Right sided stabbing pain, w/ max 5 stabs per attack (entire episode < 5 minutes) w/o associated autonomic features. Code(s): G44.85 - Primary stabbing headache Category: Medical (3) Difficulty balancing: Code(s): R29.818 - Other symptoms and signs involving the nervous system Category: Medical Plan The patient's headache symptoms have subsided with consistent use of mouth guard, which raises the likelihood that patient was experiencing tension type headache secondary to bruxism, cervical neck tightness. However, it is possible that his current Amitriptyline and metoprolol use is minimizing his headache symptoms and it's associated symptoms, thus migraine w/o aura is still a possible etiology. For balance issues: * Improved * Reviewed labs- notable for elevated vitamin B6 level. * Patient advised to discuss his vitamin B6 therapy with his job spotter * 16-24 oz electrolyte replacement beverages per day may be helpful. For headache, cervicalgia, and bruxism: * OTC Magnesium for headache, bruxism, muscle tightness. * Continue using the mouthguard for bruxism- in collaboration with dentist. * Ensure pillows are supportive of his neck. * Home cervical and upper body ROM and stretching. * Continue APAP- managed by Dr Rivas. * Advised to carry acute headache medication with him at all times. * Sumatriptan at 100mg prn, MR gail's 1 (max 200mg/per day). * May take sumatriptan with either Tylenol or Ibuprofen. * Or ibuprofen 400-600 mg every 4-6 hours as needed * Or acetaminophen 1000 mg every 6 hours as needed At this time, we will return patient to the care of his PCP, however patient is welcome to follow-up with us as needed. Coding Level of Care Code Est Pt Level 4 (60743) Diagnoses Episodic tension-type headache, not intractable G44.219 Headache chronicity pattern: episodic headache Intractability: not intractable Headache type: tension-type Stabbing headache G44.85 Difficulty balancing R29.813
[2025-06-08 09:35] VITALS: BP 150/90; PULSE 89; O2SAT 97; BMI 32.3
--- OUTSIDE RECORDS SUMMARY | 2025-06-08 10:36 | XMS_ITS | Continuity of Care Document ---
Author Name [facility] Organization [facility] Care Team Providers Care Cane Loader Name Role Phone [facility] Unavailable Unavailable Problems Combined list of problems from Department of Defense and Veterans Affairs facilities. It does not include entries that were removed or entered in error. Problem Status Onset Date Problem Type Date of Resolution Comments Source Alcohol intake above recommended sensible limits Active Condition [facility] LD Panic disorder Active Condition [facility] IELD Recurrent major depressive disorder Active Condition [facility] Diagnosis: ICD-10-CM F33.1 Major depressive disorder, recurrent, moderate Active Diagnosis [facility] Medications Combined list of outpatient medications from Department of [facility] and Veterans Affairs facilities.Medications provided include 1) outpatient medications from the last 15 months, and 2) patient-reported medications. Medication Details Route Status Patient Instructions Prescription Expires Prescription Number Last Dispense Date Ordering Provider Order Date Order Qty Source AMITRIPTYLI NE HCL 25MG TAB TAKE ONE TABLET BY MOUTH AT BEDTIME FOR SLEEP AND PAIN ORAL SUSPEND ED 02/17/2026 [id number] JOAN LEIGH 2024 30 [place] AMITRIPTYLI NE HCL 25MG TAB TAKE ONE TABLET BY MOUTH AT BEDTIME FOR SLEEP AND PAIN ORAL DISCONT INUED 08/01/2025 [id number] 5 Charla HIDALGO G 2023 90 [place] AMITRIPTYLI NE HCL 25MG TAB TAKE ONE TABLET BY MOUTH AT BEDTIME FOR SLEEP AND PAIN ORAL DISCONT INUED 01/15/2025 [id number] 4 Charla HIDALGO 2023 90 [place] BUPROPION HCL 150MG 24HR TAB,SA TAKE THREE TABLETS BY MOUTH ONCE DAILY FOR DEPRESSI ON ORAL ACTIVE 10/15/2025 [id number] 5 Charla HIDALGO 2024 270 [place] BUPROPION HCL 150MG 24HR TAB,SA TAKE THREE TABLETS BY MOUTH ONCE DAILY FOR DEPRESSI ON ORAL DISCONT INUED 04/16/2025 [id number] 4 Charla HIDALGO TEVTYRESE G 2023 270 [place] LORAZEPAM 1MG TAB TAKE ONE TABLET BY MOUTH ONCE DAILY NEEDED FOR ANXIETY ORAL DISCONT INUED 07/17/2024 [id number] 4 Charla HIDALGO TEVEN G 2023 15 [place] LORAZEPAM 1MG TAB TAKE ONE TABLET BY MOUTH ONCE DAILY NEEDED FOR ANXIETY ORAL 04/16/2025 [id number] 5 Charla HIDALGO TEVEN G 2024 15 [place] Allergies, Adverse Reactions, Alerts Combined list of allergies from Department of Defense and Veterans Affairs facilities. It does not include entries that were removed or entered in error. Substance Category Reaction Severity Reaction type Status Date Reported Comments Source CLINDAMYCIN Propensity to adverse reactions to drug (finding) Eruption active 3 [facility] IBUPROFEN Propensity to adverse reactions to drug (finding) Itching active 3 [facility] Immunizations Combined list of available immunizations from the Department of Defense and Veterans Affairs facilities. 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 (NOV) complet ed Novel influenza -[id number], injectabl e DoD influenza virus vaccine, live, attenuated, for intranasal use 1 2008 Unknown, Provider [id number] 111 Med[employer] Inc[employer] (MED) complet ed influenza virus vaccine, live, attenuate d, for intranasa l use DoD influenza virus vaccine, live, attenuated, for intranasal use 1 2007 Unknown, Provider [id number] 111 [employer] (MED) complet ed influenza virus vaccine, live, attenuate d, for intranasa l use DoD influenza virus vaccine, live, attenuated, for intranasal use 1 2007 Unknown, Provider [id number] 111 [employer] (MED) complet ed influenza virus vaccine, live, attenuate d, for intranasa l use DoD influenza virus vaccine, split virus (incl. purified surface antigen)-reti red CODE 1 2005 Unknown, Provider [id number] 15 Sanofi Pasteur ([facility]) complet ed influenza virus vaccine, split virus (incl. purified surface antigen)- retired CODE DoD influenza virus vaccine, split virus (incl. purified surface antigen)-reti red CODE 1 2004 Unknown, Provider [id number] 15 Sanofi Pasteur ([facility]) complet ed influenza virus vaccine, split virus (incl. purified surface antigen)- retired CODE DoD typhoid Vi capsular polysaccharid e vaccine 1 2003 Unknown, Provider [id number] Sanofi Pasteur ([facility]) complet ed typhoid Vi capsular polysacch aride vaccine DoD influenza virus vaccine, whole virus 1 2002 Unknown, Provider [id number] 16 [place] ([facility]) complet ed influenza virus vaccine, whole virus DoD tuberculin skin test; purified protein derivative solution, intradermal 1 2002 Unknown, Provider [id number] Sanofi Pasteur ([facility]) complet ed tuberculi n skin test; purified protein derivativ e solution, intraderm al [facility] tetanus and diphtheria toxoids, adsorbed, preservative free, for adult use (2 Lf of tetanus toxoid and 2 Lf of diphtheria toxoid) 1 2002 Unknown, Provider [id number] 09 Sanofi Pasteur ([facility]) complet ed tetanus and diphtheri a toxoids, adsorbed, preservat deanne free, for adult use (2 Lf of tetanus toxoid and 2 Lf of diphtheri a toxoid) DoD influenza virus vaccine, whole virus 1 2001 Unknown, Provider [id number] 16 Sanofi Pasteur ([facility]) complet ed influenza virus vaccine, whole virus DoD typhoid Vi capsular polysaccharid e vaccine 1 2001 Unknown, Provider [id number] Sanofi Pasteur ([facility]) complet ed typhoid Vi capsular polysacch aride vaccine DoD influenza virus vaccine, whole virus 1 2000 Unknown, Provider [id number] 16 Sanofi Pasteur ([facility]) complet ed influenza virus vaccine, whole virus DoD tuberculin skin test; purified protein derivative solution, intradermal 1 2000 Unknown, Provider [id number] 96 Sanofi Pasteur ([facility]) complet ed tuberculi n skin test; purified protein derivativ e solution, intraderm al DoD influenza virus vaccine, whole virus 1 2000 Unknown, [facility] [id number] [facility] complet ed influenza virus vaccine, whole virus DoD typhoid vaccine, parenteral, other than acetone-kille d, dried 1 1999 Unknown, Provider [id number] 41 Sanofi Pasteur ([facility]) complet ed typhoid vaccine, parentera l, other than acetone-k illed, dried DoD tuberculin skin test; purified protein derivative solution, intradermal 1 1999 Unknown, Provider [id number] 96 [facility] ([facility] complet ed tuberculi n skin test; purified protein derivativ e solution, intraderm al DoD typhoid vaccine, parenteral, other than acetone-kille d, dried 1 1999 Unknown, Provider 41 () complet ed typhoid vaccine, parentera l, other than acetone-k illed, dried DoD anthrax vaccine 3 1999 Unknown, Provider [id number] [employer] [place] ([facility]) complet ed anthrax vaccine DoD anthrax vaccine 2 1999 Unknown, Provider [id number] [employer] [place] ([facility]) complet ed anthrax vaccine DoD anthrax vaccine 1 1999 Unknown, Provider [id number] [employer] [place] ([facility]) complet ed anthrax vaccine DoD hepatitis A vaccine, adult dosage 2 1999 Unknown, Provider [id number] Merck (MSD) complet ed hepatitis A vaccine, adult dosage DoD influenza virus vaccine, whole virus 1 1998 Unknown, Provider [id number] 16 [employer] ([facility]) complet ed influenza virus vaccine, whole virus DoD measles, mumps and rubella virus vaccine 1 1998 Unknown, Provider [id number] 03 [place] (CON) complet ed measles, mumps and rubella virus vaccine DoD meningococcal polysaccharid e vaccine (MPSV4) 1 1998 Unknown, Provider [id number] 32 Sanofi Pasteur ([facility]) complet ed meningoco ccal polysacch aride vaccine (MPSV4) DoD hepatitis A vaccine, adult dosage 1 1998 Unknown, Provider [id number] Merck (MSD) complet ed hepatitis A vaccine, adult dosage DoD influenza virus vaccine, whole virus 1 1997 Unknown, Provider [id number] 16 Sanofi Pasteur ([facility]) complet ed influenza [...] ADM Date DC Date Status Disposition Source [facility] Outpatient Encounter [id number] 01/06 [facility] [id number] Diagnos is: ICD-10- CM F33.1 Major depress deanne disorde r, recurre nt, moderat e SHOBANDE,O [place]UB[place] 01/14 [facility] OFFICE O/P EST LOW 20 MIN [id number] Diagnos is: ICD-10- CM F33.1 Major depress deanne disorde r, recurre nt, moderat e HIDALGO,ST EVEN G 01/14 [facility] FAC[facility] FEE [id number] Diagnos is: ICD-10- CM F33.1 Major depress deanne disorde r, recurre nt, moderat e [facility] OFFICE O/P EST LOW 20 MIN [id number] Diagnos is: ICD-10- CM F33.1 Major depress deanne disorde r, recurre nt, moderat e HIDALGO,ST EVEN G 04/15 [facility] [place] [facility] Outpatient Encounter [id number] 07/31 [place] [facility] [place] [place] [facility] [id number]. 53 Diagnos is: ICD-10- CM F33.1 Major depress deanne disorde r, recurre nt, moderat e SHOBANDE,O [place]UB[place] 10/14 [facility] OFFICE O/P EST LOW 20 MIN [id number] Diagnos is: ICD-10- CM F33.1 Major depress deanne disorde r, recurre nt, moderat e HIDALGO,ST EVEN G 10/14 [facility] [place] [facility] Outpatient Encounter [id number] 02/15 [facility] [place] [place] [facility] [place] [facility] Outpatient Encounter [id number] 03/12 [place] [facility] [place] [facility] Social History Combined list of available smoking, tobacco, and other social history from Department of Defense and Veterans Affairs facilities. Social History Type Response Date Comment Sourc e Tobacco smoking status NHIS VA-TOBACCO FORMER USER 024 [facility] History of tobacco use VA-TOBACCO QUIT 1 5 YRS OR MORE 01/15/2024 [facility] This section is an empty social history section. DoD Plan of Care List of future care activities from Department of Veterans Affairs facilities. Additional future care activities may be listed in the Assessment and Plan section. Date/Time Care Activity Care Activity Detail Facili ty 07/16/2025 AMBULATORY - PSYCHIATRY [facility]
--- OUTSIDE RECORDS SUMMARY | 2025-06-08 10:37 | XMS_ITS | Encounter Summary ---
Author Organization [facility] Address [address] [place] [address] Care Team Providers Care Delicatessen Goods Stock Clerk Name Role Phone Orquidea Hill MD Primary Care Provider Unavail able Reason for Visit * Reason Onset Date Comments Telecommunication Lines Repairer Feedback 01/08/2022 General Surgery Encounter Details Date Type Department Care Team Description 01/08/2022 Telephone Adult Medicine - [address] [address] Orquidea Hill MD Telecommunication Lines Repairer Feedback (General Surgery) Social History Tobacco Use [...] FAMILY HEALTH PLAN / Plan: HMO $21/$31 [place] [id number] / Product Type: HMO [id number] Effective 07/07/09: BCBS will not retro referral [...] insurance must be obtained and registered in [facility] or their referral can not be [...] Is this visit:Initial Visit Address of Specialist: [address] [place] [address] [address] Phone # of Specialist:[phone] Fax #: (if applicable):[phone] Does patient have an appointment scheduled?: NO Date of appointment- (including a retro-request): Is this appointment related to: Not MVA, WC or Surgery related documented in this encounter Plan of Treatment Not on file documented as of this encounter Visit Diagnoses Not on filedocumented in this encounter Care Teams Delicatessen Goods Stock Clerk Relationship Specialty Start Date End Date Orquidea Hill MD PCP - General Internal Medicine 12/10/18 documented as of this encounter
--- OUTSIDE RECORDS SUMMARY | 2025-06-08 10:37 | XMS_ITS | Clinical Summary ---
Author Organization [facility] Address [address] [place] [address] Care Team Providers Care Radiology Specialist Name Role Phone Orquidea Hill MD Primary [...] 71 11/07/2021 3:45 PM EST Temperature 36.9 C (98.4 F) 11/07/2021 3:45 PM EST Respiratory Rate 16 12/30/2019 11:01 AM EDT [...] 2010 SHINGLES VACCINE (1 of 2) 2010 BMI CHECK/ADVISE 10/07/2024 04/06/2020, 10/2019, 12/30/2019, Additional history exists INFLUENZA (#1) 2025 08/22/2020, 07/07 (External Completion of Vaccination per patient) PNEUMOCOCCAL VACCINE FOR HIG H RISK PATIENTS (#1) 2025 Care Teams Radiology Specialist Relationship Specialty Start Date End Date Orquidea Hill MD PCP - General Internal Medicine 12/10/18
--- OUTSIDE RECORDS SUMMARY | 2025-06-08 10:37 | XMS_ITS | Clinical Summary ---
Author Organization [facility] Address [address] [place] [address] Care Team Providers Care Glue Bone Crusher Name Role Phone Oskar Aguilar MD Primary Care Provider [phone] Allergies No known active allergies Medications Medication [...] Group Subscriber ID Effective Dates Phone Address [facility] [id number] [facility] [address] [place] [address] [facility] Care Teams Glue Bone Crusher Relationship Specialty Start Date End Date Oskar Aguilar MD [address] [place] [address] [place] [address] PCP - General Internal Medicine 04/30/17
--- OUTSIDE RECORDS SUMMARY | 2025-06-08 10:38 | XMS_ITS | Encounter Summary ---
Author Organization [facility] Address [address] [place] [address] Care Team Providers Care Electrical Journeyman Name Role Phone Donte Hill MD Primary Care Provider Unavail able Reason for Referral * Non DANYELL (Routine) - Authorized/Booked Specialty Diagnoses / Procedures Referred By Contac t Referred To Contact Allergy & Immunology / Allergy Procedures REFERRAL TO ALLERGY Donte Hill MD [address] [place] [address] Arcelia Pink MD [address] [place] [address] Referral ID Status Reason Start Date Expiration Date V isits Requested Visits Authorized [id number] Authorized/ Booked 12/07/2019 12/06/2020 12 12 Reason for Visit * Reason Onset Date Comments Allergic Reaction 12/07/2019 Encounter Details Date Type Department Care Team Description 12/07/2019 Telephone Adult Medicine [address] [address] Donte Hill MD Allergic Reaction Social History [...] 20 I can do a referral to reconciliation analyst ahead of time if needed * Telephone [...] [employer] / Plan: POS $20/30 SKYLAR RITTER [id number] THNE TRADITNAL / Product Type: POS [id number] documented in this encounter Plan of Treatment Not on file documented as of this encounter Visit Diagnoses Not on filedocumented in this encounter Care Teams Electrical Journeyman Relationship Specialty Start Date End Date Donte Hill MD PCP - General Internal Medicine 12/10/18 documented as of this encounter
--- OUTSIDE RECORDS SUMMARY | 2025-06-08 10:38 | XMS_ITS | Patient Health Record ---
Author Organization [facility] Address [address] [place] [address] Care Team Providers Care Pin Inserter Name Role Phone Po Tracy YEUNG Primary Care Provider Dayron Wakefield [phone] Allergies No Known Allergies Reason For Referral [...] 40 MG TAKE 1 CAPSULE BY [facility] TWO TIMES A DAY Orally Twice a [...] Problem Status W/U Status Risk Notes Problem [id number] Encounter for screening for malignant neoplasm of colon (Z12.11) Active confirmed Problem Dysphagia (R13.10) Active confirmed Problem Esophageal reflux finding (841945467) Gastroesophageal reflux (K21.9) Active confirmed Problem Diverticulosis of colon (262584231) Diverticulosis of colon (K57.30) Active confirmed Problem 57183912 Esophageal dysphagia (R13.19) Active confirmed Encounters Encounter Location Date Provider Diagnosis [facility] [address] [place] [address] 01/30/2025 Dayron Yousif Plan Of Treatment Future Test Test Name Order Date UPPER GI ENDOSCOPY BALLOOON DILATION OF ESOPH 08/10/2021 COLONOSCOPY 08/10/2021 Insurance Providers Payer Name Payer Address Payer Phone Subscriber Number Group Number Insured Name Patient Relationship to Insured Coverage Start Date Coverage End Date [facility] (REFERRA L NEEDED) [address] [place] [phone] [id number] DAVID HUDSON Self - patient is the insured Medical (General) History Medical History History ICD Code Hx of kidney stones Sleep apnea- CPAP machine Hypertension Denies MS,DM,CVA,Lung disease,renal dise ase Hyperlipidemia Anxiety He describes a negative screening colono scopy [address] Austin SANCHEZ and a history of what s ounds like an esophageal stricture for which he has undergone 2 previous upper endoscopies with dilations at least 10 years ago Surgical History Surgery Date(Month/Year) knee left right shoulder Cataracts/Lens implants
--- OUTSIDE RECORDS SUMMARY | 2025-06-08 10:38 | XMS_ITS | Encounter Summary ---
Author Organization [facility] Address [address] [place] [address] Care Team Providers Care Terminal Supervisor Name Role Phone Orquidea Hill MD Primary Care Provider Unavail able Encounter Details Date Type Department Care Team Description 02/11/2019 Transfer Records Medical Records [address] [place] [address] Abstract, Provider Social History Tobacco Use Types [...] on filedocumented in this encounter Care Teams Terminal Supervisor Relationship Specialty Start Date End Date Orquidea Hill MD PCP - General Internal Medicine 12/10/18 documented as of this encounter
--- OUTSIDE RECORDS SUMMARY | 2025-06-08 10:38 | XMS_ITS | Clinical Summary ---
Author Organization [facility] Address [address] [place] [address] Care Team Providers Care Lpn Home Health Name Role Phone Orquidea Hill MD Primary Care Provider [phone] Surgical History Surgery Date Site/Laterality Comments OTHER SURGICAL HISTORY PROCEDURE: CA ENDOSCOPY UPPER SMALL INTESTINE OTHER SURGICAL HISTORY PROCEDURE: CA EGD BALLOON DILATION ESOPHAGUS <30 MM DIAM; COMMENT: x 2 OTHER SURGICAL HISTORY PROCEDURE: COLONOSCOPY, SURGICAL KNEE ARTHROSCOPY W/ MENISCAL REPAIR PROCEDURE: CA ARTHROSCOPY KNEE W/MENISCUS RPR MEDIAL/LATERAL; COMMENT: left side SHOULDER ARTHROSCOPY PROCEDURE: CA SURGICAL ARTHROSCOPY SHOULDER W/LSS&RESCJ ADS; COMMENT: right [...] Panel) 09/16/2022 Colorectal Cancer Screening: Colonoscopy 09/16/2022 HIV Screening 09/16/2022 Hepatitis C Screening 09/16/2022 Social Influencers of Health Screening 09/16/2022 Hypertension/CHF/CAD Annual BMP Blood Test 09/20/2022 COVID-19 Vaccine (1 - 2023-2 5 season) 2024 Depression Screening 10/07/2024 Influenza Vaccine (#1) 2025 RSV Immunization Adult [...] Documents on File Type Date Recorded Patient Stretcher Helper Expl anation Health Care Decision (hx) 12/02/2019 AD JOHNSON DIRECTIVE Health Care Decision (hx) 12/02/2019 AD JOHNSON DIRECTIVE Health Care Decision (hx) 12/02/2019 AD JOHNSON DIRECTIVE Health Care Decision (hx) 12/02/2019 AD JOHNSON DIRECTIVE Care Teams Lpn Home Health Relationship Specialty Start Date End Date Orquidea Hill MD PCP - General Internal Medicine 12/10/18
== END 2025-06-08 10:14 | disposition home or self-care (01) ==
LOC: HO.HSMS 09:34
PROVIDERS: PCP Internal Medicine; Visit Provider Nurse Practitioner Family
DX: G44.219 Episodic tension-type headache, not intractable (principal); G44.85 Primary stabbing headache; R29.818 Other symptoms and signs involving the nervous system
CPT/HCPCS: 99214

== ENCOUNTER → 2025-06-08 09:33 | Outpatient (BNVA) | payer OTHER, SELFPAY | PROVIDERS: PCP Internal Medicine; Visit Provider Nurse Practitioner Family | DX: G44.219 Episodic tension-type headache, not intractable (principal); G44.85 Primary stabbing headache; R29.818 Other symptoms and signs involving the nervous system | CPT/HCPCS: 99212 ==

== ENCOUNTER 2025-08-13 10:46 | Outpatient (AMB) | payer MEDICARE, SELFPAY ==
[2025-08-13 10:48] VITALS: BP 138/82; PULSE 64; TEMP 36.4; O2SAT 96; BMI 32.4
--- NOTE | 2025-08-13 10:48 | MHC.PC.OV ---
Vital Signs 08/13/25 10:48 Height 6 ft Weight 239 lb BMI 32.4 BP 138/82 Blood Pressure Location Lt brachial Position Sitting Pulse 64 Pulse Source Pulse Oximeter Temp 97.5 F Temp Source Temporal Artery Scan Pulse Oximetry (%) 96 Oxygen Delivery Method Room Air Intake Visit Reasons: Annual Exam Allergies clindamycin Adverse Reaction (Verified 08/13/25 10:51) Anaphylaxis Medication List - Last Reconciled 08/13/25 by Tracy Peraza MD amitriptyline 25 mg PO BEDTIME aspirin (Adult Low Dose Aspirin) 81 mg PO DAILY atorvastatin 20 mg PO DAILY 90 days bupropion HCl XL 450 mg PO DAILY calcium citrate 250 mg PO DAILY cholecalciferol (vitamin D3) 25 mcg PO DAILY clobetasol 0.05% 1 appl topical BID 2 weeks diltiazem HCl CD TAKE 1 CAPSULE BY MOUTH DAILY folic acid 0.4 mg PO DAILY lorazepam 1 mg PO DAILY PRN metoprolol succinate ER 50 mg PO DAILY 90 days omeprazole 40 mg (2 x 20 mg) PO BID Tobacco use date assessed: 08/13/25 Fall risk assessment: No Falls in past year Last assessed Fall Risk: 08/13/25 Dental Screening Dental Screen Date: 08/13/25 Did you have a dental visit in the last 12 months?: Yes Did you have a dental problem in the last 6 months where you did not have access to dental care?: No Was dental information given to patient?: Patient has dentist [facility] Medical History Dyspnea on exertion LFT elevation SILVERIO (obstructive sleep apnea) Obesity (BMI 30.0-34.9) GERD (gastroesophageal reflux disease) Hypertension Impaired glucose tolerance Surgical History H/O left knee surgery History of shoulder surgery History of cataract surgery Family History Mother Heart attack Father No problems noted. Brother No problems noted. Sister No problems noted. Sister No problems noted. Brother Heart attack Son No problems noted. Son No problems noted. Daughter No problems noted. Social History (Updated 08/13/25 @ 11:38 by Tracy Peraza MD) Housing: House Alcohol intake: current Alcohol intake frequency: a few times a week Comment: 3x a week 3-4 beers, 2-3 days a weeks, 2 beers Patient Tobacco Use Status: Former Tobacco user Tobacco use type: Cigarette Years Smoked: Quit 1998 e-Cigarette/Vaping Use: Never Used Second Hand Smoke Exposure: No service: No Current occupational status: retired Current occupation: right hand dominant Cognitive needs: No Hearing needs: No Vision needs: Yes (reading glasses) Questionnaire PHQ-9 Over the last 2 weeks, how often have you been bothered by any of the following problems? 1. Little interest or pleasure in doing things: not at all 2. Feeling down, depressed, or hopeless: not at all 3. Trouble falling or staying asleep, or sleeping too much: not at all 4. Feeling tired or having little energy: several days 5. Poor appetite or overeating: not at all 6. Feeling bad about yourself - or that you are a failure or have let yourself or your family down: not at all 7. Trouble concentrating on things, such as reading the newspaper or watching television: not at all 8. Moving or speaking so slowly that other people could have noticed. Or the opposite - being so fidgety or restless that you have been moving around a lot more than usual: not at all 9. Thoughts that you would be better off or of hurting yourself in some way: not at all Total score: 1 Source: Developed by Drs. Dayron Osborne, Lety Higgins, Ronald Pacheco and colleagues, with an educational joya from [employer]. Thrive Questionnaire Date Thrive assessed: 03/09/25 I am a: Patient What is your living situation today?: I have a steady place to live Within the past 12 months, did the food you bought not last and you didn't have the money to get more?: Never true Within the past 12 months, did you worry whether your food would run out before you got money to buy more?: Never true Do you have trouble paying for medicines?: No Do you have trouble getting transportation to medical appointments?: No Do you have trouble paying your heating and electricity bill?: No Do you have trouble taking care of your child, family member or friend?: No Do you have trouble with day-to-day activities such as bathing, preparing meals, shopping, managing finances, etc.?: No Are you currently unemployed and looking for a job?: No Are you interested in more education?: No Please select the resources that you would like help with: Utilities Currently or been in a relationship where the following occur: No concerns reported THRIVE Score: 0 AUDIT C Alcohol Use Questionnaire (AUDIT-C) 1. How often do you have a drink containing alcohol?: 2-3 times a week 2. How many drinks containing alcohol do you have on a typical day when you are drinking?: 3 or 4 3. How often do you have six or more drinks on one occasion?: Monthly Total Score: 6 YADIRA-7 AMB Questionnaire YADIRA-7 Date YADIRA - 7 assessed: 03/09/25 Feeling nervous, anxious, or on edge: 0 = Not at all Not being able to stop or control worryin = Not at all Worrying too much about different things: 0 = Not at all Trouble relaxin = Not at all Being so restless that it is hard to sit still: 0 = Not at all Becoming easily annoyed or irritable: 1 = Several days Feeling afraid as if something awful might happen: 0 = Not at all Total YADIRA-7 score (0-4 normal; 5-9 mild; 10-14 moderate; 15-21 severe): 1 Source: Developed by Drs. Dayron Osborne, Lety Higgins, Ronald Pacheco and colleagues, with an educational joya from [employer]. Review of Systems Const Denies poor appetite and Denies weakness Eyes Denies no additional complaints ENT Reports Normal hearing present, Denies dizziness, Denies nasal congestion, Denies tinnitus and Denies sore throat Card Denies chest pain, Denies syncope, Denies rapid heart rate and Denies dyspnea Resp Denies cough and Denies dyspnea GI Denies change in stool character, Reports constipation, Denies diarrhea, Denies nausea and Denies vomiting Denies dysuria and Denies urinary frequency Neuro Reports Normal hearing present, Denies confusion, Denies dizziness, Denies syncope and Denies weakness Psych Denies confusion Physical exam (Primary Care) Vital Signs: Last Vital Signs Temp 97.5 F 08/13/25 10:48 Pulse 64 08/13/25 10:48 BP 138/82 08/13/25 10:48 Pulse Ox 96 11/07/25 10:48 Oxygen Delivery Method Room Air 08/13/25 10:48 BMI result Body Mass Index 32.4 Tobacco/Smoking Status: Tobacco use Status Tobacco use date assessed 08/13/25 08/13/25 10:52 Patient Tobacco Use Status Former Tobacco user 08/13/25 11:38 Tobacco use type Cigarette 08/13/25 11:38 e-Cigarette/Vaping Use Never Used 08/13/25 11:38 PHQ-9: PHQ-9 Score PHQ-9: Total score 1 08/13/25 12:01 Thrive Assessment: Date of Thrive Assessment Date Thrive assessed 03/09/25 08/13/25 10:52 Currently or been in a relationship where the following occur: No concerns reported Const General: No confusion Orientation/consciousness: No confusion HENMT Head: Yes normocephalic Ears: external ears normal and TM's normal bilaterally Face and sinus: Yes normal facial exam Mouth: moist mucous membranes Throat: Yes tonsils normal Eyes Conjunctivae: conjunctivae normal Pupils: Equal, round and reactive pupils present and Pupil accommodation reflex normal Direct Ophthalmoscopy: normal light reflex Neck Neck: No lymphadenopathy Thyroid: Thyroid normal Chest Chest palpation & inspection: normal inspection of the chest Resp Effort & Inspection: normal respiratory effort and no audible wheezes Auscultation: clear to auscultation bilaterally, no crackles, no wheezes and lung sounds not diminished Cardio Rate: regular rate Rhythm: regular rhythm Peripheral pulses: radial pulses present and dorsalis pedis present GI Palpation (GI): no masses Auscultation: normal bowel sounds and normoactive bowel sounds Rectal Exam - Male: Yes deferred Skin General skin exam: no rashes or lesions noted Rashes: no rashes Neuro General: No confusion Cranial nerves: Yes Equal, round and reactive pupils present and Yes Normal hearing present Cognition (Neuro): normal cognition Gait exam (Neuro): Normal gait present Motor exam (neuro): 5/5 motor strength present throughout Deep tendon reflexes (DTR's): Right brachioradialis reflex intensity grade: 2+, Left brachioradialis reflex intensity grade: 2+, Right patellar reflex intensity grade: 2+ and Left patellar reflex intensity grade: 2+ Extrem General: No edema Immunizations pneumoc 20-jabier conj-dip cr(PF) 0.5 mL IM syringe Performing Provider: Tracy Peraza MD Performing [facility] [place] [facility] Administered by: Roselyn Sheffield CMA on 08/13/25 12:01 Dose Route Admin Location Dispensed Lot Number Expiration Date NDC Hay Stacker 0.5 mL IM Left Deltoid 0.5 mL [id number] 06/07/26 7371-1079-80 [employer]/PFIZER Total Dispensed Waste 0.5 mL 0 % VIS Given Date VIS Provided VIS Publication Date 08/13/25 Single Vaccine 25 Eligibility Eligibility Date Funding Source Not [facility] Eligible 08/13/25 Private Coding Level of Care Code Est Pt Prev Care >65y(54525) Diagnoses Annual physical exam Z00.00 SILVERIO (obstructive sleep apnea) G47.33 Impaired glucose tolerance R73.02 Obesity (BMI 30.0-34.9) E66.9 Gastroesophageal reflux disease without esophagitis K21.9 Esophagitis presence: without esophagitis Fatty liver K76.0 Episodic tension-type headache, not intractable G44.219 Headache chronicity pattern: episodic headache Headache type: tension-type Intractability: not intractable Essential hypertension I10 Hypertension type: essential hypertension Hypercholesterolemia E78.00 Generalized anxiety disorder F41.1 Tubular adenoma of colon D12.6 SOB (shortness of breath) on exertion R06.02 Assessment & Plan Assessment & Plan (1) Annual physical exam: Code(s): Z00.00 - Encounter for general adult medical examination without abnormal findings Category: Medical Plan: Patient is advised to eat healthy, keep well hydrated, keep active and have adequate sleep. (2) SILVERIO (obstructive sleep apnea): Comment: KNOWN CASE OF SILVERIO. USING CPAP REGULARLY, COMPLIANCE IS GOOD . AND HE IS DEFINITELY BENEFITING FROM THE USE OF CPAP. HE LIKES THE NASAL INTERFACE WHICH IS MORE COMFORTABLE. Code(s): G47.33 - Obstructive sleep apnea (adult) (pediatric) Category: Medical Plan: Continue to use the CPAP more than 4 hours a night and benefits from this (3) Impaired glucose tolerance: Code(s): R73.02 - Impaired glucose tolerance (oral) Category: Medical Plan: Decrease the amount of carbohydrate intake, pasta, bread, rice and potatoes are all sugar and that is aside from all the sweet stuff, remember that fruits are good but they are Sweet also. (4) Obesity (BMI 30.0-34.9): Comment: PATIENT REMAINS MODERATELY OBESE. SINCE HIS LAST VISIT HE HAS GAINED ABOUT 4 LB OF WEIGHT . HE IS NOT IN ANY ACTIVE WEIGHT MANAGEMENT PROGRAM. BECAUSE OF HIS ANXIETY DISORDER HE IS NOT GOING OUTDOORS MUCH AND DOES NOT DO ANY EXERCISE. Code(s): E66.9 - Obesity, unspecified Category: Medical Plan: Diet and exercise (5) GERD (gastroesophageal reflux disease): Code(s): K21.9 - Gastro-esophageal reflux disease without esophagitis Category: Medical Qualifiers: Esophagitis presence: without esophagitis Qualified Code(s): K21.9 - Gastro-esophageal reflux disease without esophagitis Plan: Avoid the foods that causes that usually spicy foods, tomato products, juices, coffee, soda and foods that your sensitive to. After eating do not lie down, allow 3-4 hours before in lie down. And keep the head of bed above 30 degrees to avoid the acid from going up. (6) Fatty liver: Comment: 07/2023 Code(s): K76.0 - Fatty (change of) liver, not elsewhere classified Category: Medical Plan: Low-fat diet and exercise (7) Headache: Code(s): R51.9 - Headache, unspecified Category: Medical Qualifiers: Headache chronicity pattern: episodic headache Headache type: tension-type Intractability: not intractable Qualified Code(s): G44.219 - Episodic tension-type headache, not intractable Plan: Continue to follow-up with Neurology has been placed on amitriptyline as well as migraine medication (8) Hypertension: Code(s): I10 - Essential (primary) hypertension Category: Medical Qualifiers: Hypertension type: essential hypertension Qualified Code(s): I10 - Essential (primary) hypertension Plan: Continue with blood pressure medication. Decrease salt intake and exercise patient is on diltiazem and metoprolol (9) Hypercholesterolemia: Code(s): E78.00 - Pure hypercholesterolemia, unspecified Category: Medical Plan: Avoid fried foods, chicken skin, eggs, butter margarine, pastries and meat. Be it pork or beef they have a lot of cholesterol on atorvastatin 20 mg once a day (10) Generalized anxiety disorder: Comment: [facility] Code(s): F41.1 - Generalized anxiety disorder Category: Medical Plan: Continue with counseling and therapy (11) Tubular adenoma of colon: Comment: 2019 Code(s): D12.6 - Benign neoplasm of colon, unspecified Category: Medical (12) SOB (shortness of breath) on exertion: Code(s): R06.02 - Shortness of breath Category: Medical Plan History of Present Illness The patient is a 65-year-old obese male presenting for a physical exam with a past medical history of impaired glucose tolerance, hypertension, esophageal stricture with dilatation, psoriasis, obstructive sleep apnea, generalized anxiety disorder, hypercholesterolemia, hepatic steatosis, Lyme disease in January 2024, and osteoarthritis of the right shoulder. Regarding his headaches and balance issues, he has been seen by neurology. He takes amitriptyline, which he received from the [facility] for anxiety and depression, but has not used any specific migraine medications. For obstructive sleep apnea, he has followed up with pulmonology and uses a CPAP machine. His last colonoscopy was in 2020, which found a tubular adenoma, with a recommendation for a repeat in five years. Ophthalmology follow-up with [facility] revealed hypertensive retinopathy. He has a history of cataract surgery with implants. Lab work from April 13 showed a normal blood count, electrolytes, and renal function, but elevated blood sugar with an HbA1c of 5.9. His cholesterol panel showed an LDL of 100 and triglycerides of 229. B12 and thyroid levels were normal. A neurologist noted his vitamin B6 was too high at 59, and the patient has since stopped taking it. Regarding his right shoulder, he notes pain that prevents him from bowling or lifting, although other movements are fine. He had a prior procedure years ago where a bone spur was ground down. An MRI in March 2024 showed moderate tendinosis with a partial tear and dislocation of the biceps head, but he did not follow up with orthopedics afterward. He reports dyspnea on exertion, particularly when walking fast or skiing, and has used an inhaler in the past for this, though he was never diagnosed with asthma. His last lung function test was normal, but it was over five years ago. His medication regimen includes omeprazole 20mg twice daily, metoprolol 50mg daily, lorazepam as needed, folic acid, diltiazem 180mg daily, and atorvastatin 20mg daily. He has a history of an allergy to clindamycin, but testing showed no reaction. He has no new diagnoses or surgeries since his last visit. [employer] Maintenance A pneumonia vaccine will be administered during this visit. He was counseled to obtain the shingles vaccine at a pharmacy, as he just completed his second dose. He was advised to stop taking vitamin B6 supplements due to elevated levels. Follow-up for a repeat colonoscopy is due in 2025. Wellness plan includes continuing CPAP use. Anxiety management will continue with counseling and therapy. Social History - Alcohol Use: Reports drinking a few times a week, typically on weekends, consuming about two beers per sitting. He notes he has been cutting down. - Tobacco Use: Denies smoking. - Sleep: Uses a CPAP for obstructive sleep apnea. Reports using CBD gummies to help with sleep. - Diet and Exercise: He has been walking to help lose weight. Follows a low-fat diet. Review of Systems - Neurological: Reports lightheadedness upon standing up quickly. Denies syncope. Reports a history of headaches and balance issues which are now improved. - Cardiovascular: Denies waking up short of breath. Reports dyspnea on exertion, especially with walking fast or skiing. - ENT: Reports persistent tinnitus. He sees well but requires reading glasses. Denies eye pain or pressure problems. - Musculoskeletal: Reports right shoulder pain that limits activities like bowling and lifting. - Genitourinary: Reports rare nocturia. - Psychiatric: Reports a history of generalized anxiety disorder. Physical Exam General: Cooperative, healthy appearing, comfortable, no acute distress and well developed Orientation: Patient oriented x3 Limitations: No limitations Head: Normal to inspection Ears: Hearing grossly normal bilaterally, but patient reports ringing in the ears Nose: Normal external nose present Face and sinus: Normal facial exam Eyes: Appearance normal, both eyes and all related structures; patient has hypertensive retinopathy Neck: Normal visual inspection and Yes full ROM Respiratory: Normal respiratory effort and able to speak in complete sentences. Clear to auscultation bilaterally; patient reports shortness of breath on exertion Cardiovascular: Regular rate and rhythm. Normal S1 and S2 GI: Normal to inspection. Soft to palpation and nontender Skin: No rashes or lesions noted Neuro: Patient oriented x3; patient reports balance issues Extremities: Normal to inspection; patient reports osteoarthritis of the right shoulder with moderate tendinosis and partial tearing, dislocation of the biceps head noted in MRI from March 2024 Results - Lab Results (April 13): - Complete blood count: Normal. - Electrolytes and Renal function: Normal. - Fasting Blood Sugar: 118 mg/dL. - Hemoglobin A1c: 5.9%. - Liver function tests: Normal. - Lipid Panel: LDL 100 mg/dL, Triglycerides 229 mg/dL. - Vitamin B12: Normal. - Thyroid function: Normal. - Vitamin B6: 59 (Normal range 2-21). - Imaging: - Right Shoulder MRI (March 2024): Revealed moderate tendinosis with partial tearing and medial dislocation of the biceps head. - Procedures: - Colonoscopy (2020): Showed a tubular adenoma. - Pulmonary Function Test (>5 years ago): Normal. Plan Patient was informed and verbally consented to the use of an ambient scribe for clinic note documentation during this visit. 1. Prediabetes The patient's hemoglobin A1c is 5.9% and fasting blood sugar is 118 mg/dL, consistent with prediabetes. These values are elevated but do not meet the criteria for diabetes. Management will continue to focus on diet and exercise to prevent progression. 2. Hyperlipidemia, Mixed The patient's LDL cholesterol is at goal at 100 mg/dL while on atorvastatin 20 mg daily. However, his triglycerides are elevated at 229 mg/dL. The plan is to continue atorvastatin 20 mg once a day and reinforce lifestyle modifications, including diet and exercise, to address the hypertriglyceridemia. 3. Essential Hypertension Blood pressure is well-controlled on his current regimen of diltiazem and metoprolol. The plan is to continue these medications as prescribed and breastfeeding peer counselor on alcohol reduction, as it can negatively impact blood pressure. 4. Osteoarthritis Of The Right Shoulder The patient reports persistent right shoulder pain that limits his activities. An MRI from March 2024 revealed moderate tendinosis with a partial tear and biceps head dislocation, for which he did not have a follow-up. A referral will be made to Orthopedics for further evaluation and management. 5. Dyspnea On Exertion The patient experiences shortness of breath with exertion, such as skiing. Given his prior normal lung function test, a cardiac etiology needs to be considered. A cardiac stress test will be ordered to evaluate his heart. A prescription for an inhaler will also be provided for symptomatic relief. 6. Obstructive Sleep Apnea The patient follows with pulmonology for this condition. He will be advised to continue using his CPAP for more than 4 hours per night as he benefits from it. 7. Gastroesophageal Reflux Disease Management includes continuing omeprazole twice daily and lifestyle modifications such as a low-fat diet and exercise. Discussion Notes I reviewed the patient's recent lab results with him, highlighting the elevated hemoglobin A1c of 5.9% and triglycerides of 229. We discussed that while his LDL is well-controlled on atorvastatin, the triglyceride level requires attention through diet and exercise. I also explained that his vitamin B6 level was too high, and he confirmed he has stopped taking the supplement. We discussed his persistent right shoulder pain and the findings on his MRI from March 2024, which showed tendinosis, a partial tear, and biceps head dislocation. Since he did not follow up after the imaging, I informed him I would place a referral to Orthopedics for further management. Regarding his dyspnea on exertion, I explained that since his prior lung function tests were normal, it is important to evaluate for a cardiac cause. He agreed to a cardiac stress test, and I will also provide a prescription for an inhaler for symptomatic relief. I counseled him on lifestyle modifications, including the importance of reducing alcohol intake due to its correlation with hypertension and memory problems. We had a detailed discussion about weight loss medications, such as weekly GLP-1 agonist injections. I outlined the benefits, including effective weight loss and reduction in cardiovascular risk, as well as potential side effects like worsening heartburn, cost, and lack of long-term data. He decided to defer starting this medication and will continue with diet and exercise for now. Finally, we reviewed his vaccination status. He is up to date on his flu and shingles shots, and he agreed to receive the pneumonia vaccine during today's visit. Patient Instructions - Continue to take your medications as prescribed, including diltiazem, metoprolol, atorvastatin, and omeprazole. - Use your CPAP machine for more than 4 hours each night to treat your sleep apnea. - We will send a referral for you to see an coverage specialist for your right shoulder pain. They will contact you to schedule an appointment. - We will order a cardiac stress test (treadmill test) to check your heart because of your shortness of breath. The facility will call you to schedule this. - A prescription for an inhaler will be sent to your pharmacy to use as needed for shortness of breath. - You will receive a pneumonia vaccine today. - Since you recently completed your shingles vaccine series, remember to get the RSV vaccine, which is available at your pharmacy. - Continue with a healthy diet and regular exercise to help lower your blood sugar, triglycerides, and manage your weight. - It is recommended to reduce or avoid alcohol, as it can affect your blood pressure and memory. - Stop taking any vitamin B6 supplements, as your blood level is too high. - To prevent dizziness, make sure to drink plenty of fluids and get up slowly from a sitting or lying position. - Your next colonoscopy is due in 2025. Follow up with your route jumper to schedule it. Orders: Orders CA stress test Today R06.02 - Shortness of breath Pneumococcal 20 Immunization Today Z23 - Encounter for immunization Referrals Gastroenterology Referral D12.6 - Benign neoplasm of colon, unspecified Orthopedics Referral M75.81 - Other shoulder lesions, right shoulder Medications: New albuterol sulfate 90 mcg/actuation (Ventolin HFA) 2 puffs inhalation Q6H PRN 8.5 grams 0RF shortness of breath or wheezing M75.81 - Other shoulder lesions, right shoulder
--- OUTSIDE RECORDS SUMMARY | 2025-08-13 12:46 | XMS_ITS | Patient Health Record ---
Author Organization [facility] Address [address] [place] [address] Care Team Providers Care Garden Center Manager Name Role Phone Po Tracy YEUNG Primary Care Provider Dayron Wakefield [phone] Allergies No Known Allergies Reason For Referral No Information Medications Medication SIG (Take, Route, Frequency, Duration) Notes Start Date End Date Status Metoprolol Tartrate 50 MG 1 tablet with food Orally Twice a day; Duration: 30 day(s) Active LORazepam 0.5 MG 1 tablet at bedtime as needed Orally Once a day Active Atorvastatin Calcium 20 MG 1 tablet Oral ly Once a day; Duration: 30 day(s) Active Diltiazem HCl CR 180 MG/24HR 1 capsule Orally Once a day; Duration: 30 day(s) Active Omeprazole 20 MG 1 capsule 30 minutes before morning meal Orally Once a day; Duration: 30 day(s) Active buPROPion HCl 150 MG as directed Orally Active Escitalopram Oxalate 5 MG Oral; Duration: 5 Active Calcium Citrate Acti ve Omeprazole 40 MG 1 capsule Orally Twi ce a day; Duration: 90 days 01/30/2025 Active Vitamin B6 Active Vitamin D3 Active Aspirin 81 81 MG 1 tablet Orally Once a day; Duration: 30 day(s) Active Folic Acid 400 MCG 1 tablet Orally Once a day; Duration: 30 day(s) Active Omeprazole 40 MG TAKE 1 CAPSULE BY [facility] TWO TIMES A DAY Orally Twice a day; Duration: 90 days Active Immunizations Vaccine Route Administration [...] Problem Status W/U Status Risk Notes Problem Screening for malignant neoplasm of colon (024091254) Encounter for screening for malignant neoplasm of colon (Z12.11) Active confirmed Problem Dysphagia (22338264) Dysphagia (R13.10) Active confirmed Problem Esophageal reflux finding (640722723) Gastroesophageal reflux (K21.9) Active confirmed Problem Diverticulosis of colon (516358868) Diverticulosis of colon (K57.30) Active confirmed Problem Esophageal dysphagia (84982229) Esophageal dysphagia (R13.19) Active confirmed Encounters Encounter Location Date Provider Diagnosis [facility] [address] [place] [address] 01/30/2025 Dayron Yousif Plan Of Treatment Future Test Test Name Order Date UPPER GI ENDOSCOPY BALLOOON DILATION OF ESOPH 08/10/2021 COLONOSCOPY 08/10/2021 Insurance Providers Payer Name Payer Address Payer Phone Subscriber Number Group Number Insured Name Patient Relationship to Insured Coverage Start Date Coverage End Date [facility] (REFERRA L NEEDED) [address] [place] [phone] [id number] DAVID HUDSON Self - patient is the insured Medical (General) History Medical History History ICD Code Hx of kidney stones Sleep apnea- CPAP machine Hypertension Denies DE,DM,CVA,Lung disease,renal dise ase Hyperlipidemia Anxiety He describes a negative screening colono scopy [address] Austin SANCHEZ and a history of what s ounds like an esophageal stricture for which he has undergone 2 previous upper endoscopies with dilations at least 10 years ago Surgical History Surgery Date(Month/Year) knee left right shoulder Cataracts/Lens implants
--- OUTSIDE RECORDS SUMMARY | 2025-08-13 12:46 | XMS_ITS | Clinical Summary ---
Author Organization [facility] Address [address] [place] [address] Care Team Providers Care Derrick Builder Name Role Phone Oskar Aguilar MD Primary Care Provider [phone] Allergies No known active allergies Medications Medication [...] of 2) 2010 Influenza Vaccine (#1) 2025 Fall Risk Assessment 2025 Pneumococcal Vaccine (1 of 1 - [...] Group Subscriber ID Effective Dates Phone Address [facility] [id number] 2017-Rhonda t [address] [facility] [address] [place] [phone] O Care Teams Derrick Builder Relationship Specialty Start Date End Date Oskar Aguilar MD [address] [place] [address] [place] [address] PCP - General Internal Medicine 04/30/17
--- OUTSIDE RECORDS SUMMARY | 2025-08-13 12:46 | XMS_ITS | Clinical Summary ---
Author Organization [facility] it Address [address] [place] [address] Care Team Providers Care Publishing Manager Name Role Phone Orquidea Hill MD Primary Care Provider [phone] Surgical History Surgery Date Site/Laterality Comments OTHER SURGICAL HISTORY PROCEDURE: [place] ENDOSCOPY UPPER SMALL INTESTINE OTHER SURGICAL HISTORY PROCEDURE: [place] EGD BALLOON DILATION ESOPHAGUS <30 MM DIAM; COMMENT: x 2 OTHER SURGICAL HISTORY PROCEDURE: COLONOSCOPY, SURGICAL KNEE ARTHROSCOPY W/ MENISCAL REPAIR PROCEDURE: [place] ARTHROSCOPY KNEE W/MENISCUS RPR MEDIAL/LATERAL; COMMENT: left side SHOULDER ARTHROSCOPY PROCEDURE: [place] SURGICAL ARTHROSCOPY SHOULDER W/LSS&RESCJ ADS; COMMENT: right [...] Health Maintenance Due Date Last Done Comments Colorectal Cancer Screening: Colonoscopy 1960 DTaP,Tdap,and Td Vaccines (1 - Tdap) 1979 Hepatitis A Vaccines (1 of 2 - Risk 2-dose series) 1979 Pneumococcal Vaccine: 50+ Ye ars (1 of 1 - PCV) 2010 Zoster Vaccines (1 of 2) 2010 Abdominal Aortic Aneurysm (A AA) Screen 09/16/2022 Cholesterol Screening (Lipid Panel) 09/16/2022 Hepatitis C Screening 09/16/2022 Social Influencers of Health Screening 09/16/2022 Hypertension/CHF/CAD Annual BMP Blood Test 09/20/2022 Depression Screening 10/07/2024 COVID-19 Vaccine (1 - 2023-2 5 season) 2025 Influenza Vaccine (#1) 2025 Falls Risk Assessment 2025 RSV Immunization Adult Patie nts (1 [...] Documents on File Type Date Recorded Patient Epilepsy Physician Expl anation Health Care Decision (hx) 12/02/2019 AD JOHNSON DIRECTIVE Health Care Decision (hx) 12/02/2019 AD JOHNSON DIRECTIVE Health Care Decision (hx) 12/02/2019 AD JOHNSON DIRECTIVE Health Care Decision (hx) 12/02/2019 AD JOHNSON DIRECTIVE Care Teams Publishing Manager Relationship Specialty Start Date End Date Orquidea Hill MD PCP - General Internal Medicine 12/10/18
== END 2025-08-13 12:07 | disposition home or self-care (01) ==
LOC: HO.HMCH 10:46
PROVIDERS: PCP Internal Medicine; Visit Provider Internal Medicine
DX: Z00.00 Encounter for general adult medical examination without abnormal findings (principal); G47.33 Obstructive sleep apnea (adult) (pediatric); E66.9 Obesity, unspecified; Z68.32 Body mass index [BMI] 32.0-32.9, adult; R73.02 Impaired glucose tolerance (oral); K21.9 Gastro-esophageal reflux disease without esophagitis; K76.0 Fatty (change of) liver, not elsewhere classified; G44.219 Episodic tension-type headache, not intractable; I10 Essential (primary) hypertension; E78.00 Pure hypercholesterolemia, unspecified; F41.1 Generalized anxiety disorder; Z23 Encounter for immunization; D12.6 Benign neoplasm of colon, unspecified; R06.02 Shortness of breath

== ENCOUNTER → 2025-08-13 10:46 | Outpatient (BNVA) | payer MEDICARE, SELFPAY | PROVIDERS: PCP Internal Medicine; Visit Provider Internal Medicine | DX: Z00.00 Encounter for general adult medical examination without abnormal findings (principal); G47.33 Obstructive sleep apnea (adult) (pediatric); R73.02 Impaired glucose tolerance (oral); E66.9 Obesity, unspecified; K21.9 Gastro-esophageal reflux disease without esophagitis; K76.0 Fatty (change of) liver, not elsewhere classified; G44.219 Episodic tension-type headache, not intractable; I10 Essential (primary) hypertension; E78.00 Pure hypercholesterolemia, unspecified; F41.1 Generalized anxiety disorder; D12.6 Benign neoplasm of colon, unspecified; R06.02 Shortness of breath; Z23 Encounter for immunization | CPT/HCPCS: 90471; 90677; 99397 ==

== ENCOUNTER 2025-09-08 09:11 | Outpatient (AMB) | payer MEDICARE, OTHER, SELFPAY ==
[2025-09-08 09:17] VITALS: BMI 31.9
--- NOTE | 2025-09-08 09:17 | MHC.OFFVIS ---
Vital Signs 09/08/25 09:17 Height 6 ft Weight 235 lb BMI 31.9 Intake Visit Reasons: OV- RT shoulder pain Intake Note: Marquez is a 65 year old male who presents today for a follow up with complaints of right shoulder pain. Patient was previously seen in January of 2024, an MRI was ordered and obtained. Today patient reports his pain has been increasingly getting worse. Patient complains of loss of range of motion, stating that he is unable to reach above his head. His pain is located on top of shoulder. Web Production Manager Required: No Allergies clindamycin Adverse Reaction (Verified 09/08/25 09:18) Anaphylaxis Medication List - Last Reconciled 09/08/25 by Gretchen Morales PA-C albuterol sulfate 90 mcg/actuation (Ventolin HFA) 2 puffs inhalation Q6H PRN amitriptyline 25 mg PO BEDTIME aspirin (Adult Low Dose Aspirin) 81 mg PO DAILY atorvastatin 20 mg PO DAILY 90 days bupropion HCl XL 450 mg PO DAILY calcium citrate 250 mg PO DAILY cholecalciferol (vitamin D3) 25 mcg PO DAILY clobetasol 0.05% 1 appl topical BID 2 weeks diltiazem HCl CD TAKE 1 CAPSULE BY MOUTH DAILY folic acid 0.4 mg PO DAILY lorazepam 1 mg PO DAILY PRN metoprolol succinate ER 50 mg PO DAILY 90 days omeprazole 40 mg (2 x 20 mg) PO BID HPI HPI OV- RT shoulder pain: Details: 65-year-old gentleman returns to the office today for ongoing right shoulder pain. I saw him back in January of 2020 for an ordered an MRI of the right shoulder. Unfortunately he did not follow up with us status post MRI. He continues to have pain with overhead reaching associated with weakness. He did have right shoulder arthroscopy with Dr. Vega proximally 5 years ago. He does not recall any new injuries. [facility] Medical History Dyspnea on exertion LFT elevation SILVERIO (obstructive sleep apnea) Obesity (BMI 30.0-34.9) GERD (gastroesophageal reflux disease) Hypertension Impaired glucose tolerance Surgical History H/O left knee surgery History of shoulder surgery History of cataract surgery Family History Mother Heart attack Father No problems noted. Brother No problems noted. Sister No problems noted. Sister No problems noted. Brother Heart attack Son No problems noted. Son No problems noted. Daughter No problems noted. Social History (Updated 08/13/25 @ 11:38 by Tracy Peraza MD) Housing: House Alcohol intake: current Alcohol intake frequency: a few times a week Comment: 3x a week 3-4 beers, 2-3 days a weeks, 2 beers Patient Tobacco Use Status: Former Tobacco user Tobacco use type: Cigarette Years Smoked: Quit 1998 e-Cigarette/Vaping Use: Never Used Second Hand Smoke Exposure: No service: No Current occupational status: retired Current occupation: right hand dominant Cognitive needs: No Hearing needs: No Vision needs: Yes (reading glasses) Review of Systems Const All systems reviewed & are unremarkable except as noted in HPI and below Physical Exam Vital Signs: BMI result Body Mass Index 31.9 Const General: cooperative, healthy appearing, comfortable, no acute distress, well developed and alert Orientation/consciousness: patient oriented x3 HEENT Head: Yes normal to inspection, Yes normocephalic and Yes atraumatic Eyes General: appearance normal, both eyes and all related structures Resp Effort & Inspection: normal respiratory effort and able to speak in complete sentences Cardio Rate: regular rate Peripheral pulses: Peripheral pulses 2+ throughout GI Palpation (GI): Soft to palpation Skin Lesions: no lesions Rashes: no rashes Neuro General: patient oriented x3 Extrem Other: Right shoulder normal to inspection. He can perform forward flexion to approximately 100 degrees. External rotation to 90. Can internally rotate to the back pocket. He is able to perform rotator cuff strength testing with pain and recruitment of accessory muscles. Results Reviewed Results Reviewed: MR shoulder RT wo con 03/17/24 IMPRESSION: 1. Moderate subscapularis tendinosis with distal articular surface partial tearing, increased in prominence when compared to the prior examination. Minimal distal supraspinatus tendinosis, unchanged. 2. Medial dislocation of the proximal long head biceps tendon through the subscapularis tendon tear. Proximal long head biceps tendinosis and longitudinal partial tearing, slightly increased when compared to the prior examination. 3. Nondisplaced undersurface tearing of the superior, posterosuperior, posterior, and posteroinferior labrum, increased in prominence when compared to the prior examination. New posterior parameniscal cyst measuring up to 1.7 cm. 4. Mild chronic posterior subluxation of the humeral head with [id number] glenohumeral osteoarthritis, slightly progressed when compared to the prior examination. Trace joint effusion. Assessment & Plan Assessment & Plan (1) Right rotator cuff tear: Code(s): M75.101 - Unspecified rotator cuff tear or rupture of right shoulder, not specified as traumatic Category: Medical Plan: I discussed the case with Dr. Vega who is familiar with the patient who feels the extent of his MRI findings would be best handled by Dr. Lazaro who does more extensive shoulder surgeries. I discussed with the patient the findings on his MRI and explained with his limitations and pain he may benefit from surgical intervention however it is unclear to which extent whether it be rotator cuff repair or just a debridement. I did briefly described the surgeries to him along with the postop recovery course. The patient does express understanding. I would like him to meet with Dr. Lazaro to discuss this further to form a more definitive plan. The patient is content with this plan. Medications: New celecoxib (Celebrex) 200 mg PO BID 28 caps 0RF 14 days Coding Level of Care Code Complex visit Add On G2211 Diagnoses Right rotator cuff tear M75.101
== END 2025-09-08 09:42 | disposition home or self-care (01) ==
LOC: HO.HOS 09:12
PROVIDERS: PCP Internal Medicine; Visit Provider Physician Assistant
DX: M75.101 Unspecified rotator cuff tear or rupture of right shoulder, not specified as traumatic (principal)
CPT/HCPCS: 99213; G2211

== ENCOUNTER → 2025-09-08 09:11 | Outpatient (BNVA) | payer MEDICARE, OTHER, SELFPAY | PROVIDERS: PCP Internal Medicine; Visit Provider Physician Assistant | DX: M75.101 Unspecified rotator cuff tear or rupture of right shoulder, not specified as traumatic (principal); M19.011 Primary osteoarthritis, right shoulder; Z79.82 Long term (current) use of aspirin; Z87.891 Personal history of nicotine dependence | CPT/HCPCS: 99212 ==

== ENCOUNTER → 2025-09-21 09:18 | Outpatient (REF) | payer MEDICARE, OTHER, SELFPAY ==
--- NOTE | 2025-09-21 09:21 | CA_ITS ---
Acquisition Time: 2025-09-21 09:28:35 Total Exercise Time: 00:09:46 Test Indications: SOB Medications: Protocol: RILEY Max HR: 134 BPM 86% of Pred: 155 BPM Max BP: 170/66 mmHG Max Work Load: 11.3 METS Exercise stress test with exercise 9 mins 46 secs of Riley Protocol, achieving 86% MPHR, with reports of SOB, no chest pain, with isolated PACs and frequent PVCs, with normotensive response to exercise. Without any EKG changes meeting criteria for ischemia. In recovery, breathing improved and pt feeling back to baseline. Test reviewed with Dr. Virk. Referred By: Tracy Peraza Electronically Signed By: Edilson Seymour
--- OUTSIDE RECORDS SUMMARY | 2025-09-21 10:44 | XMS_ITS | Clinical Summary ---
Author Organization [facility] Prior to 03/06/[address] [place] [address] Care Team Providers Care Finance Vice President Name Role Phone Oskar Aguilar MD Primary Care Provider [phone] Allergies No known active allergies Medications Medication [...] Group Subscriber ID Effective Dates Phone Address [facility] [id number] 2017-Rhonda [address] [address] [place] [address] [facility] Care Teams Finance Vice President Relationship Specialty Start Date End Date Oskar Aguilar MD [address] [place] [address] [address] [place] [id number] PCP - General Internal Medicine 04/30/17
--- OUTSIDE RECORDS SUMMARY | 2025-09-21 10:44 | XMS_ITS | Patient Health Record ---
Author Organization [facility] Address [address] [place] [address] Care Team Providers Care Roller Varnisher Name Role Phone Po Tracy YEUNG Primary Care Provider Dayron Wakefield [phone] Allergies No Known Allergies Reason For Referral No Information Medications Medication SIG (Take, Route, Frequency, Duration) Notes Start Date End Date Status Metoprolol Tartrate 50 MG Tablet 1 tablet with food Orally Twice a day; Duration: 30 day(s) Active LORazepam 0.5 MG Tablet 1 tablet at bedt sunny as needed Orally Once a day Active Atorvastatin Calcium 20 MG Tablet 1 tablet Orally Once a day; Duration: 30 day(s) Active Diltiazem HCl CR 180 MG/24HR Capsule Extended Release 24 Hour 1 capsule Orally Once a day; Duration: 30 day(s) Active Omeprazole 20 MG Capsule Delayed Release 1 capsule 30 minutes before morning meal Orally Once a day; Duration: 30 day(s) Active buPROPion HCl 150 MG Tablet Extended Release as directed Orally Activ e Escitalopram Oxalate 5 MG Tablet Oral; Duration: 5 Active Calcium Citrate Acti ve Omeprazole 40 MG Capsule Delayed Release 1 capsule Orally Twice a day; Duration: 90 days 01/30/2025 Active Vitamin B6 Active Vitamin D3 Active Aspirin 81 81 MG Tablet Delayed Release 1 tablet Orally Once a day; Duration: 30 day(s) Active Folic Acid 400 MCG Tablet 1 tablet Orall y Once a day; Duration: 30 day(s) Active Omeprazole 40 MG Capsule Delayed Release TAKE 1 CAPSULE BY MOUTH TWO TIMES A DAY Orally Twice a day; Duration: 90 days Active Immunizations Vaccine Route Administration Date Status Comme nts Influenza Unknown 07/26/2021 Administered Social History Tobacco Use: Social History Observation Description Date Details (start date - stop date) Former Smoker NA - NA Social History Drugs/Alcohol: Social Info Question Answer Notes Alcohol Screen Did you have a drink containing alcohol in the past year? Yes How often did you have a drink containing alcohol in the past year? 2 to 3 times a week (3 points) How many drinks did you have on a typical day when you were drinking in the past year? 3 or 4 drinks (1 point) How often did you have 6 or more drinks on one occasion in the past year? Never (0 point) Points 4 Interpretation Positive Tobacco Use: Social Info Question Answer Notes Tobacco Use/Smoking Patient is a former smoker How long has it been since you last smoked? > 10 years Additional Details Category Social Info Options Details Miscellaneous: Marital status: Occupation: retired Section Notes: Nonsmoker; 3-4 beers 4 or 5 times a week Problems Problem Type SNOMED Code ICD Code Onset Dates Problem Status W/U Status Risk Notes Problem Screening for malignant neoplasm of colon (263077311) Encounter for screening for malignant neoplasm of colon (Z12.11) Active confirmed Problem Dysphagia (68007654) Dysphagia (R13.10) Active confirmed Problem Esophageal reflux finding (103928385) Gastroesophageal reflux (K21.9) Active confirmed Problem Diverticulosis of colon (551878895) Diverticulosis of colon (K57.30) Active confirmed Problem Esophageal dysphagia (77698280) Esophageal dysphagia (R13.19) Active confirmed Encounters Encounter Location Date Provider Diagnosis [facility] [address] [facility] [address] [place] [address] 01/30/2025 Dayron Yousif Plan Of Treatment Future Test Test Name Order Date UPPER GI ENDOSCOPY BALLOOON DILATION OF ESOPH 08/10/2021 COLONOSCOPY 08/10/2021 Insurance Providers Payer Name Payer Address Payer Phone Subscriber Number Group Number Insured Name Patient Relationship to Insured Coverage Start Date Coverage End Date [facility]ICARE OF [facility] [address] [place] [id number] [phone] [id number] DAVID HUDSON Self - patient is the insured Medical (General) History Medical History History ICD Code Hx of kidney stones Sleep apnea- CPAP machine Hypertension Denies ID,DM,CVA,Lung disease,renal dise ase Hyperlipidemia Anxiety He describes a negative screening colono scopy [address] Avila GERD and a history of what s ounds like an esophageal stricture for which he has undergone 2 previous upper endoscopies with dilations at least 10 years ago Surgical History Surgery Date(Month/Year) knee left right shoulder Cataracts/Lens implants
--- OUTSIDE RECORDS SUMMARY | 2025-09-21 10:45 | XMS_ITS | Clinical Summary ---
Author Organization [facility] it Address [address] [place] [address] Care Team Providers Care Drapery Operator Name Role Phone Orquidea Hill MD Primary Care Provider [phone] Surgical History Surgery Date Site/Laterality Comments OTHER SURGICAL HISTORY PROCEDURE: [place] ENDOSCOPY UPPER SMALL INTESTINE OTHER SURGICAL HISTORY PROCEDURE: [place] EGD BALLOON DILATION ESOPHAGUS <30 MM DIAM; COMMENT: x 2 OTHER SURGICAL HISTORY PROCEDURE: COLONOSCOPY, SURGICAL KNEE ARTHROSCOPY W/ MENISCAL REPAIR PROCEDURE: [place] ARTHROSCOPY KNEE W/MENISCUS RPR MEDIAL/LATERAL; COMMENT: left side SHOULDER ARTHROSCOPY PROCEDURE: [place] SURGICAL ARTHROSCOPY SHOULDER W/LSS&RESCJ ADS; COMMENT: right [...] Used Date Smoking Tobacco: Former Cigarettes 1 Q uit: 12/12/1998 Smokeless Tobacco: Never Alcohol Use Standard Drinks/Week Comments Yes 0 (1 standard drink = 0.6 oz pur e alcohol) Sex and Gender Information Value Date Recorded Sex Assigned at Not on file Legal Sex Male 9:43 PM EST Gender Identity Not on file Sexual Orientation Not on file Plan of Treatment Health Maintenance Due Date [...] Depression Screening 10/07/2024 COVID-19 Vaccine (1 - 2024-2 6 season) 2025 Influenza Vaccine (#1) 2025 Falls [...] Documents on File Type Date Recorded Patient Endless Steamer Tender Expl 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
== END ==
LOC: HO.CARD 09:18
PROVIDERS: PCP Internal Medicine; Visit Provider Internal Medicine
DX: R06.02 Shortness of breath (principal)
CPT/HCPCS: 93017

== ENCOUNTER → 2025-09-21 09:21 | Outpatient (BNV) | payer MEDICARE, OTHER, SELFPAY | PROVIDERS: PCP Internal Medicine | DX: I49.1 Atrial premature depolarization (principal); I49.3 Ventricular premature depolarization; R06.02 Shortness of breath | CPT/HCPCS: 93016; 93018 ==

== ENCOUNTER 2025-09-22 09:35 | Outpatient (AMB) | payer MEDICARE, OTHER, SELFPAY ==
--- NOTE | 2025-09-22 09:40 | A.OFFVIS_ITS ---
Vital Signs 09/22/25 09:42 Height 6 ft Weight 244 lb 11.41 oz BMI 33.2 BP 120/70 Blood Pressure Location Lt brachial Position Sitting Pulse 70 Pulse Source Pulse Oximeter Pulse Oximetry (%) 96 Oxygen Delivery Method Room Air Intake Visit Reasons: Obstructive sleep apnea Intake Note: pt is here for follow up and states cpap is going well. Operations Asst Required: No Ground Crew Supervisor: Ground Crew Supervisor offered & declined Allergies clindamycin Adverse Reaction (Verified 09/22/25 09:51) Anaphylaxis Medication List - Last Reconciled 09/22/25 by Alfredito Rivas MD albuterol sulfate 90 mcg/actuation (Ventolin HFA) 2 puffs inhalation Q6H PRN amitriptyline 25 mg PO BEDTIME aspirin (Adult Low Dose Aspirin) 81 mg PO DAILY atorvastatin 20 mg PO DAILY 90 days bupropion HCl XL 450 mg PO DAILY calcium citrate 250 mg PO DAILY celecoxib (Celebrex) 200 mg PO BID 14 days cholecalciferol (vitamin D3) 25 mcg PO DAILY clobetasol 0.05% 1 appl topical BID 2 weeks diltiazem HCl CD TAKE 1 CAPSULE BY MOUTH DAILY folic acid 0.4 mg PO DAILY lorazepam 1 mg PO DAILY PRN metoprolol succinate ER 50 mg PO DAILY 90 days omeprazole 40 mg (2 x 20 mg) PO BID Do you need a note to return to daycare/school/sports/work: No HPI HPI Obstructive sleep apnea: Details: This 65 years old gentleman is here for 6 months follow-up for his sleep apnea He has been using his CPAP very regularly and sleeping well at least 6-7 hours per night. He has put on a few more lb of weight. Still has complaint of getting short of breath on moderately heavy exertion, but no wheezing, or cough. On his last visit spirometry was normal. He had a cardiac stress test yesterday and he was told that it was normal. He does understand that his shortness of breath is due to putting on more weight and some deconditioning. ON LICENSE OF [facility] Medical History Dyspnea on exertion LFT elevation SILVERIO (obstructive sleep apnea) Obesity (BMI 30.0-34.9) GERD (gastroesophageal reflux disease) Hypertension Impaired glucose tolerance Surgical History H/O left knee surgery History of shoulder surgery History of cataract surgery Family History Mother Heart attack Father No problems noted. Brother No problems noted. Sister No problems noted. Sister No problems noted. Brother Heart attack Son No problems noted. Son No problems noted. Daughter No problems noted. Social History Housing: House Alcohol intake: current Alcohol intake frequency: a few times a week Comment: 3x a week 3-4 beers, 2-3 days a weeks, 2 beers Patient Tobacco Use Status: Former Tobacco user Tobacco use type: Cigarette Years Smoked: Quit 1998 e-Cigarette/Vaping Use: Never Used Second Hand Smoke Exposure: No service: No Current occupational status: retired Current occupation: right hand dominant Cognitive needs: No Hearing needs: No Vision needs: Yes (reading glasses) Review of Systems Const All systems reviewed & are unremarkable except as noted in HPI and below Eyes Reports no additional complaints ENT Reports no additional complaints Card Reports no additional complaints Resp Reports no additional complaints GI Reports heartburn (GERD SYMPTOMS CONTROLLED WITH OMEPRAZOLE) Reports no additional complaints Musc Reports no additional complaints Skin/Breast Reports system reviewed and no additional complaints, except as documented Neuro Reports no additional complaints Psych Reports depression (Mild, controlled with minimal medication) Endo Reports no additional complaints Aller/Immun Reports no additional complaints Physical Exam Vital Signs: Last Vital Signs Pulse 70 09/22/25 09:42 BP 120/70 09/22/25 09:42 Pulse Ox 96 09/22/25 09:42 Oxygen Delivery Method Room Air 09/22/25 09:42 BMI result Body Mass Index 33.2 Const General: healthy appearing (Except for overweight .), comfortable, no acute distress, alert and awake Orientation/consciousness: patient oriented x3 HEENT Head: Yes normal to inspection General nose exam: No nasal polyps present and No nasal discharge present Face and sinus: Yes sinuses nontender Mouth: oropharynx normal Throat: Yes posterior oropharynx normal Eyes General: appearance normal, both eyes and all related structures Neck Neck: Yes normal visual inspection, Yes no lymphadenopathy, Yes trachea midline and Yes no JVD Thyroid: Thyroid normal Chest Chest palpation & inspection: normal inspection of the chest, normal palpation of entire chest wall and no tenderness Resp Effort & Inspection: normal respiratory effort Auscultation: clear to auscultation bilaterally, no rhonchi and no wheezes Percussion: percussion normal Cardio Palpation: normal PMI Rate: regular rate Rhythm: regular rhythm Heart sounds: no gallops and no murmurs Peripheral pulses: Peripheral pulses 2+ throughout GI Palpation (GI): Soft to palpation, nontender, No hepatosplenomegaly present and no masses Auscultation: normal bowel sounds Back/Spine/Pelvis Thoracic/Lumbar Spine: thoracic and lumbar spine normal to inspection Skin General skin exam: no rashes or lesions noted and dry skin (RELATED TO PSORIASIS) Neuro General: patient oriented x3 and no focal motor deficits Cranial nerves: Yes CN's II-XII intact bilaterally Extrem General: Yes normal to inspection, Yes no clubbing, cyanosis or edema and Yes no calf tenderness Psych Appearance: grossly normal and well kempt Speech and movement: Normal speech and movement present Results Reviewed Results Reviewed: Compliance report for the last 30 nights reviewed. He has used 30/30 nights, 100% and average use it per night 7 hours 22 minutes. There is very little air leak and residual AHI only 0.6 Assessment & Plan Assessment & Plan (1) SILVERIO (obstructive sleep apnea): Comment: KNOWN CASE OF SILVERIO. USING CPAP REGULARLY, COMPLIANCE IS GOOD . AND HE IS DEFINITELY BENEFITING FROM THE USE OF CPAP. HE LIKES THE NASAL INTERFACE WHICH IS MORE COMFORTABLE. Code(s): G47.33 - Obstructive sleep apnea (adult) (pediatric) Category: Medical Plan: Commended for good compliance. Advised to continue using CPAP regularly. (2) Obesity (BMI 30.0-34.9): Comment: PATIENT REMAINS MODERATELY OBESE. SINCE HIS LAST VISIT HE HAS GAINED ABOUT 9 LB OF WEIGHT . HE IS NOT IN ANY ACTIVE WEIGHT MANAGEMENT PROGRAM. BECAUSE OF HIS ANXIETY DISORDER HE IS NOT GOING OUTDOORS MUCH AND DOES NOT DO ANY EXERCISE. Code(s): E66.9 - Obesity, unspecified Category: Medical Plan: Talked to him in detail and stressed that he has to cut down the calories intake, cut down intake of carbs and also portions of his meals. He missed start doing some exercise., even just walking about 2 miles every day. Coding Level of Care Code Est Pt Level 3 (17925) Diagnoses SILVERIO (obstructive sleep apnea) G47.33 Obesity (BMI 30.0-34.9) E66.9
[2025-09-22 09:42] VITALS: BP 120/70; PULSE 70; O2SAT 96; BMI 33.2
--- OUTSIDE RECORDS SUMMARY | 2025-09-22 11:04 | XMS_ITS | Clinical Summary ---
Author Organization [employer] [facility] Prior to 03/06/[address] [place] [address] Care Team Providers Care Fuel Dock Attendant Name Role Phone Oskar Aguilar MD Primary Care Provider [phone] Allergies No known active allergies Medications Medication [...] Group Subscriber ID Effective Dates Phone Address [facility] [id number] [address] [place] [address] [facility] Care Teams Fuel Dock Attendant Relationship Specialty Start Date End Date Oskar Aguilar MD [address] [place] [address] [address] [id number] PCP - General Internal Medicine 04/30/17
--- OUTSIDE RECORDS SUMMARY | 2025-09-22 11:04 | XMS_ITS | Patient Health Record ---
Author Organization [facility] Address [address] [place] [address] Care Team Providers Care Swift Tender Name Role Phone Po Tracy YEUNG Primary Care Provider Dayron Wakefield [phone] Allergies No Known Allergies Reason For Referral [...] Problem Screening for malignant neoplasm of colon (452964138) Encounter for screening for malignant neoplasm of colon (Z12.11) Active confirmed Problem Dysphagia (07306836) Dysphagia (R13.10) Active confirmed Problem Esophageal reflux finding (027785686) Gastroesophageal reflux (K21.9) Active confirmed Problem Diverticulosis of colon (279981711) Diverticulosis of colon (K57.30) Active confirmed Problem Esophageal dysphagia (51708955) Esophageal dysphagia (R13.19) Active confirmed Encounters Encounter Location Date Provider Diagnosis [facility] [address] [facility] [address] [place] [address] 01/30/2025 Dayron Yousif Plan Of Treatment Future Test Test Name Order Date UPPER GI ENDOSCOPY BALLOOON DILATION OF ESOPH 08/10/2021 COLONOSCOPY 08/10/2021 Insurance Providers Payer Name Payer Address Payer Phone Subscriber Number Group Number Insured Name Patient Relationship to Insured Coverage Start Date Coverage End Date MEDICARE OF [facility] [address] [place] [id number] [phone] [id number] DAVID HUDSON Self - patient is the insured Medical (General) History Medical History History ICD Code Hx of kidney stones Sleep apnea- CPAP machine Hypertension Denies LA,DM,CVA,Lung disease,renal dise ase Hyperlipidemia Anxiety He describes a negative screening colono scopy [address] Avila GERD and a history of what s ounds like an esophageal stricture for which he has undergone 2 previous upper endoscopies with dilations at least 10 years ago Surgical History Surgery Date(Month/Year) knee left right shoulder Cataracts/Lens implants
--- OUTSIDE RECORDS SUMMARY | 2025-09-22 11:04 | XMS_ITS | Clinical Summary ---
Author Organization [facility] it Address [address] [place] [address] Care Team Providers Care Health Systems Analyst Name Role Phone Orquidea Hill MD Primary Care Provider [phone] Surgical History Surgery Date Site/Laterality Comments OTHER SURGICAL HISTORY PROCEDURE: [place] ENDOSCOPY UPPER SMALL INTESTINE OTHER SURGICAL HISTORY PROCEDURE: [place] EGD BALLOON DILATION ESOPHAGUS <30 MM DIAM; COMMENT: x 2 OTHER SURGICAL HISTORY PROCEDURE: COLONOSCOPY, SURGICAL KNEE ARTHROSCOPY W/ MENISCAL REPAIR PROCEDURE: [place] ARTHROSCOPY KNEE W/MENISCUS RPR MEDIAL/LATERAL; COMMENT: left side SHOULDER ARTHROSCOPY PROCEDURE: [place] SURGICAL ARTHROSCOPY SHOULDER W/LSS&RESCJ ADS; COMMENT: right [...] Documents on File Type Date Recorded Patient Inspection Machine Tender Expl anation Health Care Decision (hx) 12/02/2019 AD JOHNSON DIRECTIVE Health Care Decision (hx) 12/02/2019 AD JOHNSON DIRECTIVE Health Care Decision (hx) 12/02/2019 AD JOHNSON DIRECTIVE Health Care Decision (hx) 12/02/2019 AD JOHNSON DIRECTIVE Care Teams Health Systems Analyst Relationship Specialty Start Date End Date Orquidae Hill MD PCP - General Internal Medicine 12/10/18
== END 2025-09-22 09:54 | disposition home or self-care (01) ==
PROVIDERS: PCP Internal Medicine; Visit Provider Internal Medicine
DX: G47.33 Obstructive sleep apnea (adult) (pediatric) (principal); E66.9 Obesity, unspecified
CPT/HCPCS: 99213

== ENCOUNTER → 2025-09-22 09:35 | Outpatient (BNVA) | payer OTHER, SELFPAY | PROVIDERS: PCP Internal Medicine; Visit Provider Internal Medicine | DX: G47.33 Obstructive sleep apnea (adult) (pediatric) (principal); E66.9 Obesity, unspecified; Z68.33 Body mass index [BMI] 33.0-33.9, adult; Z99.89 Dependence on other enabling machines and devices | CPT/HCPCS: 99212 ==